=== PATIENT | male | born 1940 | race Caucasian/White ===

== ENCOUNTER 2017-12-16 19:42 | Emergency (ER) | payer MEDICARE, SELFPAY ==
[2017-12-16 19:59] VITALS: BP 159/76; PULSE 60; RESP 16; TEMP 36.6; O2SAT 98
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
[2017-12-16] MEDS: SILVER SULFADIAZINE 1% CREAM 25 GM 1 APPLIC TOP (21:00)
== END 2017-12-16 21:09 | disposition home or self-care (01) ==
PROVIDERS: Emergency Provider Emergency Medicine; Family Provider Internal Medicine; PCP Internal Medicine
DX: T25.122A Burn of first degree of left foot, initial encounter (principal); T25.121A Burn of first degree of right foot, initial encounter; X12.XXXA Contact with other hot fluids, initial encounter
CPT/HCPCS: 99282

== ENCOUNTER → 2019-10-12 11:32 | Outpatient (CLI) | payer MEDICARE, SELFPAY ==
--- NOTE | 2019-10-12 | DI.RAD.S_ITS ---
PROCEDURE: XR CHEST 2V INDICATIONS: Chronic diastolic (congestive) heart failure TECHNIQUE: 2 views of the chest were acquired. COMPARISON: [facility], , CHEST 2 VIEW, 11/01/2012, 9:39. FINDINGS: Surgical changes and devices: Sternotomy wires and CABG clips. Lungs and pleura: Lungs are clear. No pleural effusions or pneumothorax. Presumed high density calcified granulomas projecting in the left lung. Mediastinum: Mediastinal contours are normal. Heart size is normal. Possible small hiatal which could be confirmed with upper GI series as clinically necessary. Bones and chest wall: No suspicious bony abnormalities. Soft tissues appear unremarkable. IMPRESSION: Small hiatal hernia No acute consolidation Dictated by: Jose Auguste M.D. on 10/12/2019 at 15:11 Approved by: Jose Auguste M.D. on 10/12/2019 at 15:13
== END ==
PROVIDERS: Family Provider Internal Medicine; PCP Internal Medicine; Referring Provider Internal Medicine; Visit Provider Internal Medicine
DX: I50.32 Chronic diastolic (congestive) heart failure (principal); K44.9 Diaphragmatic hernia without obstruction or gangrene
CPT/HCPCS: 71046

== ENCOUNTER → 2019-10-16 19:38 | Outpatient (ROUT) | payer MEDICARE, SELFPAY ==
[2019-10-16 19:52] LABS: Add Manual Diff / Slide Review NO; Basophils Absolute Auto 100 /uL (0-100); Basophils Percent Auto 0.6 % (0-2); Eosinophils Absolute Auto 300 /uL (0-450); Eosinophils Percent Auto 2.6 % (2-4); Hematocrit 43.5 % (41-53); Hemoglobin 15.1 g/dL (13.5-17.5); Lymphocytes Absolute Auto 2200 /uL (1100-4500); Lymphocytes Percent Auto 20.1 % (25-40); Mean Corpuscular HGB Conc 34.7 % (30-36); Mean Corpuscular Hemoglobin 30.6 PG (26-34); Mean Corpuscular Volume 88.1 fL (80-100); Monocytes Absolute Auto 1000 /uL (0-900); Monocytes Percent Auto 8.9 % (3-14); Neutrophils Absolute Auto 7400 /uL (1500-7000); Neutrophils Percent Auto 67.8 % (50-75); Platelet Count 316 X10^3/uL (150-400); Red Blood Cell Count 4.94 X10^6/uL (4.5-5.9); Red Cell Distribution Width 13.5 % (11.6-14.8); White Blood Cell Count 10.9 X10^3/uL (4.5-11.0)
[2019-10-16 19:53] LABS: Alanine Aminotransferase 21 IU/L (<50); Albumin Globulin Ratio 1.4 (1.0-2.8); Alkaline Phosphatase 82 U/L (38-126); Aspartate Aminotransferase 31 IU/L (17-59); BUN Creatinine Ratio 17.8 (6-22); Bilirubin Total 0.8 mg/dL (0.2-1.3); Blood Urea Nitrogen 26 mg/dL (9-20); Calcium 9.5 mg/dL (8.4-10.2); Carbon Dioxide 23 mmol/L (22-32); Chloride 106 mmol/L (98-107); Estimated Glomerular Filt Rate 46.5 mL/min (>60); Globulin 2.8 g/dL (1.7-4.1); Glucose 114 mg/dL (80-110); HEMOLYSIS < 15 (0-50); Potassium 4.4 mmol/L (3.4-5.1); Sodium 137 mmol/L (137-145); Total Protein 6.8 g/dL (6.3-8.2)
[2019-10-16 20:01] LABS: NT-proBNP (BNP-Adult 18+) 584 pg/mL (<450)
== END ==
PROVIDERS: Family Provider Internal Medicine; PCP Internal Medicine; Visit Provider Internal Medicine
DX: I50.32 Chronic diastolic (congestive) heart failure (principal)
CPT/HCPCS: 80053; 83880; 85025

== ENCOUNTER → 2019-11-21 15:14 | Outpatient (CLI) | payer MEDICARE, SELFPAY ==
[2019-11-22 19:22] LABS: COVID19 Sendout Not Detected (Not Detect)
== END ==
PROVIDERS: Family Provider Internal Medicine; PCP Internal Medicine; Visit Provider Physician Assistant
DX: Z01.812 Encounter for preprocedural laboratory examination (principal)
CPT/HCPCS: 87635

== ENCOUNTER → 2019-11-24 12:56 | Outpatient (CLI) | payer MEDICARE, SELFPAY ==
--- NOTE | 2019-12-03 12:58 | PM.PFT.1 ---
Pulmonary Function Test Referral & Results Date Patient Seen: 11/24/19 Requesting provider: James Weston Results: The spirometry demonstrates an FVC of 2.30 L which is 62% of predicted. The FEV1 was measured at 1.31 L which is 50% of predicted. The FEV1/FVC ratio was 57 which is 80% of predicted. Following the administration of bronchodilator there was a 38% improvement in FEF 25-75%. Lung volumes show an SVC of 2.47 L which is 60% of predicted. The diffusing capacity was measured at 16.74 which is 56% of predicted. The maximum voluntary ventilation was reduced Interpretation: This study demonstrates moderately severe obstructive lung disease with some limited evidence of benefit following bronchodilator administration, particularly small airway flow based on improvement in FEF 25-75% as above There is also moderate restrictive lung disease present based on reduction SVC There is also significant reduction in diffusing capacity suggesting significant disease at the capillary alveolar level as well This is all consistent with a diagnosis of COPD, clinical correlation suggested
== END ==
PROVIDERS: Family Provider Internal Medicine; PCP Internal Medicine; Referring Provider Internal Medicine; Visit Provider Internal Medicine
DX: R06.02 Shortness of breath (principal); J98.8 Other specified respiratory disorders; Z87.891 Personal history of nicotine dependence
CPT/HCPCS: 94060; 94726; 94729

== ENCOUNTER → 2020-02-03 09:49 | Outpatient (CLI) | payer MEDICARE, SELFPAY ==
[2020-02-05 07:57] LABS: COVID19 Sendout Not Detected (Not Detect)
== END ==
PROVIDERS: Family Provider Internal Medicine; PCP Internal Medicine; Visit Provider Physician Assistant
DX: Z01.812 Encounter for preprocedural laboratory examination (principal)
CPT/HCPCS: 87635

== ENCOUNTER → 2020-02-06 07:31 | Outpatient (CLI) | payer MEDICARE, SELFPAY ==
--- NOTE | 2020-02-06 20:06 | DI.NM.S_ITS ---
DATE OF SERVICE: 02/06/2020 PROCEDURE: Exercise perfusion study. INDICATIONS: Dyspnea on exertion with history of bypass surgery, hypertension. RADIOPHARMACEUTICAL: 26.2 millicurie technetium-99m Myoview IV was injected at stress and 9.9 millicurie technetium-99m Myoview IV was injected at rest. CARDIAC STRESS: The patient underwent exercise perfusion study under the supervision of an attending staff using standard Geovani protocol. He walked on Geovani protocol for 7 minutes 59 seconds, achieved 112 percent of target heart rate, mildly hypertensive blood pressure response. Resting blood pressure 138/78, and peak blood pressure 188/100. Baseline rhythm was sinus. There were no ischemic EKG changes. No significant arrhythmias. No chest pain or anginal symptoms. There were intermittent PVCs without any ventricular tachycardia. RAW DATA: There is increased subdiaphragmatic activity. GATED STUDY: Resting LV ejection fraction 78 and stress LV ejection fraction 91% percent. Resting end-diastolic volume 58 mL. TID ratio 0.57, which is within normal limits. Lung/heart ratio 0.38, which is within normal limits. MYOCARDIAL PERFUSION: Stress supine and resting supine images revealed minimally decreased perfusion of the basal inferior wall, as well as inferior apex, which got resolved during prone images, suggestive of some diaphragmatic tissue attenuation artifact. No convincing ischemia or infarction. CONCLUSION: This is a normal exercise perfusion study. Good exercise tolerance. Functional aerobic impairment -50% percent. Preserved left ventricular function. Some isolated PVCs during stress without any ventricular tachycardia. No ischemic electrocardiographic changes. Overall, this is a low- risk myocardial perfusion scan. Coleen Munroe - Brenda/miguel doc#: [id number]/job#: [id number] dd: 02/06/2020 17:27:00 dt: 02/06/2020 19:54:00 DICTATING MD/COPIES TO: Jan Meadows MD COPIES MNE: ZULAY;
== END ==
PROVIDERS: Family Provider Internal Medicine; PCP Internal Medicine; Referring Provider Nurse Practitioner; Visit Provider Nurse Practitioner
DX: R06.09 Other forms of dyspnea (principal); I25.10 Atherosclerotic heart disease of native coronary artery without angina pectoris; I10 Essential (primary) hypertension; Z95.1 Presence of aortocoronary bypass graft
CPT/HCPCS: 78452; 93017; A9502

== ENCOUNTER → 2020-05-13 10:29 | Outpatient (CLI) | payer MEDICARE, SELFPAY ==
[2020-05-13 11:28] LABS: COVID19 -Nasal RAPID Negative (Negative)
== END ==
PROVIDERS: PCP Internal Medicine; Visit Provider Surgery
DX: Z01.812 Encounter for preprocedural laboratory examination (principal); Z20.822 Contact with and (suspected) exposure to COVID-19
CPT/HCPCS: 87635; C9803

== ENCOUNTER 2020-05-14 08:52 | Day surgery (SDC) | payer OTHER, SELFPAY ==
[2020-05-14] VITALS (10 sets, daily range): BP systolic 121–172; BP diastolic 52–94; PULSE 69–85; RESP 8–18; TEMP 36.6–36.8; O2SAT 92–98; BMI 24.7
[2020-05-14] MEDS: LACTATED RINGERS 1,000 ML 42 ML IV (09:25)
[2020-05-14] MEDS: ACETAMINOPHEN 325 MG TABLET 975 MG PO (09:30)
[2020-05-14] MEDS: CLINDAMYCIN 900 MG/50 ML PIGGYBACK 50 MG IV (10:16)
--- NOTE | 2020-05-14 10:28 | SUR.OPER ---
Supine on padded OR bed, head on pillow, arms secured on padded arm boards at <90 degrees abduction, legs uncrossed, safety belt at thigh, tape over blanket over lower legs.
[2020-05-14] MEDS: BUPIVACAINE 0.25% (PF) VIAL 30 ML INJ (10:45)
[2020-05-14] MEDS: BUPIVACAINE LIPOSOME 266 MG/20 ML VIAL INJ (11:18)
--- NOTE | 2020-05-14 12:57 | P.OP_ITS ---
Operative Date/Time/Diagnoses Date of procedure: 05/14/20 Time of procedure: 12:58 Pre-op diagnosis: bilateral inguinal hernia umbilical hernia Post-op diagnosis: same Procedure & Clinicians Procedure: Open repair of bilateral inguinal hernia with mesh and open repair of umbilical hernia Same procedure as scheduled: Yes Indications: bilateral inguinal hernia and umbilical hernia Surgeon: Rio Smith Operative Notes Findings: colon within the left indirect hernia sac, small left direct and right direct hernias. Umbilical hernia contained omentum Specimen(s): none sent Estimated Blood Loss (mL): 20 Procedure in detail: The patient was placed supine on the table and bilateral lower extremity compression devices were applied. Anesthesia was induced they were intubated with an LMA and received 2g of Ancef. A time-out was performed. They were prepped and draped in sterile fashion. The left external inguinal ring and the anterior superior iliac crest were identified and marked. 1 finger breath above the inguinal ligament the skin was infiltrated with 0.25% bupivacaine. The skin incision was made here and the subcutaneous tissues were divided with electrocautery exposing the external oblique aponeurosis which was then opened along the direction of its fibers. Using blunt dissection the internal oblique aporneurosis was from the external oblique upper leaflet to identify the iliohypogastric nerve. Using a kittner the cord was carefully dissected away from the inguinal canal adjacent to the pubic tubercle. The cord including the vas deferens, testicular bloody supply, ilioguinal and genital nerve were encircled with a [place] drain. A small direct floor defect was identified and it was reduced into the abdomen and the internal oblique aporneuorsis was approximated to the inguinal ligament with Ethibond suture to reapproximate the floor. The cremasteric fibers surrounding the cord were divided using electrocautery adjacent to the internal ring.. The vas deferens and the testicular vessels were preserved and protected. There was a large indirect hernia which was skeletonized away from the vas deferens and testicular blood supply. The indirect hernia was skeletonized back to the internal ring. The hernia sac was opened and it contained a portion of viable colon. This was carefully reduced back into the abdomen. I placed a plug of mesh in to the indirect space given the very large size of the defect and it was secured with vicryl suture to the internal oblique. I selected a 7x 15 cm lightweight Pro Loop hernia mesh. The inferior medial aspect of the mesh was anchored to insertion of the rectus muscle to the pubic tubercle such that there was approximately 2 cm of tubercle overlap with Ethibond and then was run continuously along the inferior edge of the mesh to the shelving edge of the inguinal ligament. Interrupted 3 0 Vicryl suture was used to anchor the superior aspect of the mesh to the conjoined tendon in several places. The tails were then reapproximated loosely around the spermatic cord. The tails of the mesh were then tucked under the external oblique aponeurosis. The repair was checked for hemostasis. The wound was irrigated with sterile saline. The external oblique aponeurosis was reapproximated in a running fashion using 3 0 Vicryl. The subcutaneous tissues were reapproximated with 3 0 Vicryl skin closed with 4 0 Monocryl followed by the application of Dermabond. A curvilinear incision was made inferior to the umbilicus. The subcutaneous tissues were divided. The umbilical hernia was identified and the hernia sac was dissected off the umbilical skin and circumferentially off of the fascia defect. The hernia sac was sharply opened and contained viable omentum. The omentum was reduced back into the abdomen. Using blunt dissection I carefully carefully freed the hernia sac from beneath the fascia defect. The fascia defect was 1 cm in maximal diameter. The fascia was closed primarily with interupted Ethibond sutures. The umbilical skin was tacked to the subcutaneous tissues and then the remainder of the subcutaneous tissues were reapproximated using 3 0 Vicry,l skin closed with 4 0 Monocryl followed by the application of Dermabond and Steri-Strips. The right external inguinal ring and the anterior superior iliac crest were identified and marked. 1 finger breath above the inguinal ligament the skin was infiltrated with 0.25% bupivacaine. The skin incision was made here and the subcutaneous tissues were divided with electrocautery exposing the external oblique aponeurosis which was then opened along the direction of its fibers. Using blunt dissection the internal oblique aporneurosis was from the external oblique upper leaflet to identify the iliohypogastric nerve. Using a kittner the cord was carefully dissected away from the inguinal canal adjacent to the pubic tubercle. The cord including the vas deferens, testicular bloody supply, ilioguinal and genital nerve were encircled with a [place] drain. A small direct floor defect was identified and it was reduced into the abdomen and the internal oblique aporneuorsis was approximated to the inguinal ligament with Ethibond suture to reapproximate the floor. The cremasteric fibers surrounding the cord were divided using electrocautery adjacent to the internal ring.. The vas deferens and the testicular vessels were preserved and protected. There was no evidence of an indirect hernia. I selected a 7x 15 cm lightweight Pro Loop hernia mesh. The inferior medial aspect of the mesh was anchored to insertion of the rectus muscle to the pubic tubercle such that there was approximately 2 cm of tubercle overlap with Ethibond and then was run continuously along the inferior edge of the mesh to the shelving edge of the inguinal ligament. Interrupted 3 0 Vicryl suture was used to anchor the superior aspect of the mesh to the conjoined tendon in several places. The tails were then reapproximated loosely around the spermatic cord. The tails of the mesh were then tucked under the external oblique aponeurosis. The repair was checked for hemostasis. The wound was irrigated with sterile saline. The external oblique aponeurosis was reapproximated in a running fashion using 3 0 Vicryl. The subcutaneous tissues were reapproximated with 3 0 Vicryl skin closed with 4 0 Monocryl followed by the application of Dermabond. At the end of the operation I ensured that both testicles were within the scrotum. The sponge instrument count at the end operation was correct. The patient emerged from anesthesia was extubated and transferred to the postoperative care unit in stable condition. A total of 30 ml of of 0.25% bupivicaine was used to infiltrate the skin. Complications: none Post-operative Condition: stable Disposition: same day surgery
[2020-05-14] MEDS: OXYCODONE IR 5 MG TABLET PO (13:31)
--- NOTE | 2020-05-14 14:23 | SUR.PHASEII ---
Assumed care from MARIAM Vasquez. Dr. Smiht spoke with pt at bedside.Pt ready to go, called. Assisted pt to dress. dressing to groins and abdomen c/d/i. Pt left in stable condition. D/c instructions discussed with at [facility]. Aware to make sure there is a f/u appt scheduled and to warehouse order picker meds at [facility].
== END 2020-05-14 14:00 | disposition home or self-care (01) ==
PROVIDERS: PCP Internal Medicine; Referring Provider Internal Medicine; Visit Provider Surgery
PROC: (CPT 49505; principal; 2020-05-14 10:15)
PROC: (CPT 49505; 2020-05-14 10:15)
DX: K40.20 Bilateral inguinal hernia, without obstruction or gangrene, not specified as recurrent (principal); K42.9 Umbilical hernia without obstruction or gangrene; I10 Essential (primary) hypertension; K21.9 Gastro-esophageal reflux disease without esophagitis; I25.10 Atherosclerotic heart disease of native coronary artery without angina pectoris; N18.9 Chronic kidney disease, unspecified; J44.9 Chronic obstructive pulmonary disease, unspecified
CPT/HCPCS: 49505; 49585; C1781; C9290; J1100; J2405; J2704; J3010

== ENCOUNTER 2020-05-15 15:57 | Inpatient (IN) | payer OTHER, SELFPAY ==
[2020-05-15] VITALS (21 sets, daily range): BP systolic 139–205; BP diastolic 71–99; PULSE 94–112; RESP 13–26; TEMP 36.7–37.2; O2SAT 92–99; BMI 27.5; BMI 25.7
--- NOTE | 2020-05-15 15:57 | DI.CT.S_ITS ---
PROCEDURE: CT ANGIO HEAD AND NECK INDICATIONS: code stroke TECHNIQUE: Noncontrast images were performed earlier in the day and not repeated. After the administration of intravenous contrast, 1 mm thick sections acquired from the aortic arch through the [place] of [place]. Post-contrast 4.5 mm thick sections then re-acquired from the foramen magnum to the vertex. 3-dimensional qpjuimz-jahtdqwrp-dqnunjnbau (MIP) and/or volume rendering reformats were acquired of the central intracranial vasculature and neck separately. COMPARISON: [facility], CT, CT STROKE, 05/15/2020, 15:54. FINDINGS: Image quality: Excellent. BRAIN: CSF spaces: Ventricles are normal in size and shape. Basal cisterns are patent. No extra-axial fluid collections. Brain: No midline shift. No intracranial bleeds or masses. Wilkinson-white matter interface appears intact. Skull and face: Calvarium and facial bones appear intact, without suspicious lesions. Orbits appear normal. Sinuses: Sinuses and mastoids are clear. HEAD CT ANGIOGRAPHY: Anterior circulation: A small amount of retrograde flow can be seen within the distal left internal carotid artery. Both intracranial internal carotid arteries demonstrate atherosclerotic calcification and irregularity, with approximately 50% narrowing. The flow within the paired anterior cerebral arteries is normal and symmetric. The flow within the middle cerebral arteries is normal and symmetric. The anterior communicating artery is seen. No aneurysms are seen. Posterior circulation: Focal calcification is seen involving the right V4 segment, with approximately 40% stenosis. The left V4 segment is congenitally narrowed. There is a normal appearing basilar artery. Flow within the posterior cerebral arteries is normal and symmetric. No aneurysms are seen. NECK CT ANGIOGRAPHY: Carotid system: The great vessels demonstrate a conventional anatomy as they arise from the aortic arch. The origins of the common carotid arteries appear patent. The common carotid arteries demonstrate normal caliber and courses. The bifurcation regions demonstrate atherosclerotic irregularity and calcification. There is occlusion of the left internal carotid artery at its origin. The right proximal internal carotid artery demonstrates approximately 80% narrowing. Posterior circulation: The origins of the vertebral arteries both appear widely patent. The more superior extracranial portions of both vertebral arteries also demonstrate normal courses and calibers. The right vertebral artery is dominant to the left. Soft tissues: Visualized neck soft tissues demonstrate no suspicious abnormalities. Bones: No suspicious bony lesions. Visualized cervical spine appears normally aligned. Sternotomy wires are seen. At least moderate bony degenerative changes are seen. 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 There is approximately 80% narrowing seen involving the right proximal internal carotid artery. There is approximately 50% narrowing seen involving the right V4 segment. Approximately 50% narrowing seen involving both intracranial internal carotid arteries. Incidental note is made of: Moderate cervical spine degenerative change Sternotomy wires Note: Case discussed by telephone with Dr. Aranda at 3:29 p.m. [place] time on May 15, 2020. Any quantitative measurements of stenosis were performed using NASCET criteria. Dictated by: Gorge Tamayo M.D. on 05/15/2020 at 15:25 Approved by: Gorge Tamayo M.D. on 05/15/2020 at 15:31
--- NOTE | 2020-05-15 15:57 | DI.CT.S_ITS ---
PROCEDURE: CT STROKE INDICATIONS: code stroke TECHNIQUE: Noncontrast 4.5 mm thick angled axial sections acquired from the foramen magnum to the vertex, with coronal reformats. For radiation dose reduction, the following was used: automated exposure control, adjustment of mA and/or kV according to patient size. COMPARISON: None. FINDINGS: Image quality: Excellent. CSF spaces: Basal cisterns are patent. No extra-axial fluid collections. The ventricles are symmetric in size and shape. Brain: No intracranial bleeds or masses. There is cerebral volume loss for age, with resultant ventricular and sulcal prominence. There are periventricular and deep white matter chronic small vessel ischemic changes. There is intracranial internal carotid artery atherosclerosis. Skull and face: Calvarium and visualized facial bones appear intact, without suspicious lesions. Sinuses: Visualized sinuses and mastoids are clear. IMPRESSION: Slight motion artifact, no contraindication to tPA administration is found. There is moderate microvascular atherosclerotic change in the deep white matter of each hemisphere. Findings immediately called to the emergency room physician caring for the patient, at 16:21 in the afternoon. This study fulfills neurological imaging criteria for inclusion or exclusion of acute stroke therapies based on available published neurological guidelines. Dictated by: Jarred Pruitt M.D. on 05/15/2020 at 16:20 Approved by: Jarred Pruitt M.D. on 05/15/2020 at 16:21
--- NOTE | 2020-05-15 16:24 | PC.NURSE ---
Upon arrival to ED pt was responsive to verbal stim with profound right facial droop, garbled speech. by the time CT x 2 was complete, pt's speech was improved to a/o x 4 w/ continued dysarthria but able to form words and be understood. Revised last known well after speaking with is 1400 as pt was asleep, woke up unseen, fell and was discovered. No obvious signs of trauma.
[2020-05-15] MEDS: SODIUM CHLORIDE 0.9% 1,000 ML 125 ML IV (16:31)
[2020-05-15 16:35] LABS: COVID19 -Nasal RAPID Negative (Negative)
[2020-05-15 16:35] LABS: Add Manual Diff / Slide Review NO; Basophils Absolute Auto 100 /uL (0-100); Basophils Percent Auto 0.2 % (0-2); Eosinophils Absolute Auto 0 /uL (0-450); Eosinophils Percent Auto 0.1 % (2-4); Hematocrit 45.8 % (41-53); Hemoglobin 15.6 g/dL (13.5-17.5); Lymphocytes Absolute Auto 1700 /uL (1100-4500); Lymphocytes Percent Auto 7.8 % (25-40); Mean Corpuscular HGB Conc 34.1 % (30-36); Mean Corpuscular Hemoglobin 29.8 PG (26-34); Mean Corpuscular Volume 87.5 fL (80-100); Monocytes Absolute Auto 1800 /uL (0-900); Neutrophils Absolute Auto 18500 /uL (1500-7000); Neutrophils Percent Auto 83.9 % (50-75); Platelet Count 345 X10^3/uL (150-400); Red Blood Cell Count 5.23 X10^6/uL (4.5-5.9); Red Cell Distribution Width 13.6 % (11.6-14.8); White Blood Cell Count 22.1 X10^3/uL (4.5-11.0)
[2020-05-15 16:44] LABS: INR 1.1 (0.9-1.3); Prothrombin Time 13.1 SECONDS (10.1-12.7)
[2020-05-15 16:46] LABS: PTT Partial Thromboplastin Tim 32 SECONDS (26.4-36.2)
[2020-05-15 16:47] LABS: Ammonia (NH3) < 9 umol/L (9-30)
[2020-05-15 16:48] LABS: Creatine Kinase 48 U/L (55-170); Ethanol (ETOH) < 10 mg/dL; Lipase 25 U/L (23-300)
[2020-05-15 16:51] LABS: Alanine Aminotransferase 22 IU/L (<50); Albumin 3.8 g/dL (3.5-5.0); Albumin Globulin Ratio 1.3 (1.0-2.8); Alkaline Phosphatase 64 U/L (38-126); Aspartate Aminotransferase 21 IU/L (17-59); BUN Creatinine Ratio 32.7 (6-22); Bilirubin Total 0.7 mg/dL (0.2-1.3); Blood Urea Nitrogen 36 mg/dL (9-20); Calcium 9.6 mg/dL (8.4-10.2); Carbon Dioxide 29 mmol/L (22-32); Chloride 93 mmol/L (98-107); Estimated Glomerular Filt Rate > 60.0 mL/min (>60); Globulin 2.9 g/dL (1.7-4.1); Glucose 141 mg/dL (80-110); HEMOLYSIS < 15 (0-50); Potassium 3.7 mmol/L (3.4-5.1); Sodium 130 mmol/L (137-145); Total Protein 6.7 g/dL (6.3-8.2)
[2020-05-15 17:00] LABS: Troponin I < 0.012 ng/mL (0.01-0.034)
--- NOTE | 2020-05-15 17:10 | ED.NEUROSD ---
HPI - Neuro Symptoms/Deficit General Chief Complaint: Neuro Symptoms/Deficit Stated Complaint: Code Stroke Time Seen by Provider: 05/15/20 15:57 Source: patient, family () and EMS Mode of arrival: EMS Limitations: no limitations History of Present Illness HPI Narrative: Patient is a 80-year-old male brought in by EMS as a code stroke for evaluation of slurred speech and right-sided facial droop. Initially reported last known normal was less than 1 hour prior to arrival in the emergency department. Much of the HPI was obtained from the after she arrived to the ER. Yesterday patient underwent a bilateral inguinal hernia repair as an elective outpatient surgery. According to the surgical notes things seem to have gone well. Patient's states he has not taken any of his pain medication. Last night she states he did not sleep very well. He did have a fall last evening. The patient states he does lost his balance and fell over. He did not injure himself when he fell. Patient's states that today he has been sleeping on and off throughout the day. It turns out that his last known normal was more like 2-1/2 hours prior to arrival in the emergency department although this is somewhat uncertain. Patient's states that he went to sleep. He she heard him fall in his room. Apparently patient tried to get out of bed and slid onto the floor next to the bed. He reports no injuries from this event. She was unable to help him up so she called neighbors to come over and help her. It was during this time when she noticed that he was slurring his words and his baseline right-sided facial droop was potentially worsening. We are unsure if he was on anticoagulation however a review of his notes and his preop note mentions only aspirin. EMS reports that on way to the emergency department the slurring of his words seem to come and go. On Anticoagulants: No (unsure if stopped for surgical procedure) Related Data Home Medications Medication Instructions Recorded Confirmed atorvastatin 80 mg PO DAILY 12/16/17 05/14/20 chlorthalidone 25 mg PO DAILY 12/16/17 05/14/20 metoprolol succinate 25 mg PO DAILY 12/16/17 05/14/20 ascorbate calcium (vitamin C) 500 1 g PO Q6H 05/08/20 05/14/20 mg tablet coenzyme Q10 60 mg tablet 60 mg PO DAILY 05/08/20 05/14/20 garlic 300 mg capsule 300 mg PO DAILY 05/08/20 05/14/20 krill oil 500 mg capsule 500 mg PO DAILY 05/08/20 05/14/20 magnesium 250 mg tablet 250 mg PO DAILY 05/08/20 05/14/20 potassium chloride 10 mEq 10 meq PO DAILY 05/08/20 05/14/20 capsule,extended release rosuvastatin 20 mg tablet 20 mg PO DAILY 05/08/20 05/08/20 turmeric 400 mg capsule 400 mg PO DAILY 05/08/20 05/14/20 vitamin B complex 1 tab PO DAILY 05/08/20 05/14/20 aspirin 325 mg PO DAILY 05/14/20 05/14/20 Previous Rx's Medication Instructions Recorded acetaminophen [Tylenol] 650 mg PO QID PRN #60 cap 05/14/20 docusate sodium [Colace] 100 mg PO BID #30 cap 05/14/20 oxycodone 5 mg PO Q6H PRN #30 tab 05/14/20 Allergies Allergy/AdvReac Type Severity Reaction Status Date / Time Penicillins [PENICILLINS] Allergy Intermediate Eye Verified 05/14/20 09:32 Swelling; hand rash atorvastatin Allergy Unknown Verified 05/14/20 09:32 lisinopril [LISINOPRIL] Allergy Unknown Verified 05/14/20 09:32 Review of Systems Constitutional Constitutional: Denies fatigue, Denies fever(s) and Denies headache(s) Eyes Eyes: Denies change in vision ENT Ears, Nose, Mouth, and Throat: Denies dizziness, Denies headache(s), Reports disequilibrium, Denies sinus pressure and Denies sore throat Cardiovascular Cardiovascular: Denies chest pain, Denies rapid heart rate and Denies dyspnea Respiratory Respiratory: Denies cough and Denies dyspnea Gastrointestinal Gastrointestinal: Reports abdominal pain (Lower abdomen/postop), Denies nausea and Denies vomiting Genitourinary Genitourinary: Denies dysuria Genitourinary: Denies dysuria Musculoskeletal Musculoskeletal: Denies arthralgias and Denies myalgias Integumentary/Breasts Comments: Bruising around the operative sites on his abdomen Neurologic Neurologic: Reports abnormal speech, Denies confusion, Denies dizziness, Denies headache(s) and Reports disequilibrium Comments: Right-sided facial droop, slurring words Psychiatric Psychiatric: Denies confusion Endocrine Endocrine: Denies fatigue Hematologic/Lymphatic On Anticoagulants: No (unsure if stopped for surgical procedure) Allergic/Immunologic Allergic/Immunologic: Denies urticaria Patient History Medical History Benign neoplasm of colon CAD (coronary artery disease) Chronic diastolic (congestive) heart failure Chronic kidney disease COPD (chronic obstructive pulmonary disease) Gastroesophageal reflux HTN (hypertension) Hyperlipemia Impaired fasting glucose Major depressive disorder Male erectile disorder Surgical History (Updated 05/14/20 @ 09:44 by Sandra Vallejo RN) History of cholecystectomy S/P CABG x 3 Social History household members: spouse Smoking Status: Former smoker Smoking Status: Former smoker alcohol intake frequency: a few times a month Substance Use Type: does not use Exam Initial Vital Signs Initial Vital Signs: Vital Signs Pulse Oximetry 94 05/15/20 16:06 Const General: cooperative and comfortable Limitations: mental status not altered HENMT Head: normal to inspection and normocephalic Nose: external nose normal Face and sinus: no abrasions and no edema Mouth: oral mucosae normal Eyes Pupils: PERRL EOM: EOM intact bilaterally Chest Chest: No crepitus and No tenderness Resp Effort & Inspection: normal respiratory effort Auscultation: clear to auscultation bilaterally Cardio Rate: regular rate Rhythm: regular rhythm GI Palpation: soft Other: Surgical incisions look well Skin Other: Surgical seizure insulin abdomen consistent with surgery yesterday Neuro General: patient alert, patient awake and patient oriented x3 Speech: abnormal speech Motor: muscle tone normal throughout Sensory Exam: no sensory deficits noted Coordination: [id number] test normal Extrem General: capillary refill normal Psych Appearance: grossly normal and well kempt Scores GCS Clyman coma scale eye opening: Spontaneous Carla coma scale verbal response: Orientated Clyman coma scale motor response: Obey commands Clyman coma scale total score: 15 NIH Stroke Scale Level of Conciousness: Alert, keenly responsive Ask month/age: Answers both questions correctly. Open/close eyes, close hand: Performs both tasks correctly Best gaze horizontal: Normal Visual barton: No visual loss Facial palsy: Normal symetrical movement ( reports is right-sided facial droop is now normal) Left arm drift: No drift for full 10 sec Right arm drift: No drift for full 10 sec Left leg drift: No drift for full 5 sec Right leg drift: Drifts down, not to bed Limb ataxia: Absent Sensory on face/arms/legs: Normal, no sensory loss Best language: No aphasia, normal Dysarthria: Mild to mod,some slurring Extinction or inattention: No abnormality Total NIH Stroke scale score: 2 Course Orders Ordered: ED Orders 05/15/20 15:[address] angio head and neck Stat 05/15/20 15:59 EKG-12 Lead Stat 05/15/20 16:09 COVID19 Stat 05/15/20 16:21 Ammonia (NH3) Stat Complete Blood Count AUTO DIFF Stat Comprehensive Metabolic Panel Stat Ethanol (ETOH) Stat Lipase Stat Partial Thromboplastin Time Stat Procalcitonin Stat Prothrombin Time INR Stat Troponin & CK Cardiac Panel Stat Acetaminophen (Acetaminophen 325 Mg Tablet) 650 mg PO Q6HR PRN PRN Reason: Fever/Mild Pain (1-3) Aspirin (Aspirin Ec 81 Mg Tablet) 81 mg PO DAILY [facility] Clopidogrel Bisulfate (Clopidogrel 75 Mg Tablet) 75 mg PO DAILY [facility] Enoxaparin Sodium (Enoxaparin 40 Mg/0.4 Ml Syringe) 40 mg SUBCUT DAILY [facility] Sodium Chloride (Normal Saline 0.9%) 1,000 mls @ 125 mls/hr IV CONT [facility] Last Infusion: 05/15/20 18:31 Dose: 0 mls/hr Documented by: Admin: 05/15/20 16:31 Dose: 125 mls/hr Documented by: BIN Magnesium Hydroxide (Magnesium Hydroxide 30 Ml Udc) 30 ml PO DAILY PRN PRN Reason: Constipation Naloxone HCl (Naloxone 0.4 Mg/Ml Vial) 0.2 mg IV Q2MIN PRN PRN Reason: Opiate Reversal Ondansetron HCl (Ondansetron 4 Mg/2 Ml Inj) 4 mg IV Q8HR PRN PRN Reason: Nausea And Vomiting Rosuvastatin Calcium (Rosuvastatin 10 Mg Tablet) 20 mg PO BEDTIME [facility] Vital Signs Vital signs: Vital Signs - 8 hr 05/15/20 16:06 05/15/20 16:07 05/15/20 16:15 Pulse Rate 99 H 99 H Respiratory Rate 16 Blood Pressure 205/98 H Pulse Oximetry 94 96 99 05/15/20 16:17 05/15/20 16:30 05/15/20 16:45 Pulse Rate 100 H 100 H 102 H Respiratory Rate 13 16 17 Blood Pressure 172/87 H 141/73 H 149/84 H Pulse Oximetry 97 96 05/15/20 17:00 05/15/20 17:15 Pulse Rate 108 H 97 H Respiratory Rate 15 16 Blood Pressure 139/82 148/71 H Pulse Oximetry 94 93 MDM - Neuro Symptoms/Deficit Medical Records Attestation: I reviewed the patient's medical records. Lab Data Attestation: I reviewed the patient's lab results. Result diagrams: 05/15/20 16:21 05/15/20 16:21 Labs: Lab Results 05/15/20 05/15/20 05/15/20 Range/Units 16:09 16:21 16:21 WBC 22.1 H (4.5-11.0) X10^3/uL RBC 5.23 (4.5-5.9) X10^6/uL Hgb 15.6 (13.5-17.5) g/dL Hct 45.8 (41-53) % MCV 87.5 (80-100) fL MCH 29.8 (26-34) PG MCHC 34.1 (30-36) % RDW 13.6 (11.6-14.8) % Plt Count 345 (150-400) X10^3/uL Neut % (Auto) 83.9 H (50-75) % Lymph % (Auto) 7.8 L (25-40) % Ward % (Auto) 8.0 (3-14) % Eos % (Auto) 0.1 L (2-4) % Baso % (Auto) 0.2 (0-2) % Neut # (Auto) 73214 H (2754-0093) /uL Lymph # (Auto) 1700 (6238-0179) /uL Ward # (Auto) 1800 H (0-900) /uL Eos # (Auto) 0 (0-450) /uL Baso # (Auto) 100 (0-100) /uL PT (10.1-12.7) SECONDS INR (0.9-1.3) APTT (26.4-36.2) SECONDS Sodium 130 L (137-145) mmol/L Potassium 3.7 (3.4-5.1) mmol/L Chloride 93 L (98-107) mmol/L Carbon Dioxide 29 (22-32) mmol/L BUN 36 H (9-20) mg/dL Creatinine 1.10 (0.66-1.25) mg/dL Estimated GFR > 60.0 (>60) mL/min BUN/Creatinine Ratio 32.7 H (6-22) Glucose 141 H (80-110) mg/dL Calcium 9.6 (8.4-10.2) mg/dL Total Bilirubin 0.7 (0.2-1.3) mg/dL AST 21 (17-59) IU/L ALT 22 (<50) IU/L Alkaline Phosphatase 64 (38-126) U/L Ammonia (9-30) umol/L Total Creatine Kinase (55-170) U/L CK-MB (CK-2) CK-MB (CK-2) Rel Index Troponin I (0.01-0.034) ng/mL Total Protein 6.7 (6.3-8.2) g/dL Albumin 3.8 (3.5-5.0) g/dL Globulin 2.9 (1.7-4.1) g/dL Albumin/Globulin Ratio 1.3 (1.0-2.8) Lipase (23-300) U/L Procalcitonin (<0.5) ng/mL Ethyl Alcohol ( - 10) mg/dL SARS-CoV-2 (PCR) Negative (Negative) 05/15/20 05/15/20 05/15/20 Range/Units 16:21 16:21 16:21 WBC (4.5-11.0) X10^3/uL RBC (4.5-5.9) X10^6/uL Hgb (13.5-17.5) g/dL Hct (41-53) % MCV (80-100) fL MCH (26-34) PG MCHC (30-36) % RDW (11.6-14.8) % Plt Count (150-400) X10^3/uL Neut % (Auto) (50-75) % Lymph % (Auto) (25-40) % Ward % (Auto) (3-14) % Eos % (Auto) (2-4) % Baso % (Auto) (0-2) % Neut # (Auto) (5120-1684) /uL Lymph # (Auto) (5417-7195) /uL Ward # (Auto) (0-900) /uL Eos # (Auto) (0-450) /uL Baso # (Auto) (0-100) /uL PT 13.1 H (10.1-12.7) SECONDS INR 1.1 (0.9-1.3) APTT 32 (26.4-36.2) SECONDS Sodium (137-145) mmol/L Potassium (3.4-5.1) mmol/L Chloride (98-107) mmol/L Carbon Dioxide (22-32) mmol/L BUN (9-20) mg/dL Creatinine (0.66-1.25) mg/dL Estimated GFR (>60) mL/min BUN/Creatinine Ratio (6-22) Glucose (80-110) mg/dL Calcium (8.4-10.2) mg/dL Total Bilirubin (0.2-1.3) mg/dL AST (17-59) IU/L ALT (<50) IU/L Alkaline Phosphatase (38-126) U/L Ammonia (9-30) umol/L Total Creatine Kinase 48 L (55-170) U/L CK-MB (CK-2) TNP CK-MB (CK-2) Rel Index TNP Troponin I < 0.012 (0.01-0.034) ng/mL Total Protein (6.3-8.2) g/dL Albumin (3.5-5.0) g/dL Globulin (1.7-4.1) g/dL Albumin/Globulin Ratio (1.0-2.8) Lipase 25 (23-300) U/L Procalcitonin 0.10 (<0.5) ng/mL Ethyl Alcohol < 10 ( - 10) mg/dL SARS-CoV-2 (PCR) (Negative) 05/15/20 Range/Units 16:21 WBC (4.5-11.0) X10^3/uL RBC (4.5-5.9) X10^6/uL Hgb (13.5-17.5) g/dL Hct (41-53) % MCV (80-100) fL MCH (26-34) PG MCHC (30-36) % RDW (11.6-14.8) % Plt Count (150-400) X10^3/uL Neut % (Auto) (50-75) % Lymph % (Auto) (25-40) % Ward % (Auto) (3-14) % Eos % (Auto) (2-4) % Baso % (Auto) (0-2) % Neut # (Auto) (8711-0350) /uL Lymph # (Auto) (0351-1186) /uL Ward # (Auto) (0-900) /uL Eos # (Auto) (0-450) /uL Baso # (Auto) (0-100) /uL PT (10.1-12.7) SECONDS INR (0.9-1.3) APTT (26.4-36.2) SECONDS Sodium (137-145) mmol/L Potassium (3.4-5.1) mmol/L Chloride (98-107) mmol/L Carbon Dioxide (22-32) mmol/L BUN (9-20) mg/dL Creatinine (0.66-1.25) mg/dL Estimated GFR (>60) mL/min BUN/Creatinine Ratio (6-22) Glucose (80-110) mg/dL Calcium (8.4-10.2) mg/dL Total Bilirubin (0.2-1.3) mg/dL AST (17-59) IU/L ALT (<50) IU/L Alkaline Phosphatase (38-126) U/L Ammonia < 9 L (9-30) umol/L Total Creatine Kinase (55-170) U/L CK-MB (CK-2) CK-MB (CK-2) Rel Index Troponin I (0.01-0.034) ng/mL Total Protein (6.3-8.2) g/dL Albumin (3.5-5.0) g/dL Globulin (1.7-4.1) g/dL Albumin/Globulin Ratio (1.0-2.8) Lipase (23-300) U/L Procalcitonin (<0.5) ng/mL Ethyl Alcohol ( - 10) mg/dL SARS-CoV-2 (PCR) (Negative) Point of Care Testing Glucose POC 145 Imaging Data CTA - brain/neck: Radiologist's Impression: [address] [id number] Scan ReportSigned Patient: [place] HMR#: [id number]: 9Acct:[id number]/Sex: 80 / MDate of Service: 05/15/20Loc: EDAccession Number: [id number] Procedure: CT angio head and neck Ordering Provider: Bebo Aranda D.O. PROCEDURE: CT ANGIO HEAD AND NECK INDICATIONS: code stroke TECHNIQUE: Noncontrast images were performed earlier in the day and not repeated. After the administration of intravenous contrast, 1 mm thick sections acquired from the aortic arch through the [place] of [place]. Post-contrast 4.5 mm thick sections then re-acquired from the foramen magnum to the vertex. 3-dimensional wxovvtx-phqrjhjtr-ynmetkhqgx (MIP) and/or volume rendering reformats were acquired of the central intracranial vasculature and neck separately. COMPARISON: [facility], CT, CT STROKE, 05/15/2020, 15:54. FINDINGS: Image quality: Excellent. BRAIN: CSF spaces: Ventricles are normal in size and shape. Basal cisterns are patent. No extra-axial fluid collections. Brain: No midline shift. No intracranial bleeds or masses. Wilkinson-white matter interface appears intact. Skull and face: Calvarium and facial bones appear intact, without suspicious lesions. Orbits appear normal. Sinuses: Sinuses and mastoids are clear. HEAD CT ANGIOGRAPHY: Anterior circulation: A small amount of retrograde flow can be seen within the distal left internal carotid artery. Both intracranial internal carotid arteries demonstrate atherosclerotic calcification and irregularity, with approximately 50% narrowing. The flow within the paired anterior cerebral arteries is normal and symmetric. The flow within the middle cerebral arteries is normal and symmetric. The anterior communicating artery is seen. No aneurysms are seen. Posterior circulation: Focal calcification is seen involving the right V4 segment, with approximately 40% stenosis. The left V4 segment is congenitally narrowed. There is a normal appearing basilar artery. Flow within the posterior cerebral arteries is normal and symmetric. No aneurysms are seen. NECK CT ANGIOGRAPHY: Carotid system: The great vessels demonstrate a conventional anatomy as they arise from the aortic arch. The origins of the common carotid arteries appear patent. The common carotid arteries demonstrate normal caliber and courses. The bifurcation regions demonstrate atherosclerotic irregularity and calcification. There is occlusion of the left internal carotid artery at its origin. The right proximal internal carotid artery demonstrates approximately 80% narrowing. Posterior circulation: The origins of the vertebral arteries both appear widely patent. The more superior extracranial portions of both vertebral arteries also demonstrate normal courses and calibers. The right vertebral artery is dominant to the left. Soft tissues: Visualized neck soft tissues demonstrate no suspicious abnormalities. Bones: No suspicious bony lesions. Visualized cervical spine appears normally aligned. Sternotomy wires are seen. At least moderate bony degenerative changes are seen. 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 There is approximately 80% narrowing seen involving the right proximal internal carotid artery. There is approximately 50% narrowing seen involving the right V4 segment. Approximately 50% narrowing seen involving both intracranial internal carotid arteries. Incidental note is made of: Moderate cervical spine degenerative change Sternotomy wires Note: Case discussed by telephone with Dr. Aranda at 3:29 p.m. [place] time on May 15, 2020. Any quantitative measurements of stenosis were performed using NASCET criteria. Dictated by: Gorge Tamayo M.D. on 05/15/2020 at 15:25 Approved by: Gorge Tamayo M.D. on 05/15/2020 at 15:31 CT scan - head: Radiologist's Impression: [address] [id number] Scan ReportSigned Patient: Coleen Munroe R#: [id number]: 1940cct:[id number]/Sex: 80 / MDate of Service: 05/15/20Loc: EDAccession Number: [id number] Procedure: CT Stroke Ordering Provider: Bebo Aranda D.O. PROCEDURE: CT STROKE INDICATIONS: code stroke TECHNIQUE: Noncontrast 4.5 mm thick angled axial sections acquired from the foramen magnum to the vertex, with coronal reformats. For radiation dose reduction, the following was used: automated exposure control, adjustment of mA and/or kV according to patient size. COMPARISON: None. FINDINGS: Image quality: Excellent. CSF spaces: Basal cisterns are patent. No extra-axial fluid collections. The ventricles are symmetric in size and shape. Brain: No intracranial bleeds or masses. There is cerebral volume loss for age, with resultant ventricular and sulcal prominence. There are periventricular and deep white matter chronic small vessel ischemic changes. There is intracranial internal carotid artery atherosclerosis. Skull and face: Calvarium and visualized facial bones appear intact, without suspicious lesions. Sinuses: Visualized sinuses and mastoids are clear. IMPRESSION: Slight motion artifact, no contraindication to tPA administration is found. There is moderate microvascular atherosclerotic change in the deep white matter of each hemisphere. Findings immediately called to the emergency room physician caring for the patient, at 16:21 in the afternoon. This study fulfills neurological imaging criteria for inclusion or exclusion of acute stroke therapies based on available published neurological guidelines. Dictated by: Jarred Pruitt M.D. on 05/15/2020 at 16:20 Approved by: Jarred Pruitt M.D. on 05/15/2020 at 16:21 ECG Data Attestation: I personally reviewed and interpreted this ECG as follows: Prior ECG tracings: not available for review Interpretation: Sinus rhythm Ventricular rate 96 Normal axis Normal QRS Normal QTC No ST T wave changes MDM Narrative Medical decision making narrative: Patient's head CT is unremarkable. The CTA shows an occluded left internal carotid artery at its origin. Unsure this is new or old however given his presentation today I would expect that if the entire left internal carotid artery was occluded he would have more neurologic findings other than dysarthria. Patient's symptoms seem to be waxing and waning. His NIH scale changed from 2-3 depending on how bad he was slurring his words. There were periods of time where I could understand what he was saying although he was obviously slurring to times when we could not understand what he was saying. He did not have any motor or sensory findings. I am also somewhat concerned about his last known normal. His states that it was prior to him taking his nap however I somewhat question this given how she discuss the situation. Given his age, surgery yesterday, low NIH score, waxing waning symptoms, and unsure the exact onset feel we should hold on tPA. I did discuss the case with Dr. Boss with [facility] stroke who agrees with this. I did discuss the case with Dr. Garcia hospitalist on today who will admit for further evaluation and treatment. I did discuss this with the patient and his . They both expressed understanding and agreement. Discharge Plan Departure Patient Disposition: Admitted As Inpatient Clinical Impression: Cerebrovascular accident Admit Date/Time: 05/15/20 17:24 Admit Provider: Vicente Garcia
--- NOTE | 2020-05-15 17:45 | DI.RAD.S_ITS ---
PROCEDURE: XR CHEST 1V INDICATIONS: Flu like symptoms TECHNIQUE: One view of the chest was acquired. COMPARISON: [facility], , CHEST 2 VIEW, 11/01/2012, 9:39. [facility], , XR CHEST 2V, 10/12/2019, 11:38. FINDINGS: Surgical changes and devices: Median sternotomy wires are present and appear intact. Lungs and pleura: Minimal streaky left basilar opacities with linear streaking near the costophrenic angle. Findings are favored to represent atelectasis or scarring. Lungs are otherwise clear. No focal consolidations. No pleural effusions or pneumothorax. Mediastinum: Mediastinal contours appear normal. Heart size is normal. Bones and chest wall: No suspicious bony lesions. Overlying soft tissues appear unremarkable. IMPRESSION: Minimal streaky left basilar opacities likely representing atelectasis and/or concurrent scarring. No focal airspace disease. Dictated by: Mateusz Cope M.D. on 05/15/2020 at 18:32 Approved by: Mateusz Cope M.D. on 05/15/2020 at 18:35
--- NOTE | 2020-05-15 17:50 | P.HP_ITS ---
History of Present Illness History of Present Illness Date Patient Seen: 05/15/20 Time Patient Seen: 17:20 Date of Onset of Symptoms: 05/15/20 Chief complaint: Code Stroke Narrative: Patient is an 80-year-old male with history of coronary artery disease, CABG x3 vessels about 8 years ago, hypertension, hyperlipidemia brought to emergency department due to acute change in neurological status. Patient had elective bilateral inguinal hernia repair yesterday May 14. Per spouse, he was feeling a little dizzy later in the evening but otherwise acting normally. He was having some trouble sleeping and did not get to bed until around 2:00 a.m. when he was last witnessed in usual state. This afternoon his spouse heard a thud and found him on the ground between bed and nightstand. She was unable to pick him up and got neighbors assistance and they decided to call 911 since he was not responding to them normally. Medics noted that he had waxing and waning slurring of speech. He was also noted to have right facial droop in the ED. NIHSS was 2 by RN and 3 by . Initial blood pressure in ED was 205/98 and has subsequently been coming down. His CT did not show acute finding. CTA showed 100% occlusion left ICA and 80% occluded right ICA. [place] stroke neurologist was contacted and did not recommend tPA due to length of time since last known well and low NIHSS score. Neurologist also did not think ICA occlusion was causative of the CVA as his deficits were relatively mild without hemiparesis. Patient was administered aspirin. Patient's spouse states he has taken Tylenol only for postop pain. Labs notable for WBC 22.1, 84% neutrophils, sodium 130, BUN 36, creatinine 1.10, glucose 141, procalcitonin 0.10, COVID n egative. Patient History Medical History (Updated 05/15/20 @ 18:00 by Vicente Garcia MD) Benign neoplasm of colon CAD (coronary artery disease) Chronic diastolic (congestive) heart failure Chronic kidney disease COPD (chronic obstructive pulmonary disease) Gastroesophageal reflux HTN (hypertension) Hyperlipemia Impaired fasting glucose Major depressive disorder Male erectile disorder Surgical History (Updated 05/14/20 @ 09:44 by Sandra Vallejo RN) History of cholecystectomy S/P CABG x 3 Family & Social History Social History: household members spouse Safety & Behavioral: Feels Safe in Current Yes Environment Been Physically Hurt or No Threatened By a Person Tobacco & Substance use: Smoking Status Former smoker alcohol intake frequency a few times a month Substance Use Type does not use Meds Home Medications and Allergies Home Medications Medication Instructions Recorded Confirmed Type atorvastatin 80 mg PO DAILY 12/16/17 05/14/20 History chlorthalidone 25 mg PO DAILY 12/16/17 05/14/20 History metoprolol succinate 25 mg PO DAILY 12/16/17 05/14/20 History ascorbate calcium (vitamin C) 500 1 g PO Q6H 05/08/20 05/14/20 History mg tablet coenzyme Q10 60 mg tablet 60 mg PO DAILY 05/08/20 05/14/20 History garlic 300 mg capsule 300 mg PO DAILY 05/08/20 05/14/20 History krill oil 500 mg capsule 500 mg PO DAILY 05/08/20 05/14/20 History magnesium 250 mg tablet 250 mg PO DAILY 05/08/20 05/14/20 History potassium chloride 10 mEq 10 meq PO DAILY 05/08/20 05/14/20 History capsule,extended release rosuvastatin 20 mg tablet 20 mg PO DAILY 05/08/20 05/08/20 History turmeric 400 mg capsule 400 mg PO DAILY 05/08/20 05/14/20 History vitamin B complex 1 tab PO DAILY 05/08/20 05/14/20 History acetaminophen [Tylenol] 650 mg PO QID PRN #60 cap 05/14/20 Rx aspirin 325 mg PO DAILY 05/14/20 05/14/20 History docusate sodium [Colace] 100 mg PO BID #30 cap 05/14/20 Rx oxycodone 5 mg PO Q6H PRN #30 tab 05/14/20 Rx Allergies Allergy/AdvReac Type Severity Reaction Status Date / Time Penicillins [PENICILLINS] Allergy Intermediate Eye Verified 05/14/20 09:32 Swelling; hand rash atorvastatin Allergy Unknown Verified 05/14/20 09:32 lisinopril [LISINOPRIL] Allergy Unknown Verified 05/14/20 09:32 Review of Systems Review of Systems ROS: Yes All systems reviewed with the patient and are negative except as otherwise documented Exam Vital Signs (past 8 hours): - 05/15/20 16:06 05/15/20 16:07 05/15/20 16:15 Pulse Rate 99 H 99 H Respiratory Rate 16 Blood Pressure 205/98 H Pulse Oximetry 94 96 99 05/15/20 16:17 05/15/20 16:30 05/15/20 16:45 Pulse Rate 100 H 100 H 102 H Respiratory Rate 13 16 17 Blood Pressure 172/87 H 141/73 H 149/84 H Pulse Oximetry 97 96 05/15/20 17:00 05/15/20 17:15 Pulse Rate 108 H 97 H Respiratory Rate 15 16 Blood Pressure 139/82 148/71 H Pulse Oximetry 94 93 Oxygen Delivery Method Room Air Narrative Exam Narrative: General: Elderly sleepy male HEENT: Nontraumatic, anicteric, pupils 2 mm equal and reactive, EOMI Neck: Supple without lymphadenopathy Lungs: Clear to auscultation Heart: Normal S1 and S2, regular rate and rhythm, no murmur Abdomen: Nondistended, recent aranza umbilical and bilateral inguinal surgical sites are clean, dry, mild bruising without erythema Extremities: Warm, dry without edema Neurological: Alert on presentation to ED, now sleepy but awakens briefly with verbal prompting, able to follow simple commands, speech is severely aphasic, there is a mild right facial droop, no pronator drift, no leg drift, light touch sensation intact Objective Labs Result Diagrams: 05/15/20 16:21 05/15/20 16:21 Labs: Laboratory Results - last 24 hr 05/15/20 05/15/20 05/15/20 16:09 16:21 16:21 WBC 22.1 H RBC 5.23 Hgb 15.6 Hct 45.8 MCV 87.5 MCH 29.8 MCHC 34.1 RDW 13.6 Plt Count 345 Neut % (Auto) 83.9 H Lymph % (Auto) 7.8 L [place] % (Auto) 8.0 Eos % (Auto) 0.1 L Baso % (Auto) 0.2 Neut # (Auto) 65395 H Lymph # (Auto) 1700 [place] # (Auto) 1800 H Eos # (Auto) 0 Baso # (Auto) 100 PT INR APTT Sodium 130 L Potassium 3.7 Chloride 93 L Carbon Dioxide 29 BUN 36 H Creatinine 1.10 Estimated GFR > 60.0 BUN/Creatinine Ratio 32.7 H Glucose 141 H Calcium 9.6 Total Bilirubin 0.7 AST 21 ALT 22 Alkaline Phosphatase 64 Ammonia Total Creatine Kinase CK-MB (CK-2) CK-MB (CK-2) Rel Index Troponin I Total Protein 6.7 Albumin 3.8 Globulin 2.9 Albumin/Globulin Ratio 1.3 Lipase Procalcitonin Ethyl Alcohol SARS-CoV-2 (PCR) Negative 05/15/20 05/15/20 05/15/20 16:21 16:21 16:21 WBC RBC Hgb Hct MCV MCH MCHC RDW Plt Count Neut % (Auto) Lymph % (Auto) [place] % (Auto) Eos % (Auto) Baso % (Auto) Neut # (Auto) Lymph # (Auto) [place] # (Auto) Eos # (Auto) Baso # (Auto) PT 13.1 H INR 1.1 APTT 32 Sodium Potassium Chloride Carbon Dioxide BUN Creatinine Estimated GFR BUN/Creatinine Ratio Glucose Calcium Total Bilirubin AST ALT Alkaline Phosphatase Ammonia Total Creatine Kinase 48 L CK-MB (CK-2) TNP CK-MB (CK-2) Rel Index TNP Troponin I < 0.012 Total Protein Albumin Globulin Albumin/Globulin Ratio Lipase 25 Procalcitonin 0.10 Ethyl Alcohol < 10 SARS-CoV-2 (PCR) 05/15/20 16:21 WBC RBC Hgb Hct MCV MCH MCHC RDW Plt Count Neut % (Auto) Lymph % (Auto) [place] % (Auto) Eos % (Auto) Baso % (Auto) Neut # (Auto) Lymph # (Auto) [place] # (Auto) Eos # (Auto) Baso # (Auto) PT INR APTT Sodium Potassium Chloride Carbon Dioxide BUN Creatinine Estimated GFR BUN/Creatinine Ratio Glucose Calcium Total Bilirubin AST ALT Alkaline Phosphatase Ammonia < 9 L Total Creatine Kinase CK-MB (CK-2) CK-MB (CK-2) Rel Index Troponin I Total Protein Albumin Globulin Albumin/Globulin Ratio Lipase Procalcitonin Ethyl Alcohol SARS-CoV-2 (PCR) Assessment & Plan Assessment & Plan narrative: Patient is an 80-year-old male with history of coronary artery disease, CABG x3 vessels about 8 years ago, hypertension, hyperlipidemia brought to emergency department due to acute change in neurologic al status. Patient had elective bilateral inguinal hernia repair May 14. Acute CVA, present on admission, active -patient presenting with new onset severe aphasia, right facial droop, not can didate for tPA -head CT no acute findings, CT a with complete occlusion left ICA and 80% occluded right ICA, per stroke neurologist ICA occlusions are not likely etiology for his stroke -EKG sinus rhythm -received aspirin, add clopidogrel in a.m. to ASA 81 mg q.d. -allow permissive hypertension -NS at 125 cc/hour while NPO -neuro check q.4 hours -telemetry -brain MRI -echo -NPO until speech eval -PT/OT/ST consult -outpatient vascular surgery follow-up for carotid artery stenosis 2. Acute leukocytosis present on admission, active -likely acute stress response versus infection, patient is afebrile and has not had a cough -chest x-ray reported as minimal streaky left lung infiltrate likely atelectasis or scar, appears similar to prior years x-rays -urinalysis normal -repeat CBC in a.m. 3. Hyperlipidemia -check lipid panel -continue statin 4. Essential hypertension -currently not on home meds, per last visit note on 05/07/[address] Weston patient has not been taking his chlorthalidone or metoprolol tartrate 5. Status post bilateral inguinal hernia repair 05/14/2020 -wound without sign of infection, stroke is not related to recent surgery Admit to inpatient service Code status: Full code DVT prophylaxis: Enoxaparin Surrogate decision maker: Spouse
[2020-05-15 18:21] LABS: Bacteria Urine None Seen; RBC Urine None Seen (0-5/HPF)
[2020-05-15 18:22] LABS: Appearance Urine UA CLEAR; Bilirubin Urine UA NEGATIVE (NEGATIVE); Color Urine UA YELLOW; Glucose Urine UA NEGATIVE (Negative); Ketones Urine UA NEGATIVE (NEGATIVE); Leukocyte Esterase Urine UA NEGATIVE (NEGATIVE); Nitrite Urine UA NEGATIVE (Negative); Occult Blood Urine UA NEGATIVE (Negative); Protein Urine UA NEGATIVE (Negative); Urobilinogen Urine UA 0.2 E.U./dL (0.2)
[2020-05-15 18:35] LABS: Culture Indicated Urine Cult Not Indicated; Squamous Epithelial Cell Urine 0-1 /HPF (0-5/HPF); WBC Urine 0-1/HPF (0-5/HPF)
--- NOTE | 2020-05-15 18:43 | DI.MRI.S_ITS ---
PROCEDURE: MR HEAD/BRAIN WO CON INDICATIONS: CVA TECHNIQUE: Non-contrast axial T1 spin echo, axial T2 fast spin echo, sagittal and axial FLAIR, coronal T2 fast spin echo, axial gradient echo, axial diffusion and ADC through the brain. COMPARISON: [facility], CT, CT STROKE, 05/15/2020, 15:54. FINDINGS: Image quality: Excellent. CSF spaces: Ventricles appear symmetric in size and shape. Basal cisterns are patent. No extra-axial fluid collections. Brain: No intracranial bleeds or mass effects. There is cerebral volume loss for age. There are periventricular and deep white matter chronic small vessel ischemic changes. Brainstem appears normal. Diffusion-weighted images show acute ischemic insult involving the cortex of the left posterior and posteromedial parietal lobe. There is abnormal diffusion restriction with corresponding low signal on ADC map. No chronic ischemic insults. Normal intravascular flow voids are present. Skull and face: Calvarial bone marrow is normal in signal. Orbits are normal. Sinuses: Sinuses and mastoids are clear. IMPRESSION: 1. Acute cortical infarction involving the posterior and posteromedial aspect of the left parietal lobe. No evidence for mass or mass effect. No abnormal extra-axial fluid or acute hemorrhage. 2. Age related senescent changes and sequela of chronic small vessel ischemic disease. Findings were discussed with Dr. Antunez of the emergency department at 8:20 p.m. PST. Dictated by: Mateusz Cope M.D. on 05/15/2020 at 20:17 Approved by: Mateusz Cope M.D. on 05/15/2020 at 20:25
--- NOTE | 2020-05-15 18:44 | DI.ECHO.S_ITS ---
[facility] +---------+ : : [address] : [address] : : : : [id number] : : : : Phone: [phone] Echocardiogram Report + + :Name: MITALI CALZADA Study Date: 05/16/2020 Height: 68 in : :[facility] ReadingLocation: Weight: 166 lb : : Gender: Male BSA: 1.9 m2 : :: 1940 Age: 80 yrs BP: 112/64 mmHg: :Reason For Study: CVA : :Ordering Physician: ROSANNA, : :GONZALO Performed By: Paula Mcbride : :Referring: GONZALO MARTE : + + Interpretation Summary The patient was in sinus tachycardia with heart rates between 100-107 bpm during the exam. The left ventricular cavity is small. The left ventricle is hyperdynamic. The ejection fraction is estimated to be 75-80%. During systole, there is almost complete obliteration of LV apex. Based on Doppler, no critical intracavitary gradient. The right ventricle grossly appears normal in size with probable normal systolic function. Aortic valve mild to moderately calcified with nodular densities attached to the noncoronary as well as right coronary cusps. There is mildly reduced leaflet mobility. There is no hemodynamically significant valvular aortic stenosis. There is mild tricuspid regurgitation. The right ventricular systolic pressure is estimated to be at least 27 mmHg based on an estimated right atrial pressure of 3 mm Hg. The ascending aorta is mildly enlarged. Procedure: A two-dimensional transthoracic echocardiogram with color flow and Doppler was performed. The study quality was technically difficult. There is no prior echocardiogram noted for this patient. The patient was in sinus tachycardia with heart rates between 100-107 bpm during the exam. Left Ventricle: The left ventricular cavity is small. Proximal septal thickening is noted. An intracavitary gradient is suspected. There is no thrombus. The left ventricle is hyperdynamic. The ejection fraction is estimated to be 75-80%. During systole, there is almost complete obliteration of LV apex. Based on Doppler, no critical intracavitary gradient. Septal motion is consistent with conduction abnormality. Diastolic function could not be accurately assessed due to tachycardia. Right Ventricle: The right ventricle grossly appears normal in size with probable normal systolic function. Atria: Both atria are normal in size. There is no Doppler evidence for an interatrial shunt. Mitral Valve: There is mild mitral annular calcification. The mitral valve leaflets are slightly calcified. There is trace mitral regurgitation. Aortic Valve: The aortic valve is not well visualized. The aortic valve is trileaflet. Aortic valve mild to moderately calcified with nodular densities attached to the noncoronary as well as right coronary cusps. There is mildly reduced leaflet mobility. There is no hemodynamically significant valvular aortic stenosis. There is trace aortic regurgitation. Tricuspid Valve: The tricuspid valve is normal in structure and function. There is mild tricuspid regurgitation. The right ventricular systolic pressure is estimated to be at least 27 mmHg based on an estimated right atrial pressure of 3 mm Hg. Pulmonic Valve: The pulmonic valve is not well visualized. There is no pulmonic valvular regurgitation. Great Vessels: The aortic root is normal size. The ascending aorta is mildly enlarged. The aortic arch could not be visualized. The IVC is of normal diameter and collapses greater than 50% with a sniff. This suggests a low right atrial pressure of 3 mm Hg. Pericardium/ Pleura There is no pericardial effusion. There is no pleural effusion. MMode/2D Measurements & Calculations LVOT diam: 2.3 cm LA A2 area: 17.0 cm2 Ao root diam: 3.4 cm LA A4 area: 13.1 cm2 asc Aorta Diam: 3.6 cm LA length (vol): 5.3 cm LA vol: 35.7 ml LA vol index: 18.9 ml/m2 RA long axis: 3.7 cm RVD1 (basal): 3.7 cm RA area: 9.3 cm2 RA vol: 20.2 ml RA : 10.7 ml/m2 IVC diam: 1.2 cm Doppler Measurements & Calculations Ao V2 max: 129.9 cm/sec LVOT Max Sarath: 120.0 cm/sec Ao V2 mean: 92.8 cm/sec LV V1 max P.8 mmHg Ao max P.8 mmHg LV V1 VTI: 16.5 cm Ao mean P.7 mmHg DREW(I,D): 3.7 cm2 Ao V2 VTI: 18.8 cm DREW(V,D): 3.8 cm2 sev ratio: 0.88 DREW indexed to BSA (cm^2/m^2): 1.9 MV E max sarath: 63.2 cm/sec TR max sarath: 242.8 cm/sec MV A max sarath: 112.9 cm/sec TR max P.6 mmHg MV E/A: 0.56 PA V2 max: 75.7 cm/sec Med Peak E' Sarath: 5.5 cm/sec PA V2 mean: 48.0 cm/sec E/E' med: 11.5 PA mean P.1 mmHg Lat Peak E' Sarath: 9.5 cm/sec PA pr(Accel): 22.5 mmHg E/E' lat: 6.6 E/e' average: 9.1 MV dec time: 0.16 sec SVLVOT): 68.8 ml Reading Physician:11:58 AM
[2020-05-15 19:27] LABS: Cholesterol 147 mg/dL (140-199); HDL Cholesterol 56 mg/dL (40-60); LDL Cholesterol Calculated 75 mg/dL (<100); Triglycerides 78 mg/dL (35-150)
--- NOTE | 2020-05-15 22:14 | PC.NURSE ---
Pt arrived via gurney, slide board was used to move to bed, connected to monitoring equipment. Upon assessment pt shows severe aphasia, only occasionally able to make words that can be understood. Face shows a right facial droop (indicated by to be from a previous CVA). 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 Pt taken via gurney to MRI at 1850, remained at bedside. Pt returned to room, tele indicates ST with HR 102-114, SpO2 93-98% on room air. NPO diet until seen by speech therapy tomorrow. Bed low and locked, call light within reach, will continue to monitor.
[2020-05-15 23:44] LABS: Magnesium 1.6 mg/dL (1.6-2.3)
[2020-05-15] MEDS: METOCLOPRAMIDE 10 MG/2 ML INJ 5 MG IV (23:54)
[2020-05-16] VITALS (99 sets, daily range): BP systolic 58–208; BP diastolic 35–102; PULSE 99–193; RESP 16–100; TEMP 36.6–38.2; O2SAT 75–100; BMI 25.9
--- NOTE | 2020-05-16 | DI.RAD.S_ITS ---
PROCEDURE: XR CHEST 1V INDICATIONS: OG and ET tube placement TECHNIQUE: One view of the chest was acquired. COMPARISON: [facility], CR, XR CHEST 1V, 05/16/2020, 16:19. FINDINGS: Surgical changes and devices: Endotracheal tube is seen with tip approximately 4 cm above the spike. Enteric tube is seen traversing the diaphragm with tip projecting over the left upper quadrant stomach bubble. Sternotomy wires and mediastinal clips are noted. Lungs and pleura: Patient is rotated, which compromises evaluation of the lungs. However, no definite airspace opacity is seen. There is no pleural effusion or pneumothorax. Mediastinum: Mediastinal contours appear normal. Heart size is normal. Bones and chest wall: No suspicious bony lesions. Overlying soft tissues appear unremarkable. Degenerative changes are seen in the right shoulder and included spine. IMPRESSION: Endotracheal tube and enteric tube as described above. Dictated by: Arthur Page M.D. on 05/16/2020 at 18:41 Approved by: Arthur Page M.D. on 05/16/2020 at 18:43
[2020-05-16] MEDS: SODIUM CHLORIDE 0.9% 1,000 ML 125 ML IV ×2 (01:57→10:03)
[2020-05-16 05:21] LABS: Hematocrit 41.7 % (41-53); Hemoglobin 14.3 g/dL (13.5-17.5); Mean Corpuscular HGB Conc 34.2 % (30-36); Mean Corpuscular Hemoglobin 29.8 PG (26-34); Mean Corpuscular Volume 86.9 fL (80-100); Platelet Count 330 X10^3/uL (150-400); Red Cell Distribution Width 13.4 % (11.6-14.8); White Blood Cell Count 22.1 X10^3/uL (4.5-11.0)
[2020-05-16 05:22] LABS: Add Manual Diff / Slide Review YES
--- NOTE | 2020-05-16 05:59 | DI.RAD.S_ITS ---
PROCEDURE: XR CHEST 1V INDICATIONS: congestion, leukocytosis, poss aspiration TECHNIQUE: One view of the chest was acquired. COMPARISON: [facility], CR, XR CHEST 2V, 10/12/2019, 11:38. [facility], CR, XR CHEST 1V, 05/15/2020, 18:01. FINDINGS: Surgical changes and devices: Sternotomy. Lungs and pleura: Lungs are clear. No pleural effusions or pneumothorax. Mediastinum: Mediastinal contours appear normal. Heart size is normal. Bones and chest wall: No suspicious bony lesions. Overlying soft tissues appear unremarkable. IMPRESSION: No acute cardiopulmonary disease. No significant discrepancy with the operations supervisor 2nd shift radiology preliminary report. Dictated by: Evie Soto M.D. on 05/16/2020 at 8:49 Approved by: Evie Soto M.D. on 05/16/2020 at 8:50
[2020-05-16 06:08] LABS: Neutrophils Absolute Manual 18564 /uL (3000-5900); RBC Morphology Normal Morphology; Total Cells Counted 100
--- NOTE | 2020-05-16 06:37 | PC.NURSE ---
Signal Person Note-Patient has been drowsy, rouses to voice, opens eyes but does not keep then open, speech mumbled, can understand [facility] age, month, year, follows directions turning in bed, equal strength in both arms and legs during assessment at midnight, NIH=5. During CXR in am, patient was very drowsy, had moderate increased Rt arm weakness and Rt leg weakness, could not keep eyes open for thorough NIH score, close to 11, pupils 2mm equal reactive, speech is same as before. Informed Wes GILBERT of changes.
--- NOTE | 2020-05-16 07:02 | DI.CT.S_ITS ---
PROCEDURE: CT HEAD/BRAIN WO CON INDICATIONS: CVA, increased weakness TECHNIQUE: Noncontrast 4.5 mm thick angled axial sections acquired from the foramen magnum to the vertex, with coronal and sagittal reformats. For radiation dose reduction, the following was used: automated exposure control, adjustment of mA and/or kV according to patient size. COMPARISON: [facility], MR, MR HEAD/BRAIN WO CON, 05/15/2020, 19:10. [facility], CT, CT STROKE, 05/15/2020, 15:54. FINDINGS: Image quality: Excellent. CSF spaces: Basal cisterns are patent. No extra-axial fluid collections. The ventricles are symmetric in size and shape. Brain: Hypodensity in the left temporoparietal lobe is consistent with subacute infarct. No intracranial bleeds or masses. There is cerebral volume loss for age, with resultant ventricular and sulcal prominence. There are periventricular and deep white matter chronic small vessel ischemic changes. There is intracranial internal carotid artery atherosclerosis. Skull and face: Calvarium and visualized facial bones appear intact, without suspicious lesions. Sinuses: Visualized sinuses and mastoids are clear. IMPRESSION: 1. Subacute infarct of the left temporoparietal lobe. No intracranial bleed. 2. Cerebral volume loss and chronic microvascular ischemic changes. Dictated by: Evie Soto M.D. on 05/16/2020 at 8:40 Approved by: Evie Soto M.D. on 05/16/2020 at 8:48
[2020-05-16] MEDS: ENOXAPARIN 40 MG/0.4 ML SYRINGE SUBCUT (10:03)
--- NOTE | 2020-05-16 10:29 | PT.IIE ---
Surgical History (Last Updated 05/14/20 @ 09:44 by Sandra Vallejo RN) History of cholecystectomy S/P CABG x 3 Medical History (Last Reviewed 05/15/20 @ 18:46 by Bebo Aranda DO) Benign neoplasm of colon CAD (coronary artery disease) Chronic diastolic (congestive) heart failure Chronic kidney disease COPD (chronic obstructive pulmonary disease) Gastroesophageal reflux HTN (hypertension) Hyperlipemia Impaired fasting glucose Major depressive disorder Male erectile disorder Physical Therapy Inpatient Evaluation/Re-Eval M1 PT/OT-IP Prior Functional Status Start: 05/16/20 12:04 Freq: NEEDED Status: Active Protocol: Document 05/16/20 10:29 AB (Rec: 05/16/20 12:14 AB [id number]) Medical Review Prior Functional Status Medical History Reviewed Yes Communication pt has aphasia and has difficulty following directions Mobility and Gait per spouse, pt is independent with all mobitilies and ambulation without AD and pt is the one assisting the spouse at home Social History Household Members spouse Living Arrangements House Number of Floors (Floors) One Floor Number of Stairs To Enter/Railing? 12 steps to enter with bilateral rails Home Environment Standard Height Toilet,Tub/ Shower Home Equipment Hand Held Shower M2 PT-IP Current Condition Start: 05/16/20 12:04 Freq: NEEDED Status: Active Protocol: Document 05/16/20 10:29 AB (Rec: 05/16/20 12:14 AB [email or web address]) Physical Therapy Current Condition Current Condition Evaluation Date 05/16/20 Treatment Diagnosis CVA; difficulty in walking Onset Date 05/15/20 Precautions Other Precautions falls M3 PT-IP Subjective Start: 05/16/20 12:04 Freq: NEEDED Status: Active Protocol: Document 05/16/20 10:29 AB (Rec: 05/16/20 12:14 AB [email or web address]) Subjective Physical Therapy Visit Type Type Initial Evaluation Visit Start Time 10:29 Visit Stop Time 11:00 Total Visit Minutes 31 Number of AUTOMOTIVE GENERAL MANAGER Visits 0 M4 PT-IP Mobility and Gait Start: 05/16/20 12:04 Freq: NEEDED Status: Active Protocol: Document 05/16/20 10:29 AB (Rec: 05/16/20 12:14 AB [id number]) PT-Bed Mobility Assessment Supine to Sit Supine to Sit Maximum Assistance PT-Transfer Assessment Sit to and From Stand Sit to and from Stand Maximum Assistance,1 Person Assistance,Use of Upper Extremities Equipment Transfer Assistive Device Gait Belt,Front Wheeled Walker Orthotic/Prosthetic Devices or Brace: No Transfers Transfer Destination Chair Transfer Technique Stand Step Pivot Transfer Ability Level of Assist Maximum Assistance,1 Person Assistance,Use of Upper Extremities Comments Mobility Comments pt has difficulty following directions and is impulsive. pt requires cues with all tasks and also to keep eyes open. completed supine to sit max A and cues. pt was able to sit on EOB with initial mod A and was able to maintain sitting SBA to CGA after repositioning. pt completed sit to stand max A and cues x 2 attempts and step transfer to chair using FWW max A and cues. required assist for RUE to position on FWW. completed sit to stand from chair max A and cues and ambulated in room ~ 20 ft using FWW max A and cues with increase lateral trunk lean to the R and max cues for directions and safety. positioned pt on chair. call light and table placed within reach. chair alarm provided by NAC. informed spouse regarding pt's mobility level and SNF recommendation. spouse understood. Gait Assessment Gait Gait Assistance Required: Maximum Assistance Distance (Feet) 20 Able to Maintain Weight Bearing Status Yes During Gait Assistive Devices Assistive Device Gait Belt,Front Wheeled Walker Orthotic/Prosthetic Devices or Brace: No Gait Deviations General Gait Pattern Antalgic,Decreased Stride Length,Decreased Feet Clearance,Lateral Trunk Lean, Step-to Gait Factors Limiting Gait Function Factors Limiting Gait Function Decreased Activity Tolerance, Decreased Sensation,Decreased Strength,Difficulty Following Directions,Poor Balance,Poor Safety Awareness PT-Balance Assessment Sitting Balance and Reactions Static Sitting Balance Ability Fair Dynamic Sitting Balance Ability Fair Standing Balance and Reactions Static Standing Balance Ability Poor Dynamic Standing Balance Ability Poor Device Used FWW M5 PT-IP Objective Assessments Start: 05/16/20 12:04 Freq: NEEDED Status: Active Protocol: Document 05/16/20 10:29 AB (Rec: 05/16/20 12:14 AB [id number]) Orientation Orientation/Cognition Level of Alertness Confusional State Orientation Name,Place Language Function Ability Expressive Aphasia,Receptive Aphasia Safety Awareness Decreased Safety Awareness Memory Description Short Term Impaired,Publishing Director Impaired Gross Range of Motion Lower Extremity ROM Assessment Within Functional Limits Strength Lower Extremity Strength Assessment Right Impaired Hip 3+/5 Knee 3+/5 Coordination Assessment Gross Coordination Gross Coordination Impaired Sensation Assessment Sensation Gross Sensation Right LE Impaired Light Touch Impaired Proprioception (Position) Impaired Sensation Description Numbness M6 PT-IP Treatment Start: 05/16/20 12:04 Freq: NEEDED Status: Active Protocol: Document 05/16/20 10:29 AB (Rec: 05/16/20 12:14 AB [id number]) Physical Therapy Treatment Education Education Provided Safety M7 PT-IP Assessment and Plan Start: 05/16/20 12:04 Freq: NEEDED Status: Active Protocol: Document 05/16/20 10:29 AB (Rec: 05/16/20 12:14 AB [email or web address]) PT Summary Assessment and Plan Potential Rehabilitation Potential Good Status of Condition at Evaluation Evolving Summary Impairments Pain,ROM,Strength,Balance, Coordination,Sensation,Tone, Cognition,Bed Mobility, Transfers,Gait,Activity Tolerance Assessment Summary pt requiring max A with all mobilities and ambulation using FWW, is impulsive and has decrease safety awareness. pt will require SNF rehab to improve strength and functional mobility. Goals Bed Mobility Goal Standby Assistance Transfer Goal Standby Assistance,Front Wheeled Walker Gait Goal Standby Assistance,Front Wheel Walker Gait Distance 50 Other Goals up/down 12 steps B rails min A Days to Meet Goals 10 Frequency of Treatment Frequency Of Treatment Twice a Day Treatment Plan Physical Therapy Treatment Plan Bed Mobility Training,Transfer Training,Gait Training, Therapeutic Exercise,Balance Retraining,Post Op Education, Discharge Planning,Hot or Cold Pack,Neuromuscular Re-ed, Coordination Retraining,Manual Therapy Recommendations To Nursing Amount of Assist Needed 2 Person Assist Discharge Recommendations PT Discharge Recommendations SNF Rehab Transportation Needs at Discharge Wheelchair/Cabulance
--- NOTE | 2020-05-16 13:55 | PT.IPTN ---
Physical Therapy Treatment Note M2 PT-IP Current Condition Start: 05/16/20 12:04 Freq: NEEDED Status: Active Protocol: Document 05/16/20 10:29 AB (Rec: 05/16/20 12:14 AB [email or web address]) Physical Therapy Current Condition Current Condition Evaluation Date 05/16/20 Treatment Diagnosis CVA; difficulty in walking Onset Date 05/15/20 Precautions Other Precautions falls M3 PT-IP Subjective Start: 05/16/20 12:04 Freq: NEEDED Status: Active Protocol: Document 05/16/20 13:55 AB (Rec: 05/16/20 14:57 AB [id number]) Subjective Physical Therapy Visit Type Type Treatment Note Visit Start Time 13:55 Visit Stop Time 14:12 Total Visit Minutes 17 Number of VETERINARY X RAY OPERATOR Visits 0 M4 PT-IP Mobility and Gait Start: 05/16/20 12:04 Freq: NEEDED Status: Active Protocol: Document 05/16/20 13:55 AB (Rec: 05/16/20 14:57 AB [id number]) PT-Bed Mobility Assessment Supine to Sit Supine to Sit Maximum Assistance,1 Person Assistance Scooting Scooting to Edge of Bed Maximum Assistance PT-Transfer Assessment Sit to and From Stand Sit to and from Stand Maximum Assistance,1 Person Assistance,Use of Upper Extremities Equipment Transfer Assistive Device Gait Belt,Front Wheeled Walker Orthotic/Prosthetic Devices or Brace: No Transfers Transfer Destination Chair Transfer Technique ambulated using FWW Transfer Ability Level of Assist Maximum Assistance,1 Person Assistance,2 Person Assistance ,Use of Upper Extremities Comments Mobility Comments pt continues to require cues to keep his eyes open. completed supine to sit max A and max cues with HOB elevated . completed sit to stand max A and max cues. pt ambulated in room requiring max A ~ 10 ft using FWW. pt then started to sit down without a chair behind him and PT has to cue and support pt and OT positioned bedside commode for pt to sit on. positioned chair next to pt and pt completed step transfer using FWW max A and cues. positioned pt on chair. call light and table placed within reach. Gait Assessment Gait Gait Assistance Required: Maximum Assistance,1 Person Assist Distance (Feet) 10 Able to Maintain Weight Bearing Status Yes During Gait Assistive Devices Assistive Device Front Wheeled Walker Orthotic/Prosthetic Devices or Brace: No Gait Deviations General Gait Pattern Antalgic,Decreased Stride Length,Decreased Feet Clearance,Lateral Trunk Lean, Step-to Gait Factors Limiting Gait Function Factors Limiting Gait Function Decreased Activity Tolerance, Decreased Sensation,Decreased Strength,Difficulty Following Directions,Incoordination,Poor Balance,Poor Safety Awareness M5 PT-IP Objective Assessments Start: 05/16/20 12:04 Freq: NEEDED Status: Active Protocol: Document 05/16/20 10:29 AB (Rec: 05/16/20 12:14 AB [email or web address]) Orientation Orientation/Cognition Level of Alertness Confusional State Orientation Name,Place Language Function Ability Expressive Aphasia,Receptive Aphasia Safety Awareness Decreased Safety Awareness Memory Description Short Term Impaired,Emergency Medicine Specialist Impaired Gross Range of Motion Lower Extremity ROM Assessment Within Functional Limits Strength Lower Extremity Strength Assessment Right Impaired Hip 3+/5 Knee 3+/5 Coordination Assessment Gross Coordination Gross Coordination Impaired Sensation Assessment Sensation Gross Sensation Right LE Impaired Light Touch Impaired Proprioception (Position) Impaired Sensation Description Numbness M6 PT-IP Treatment Start: 05/16/20 12:04 Freq: NEEDED Status: Active Protocol: Document 05/16/20 13:55 AB (Rec: 05/16/20 14:57 AB [id number]) Physical Therapy Treatment Education Education Provided Safety M7 PT-IP Assessment and Plan Start: 05/16/20 12:04 Freq: NEEDED Status: Active Protocol: Document 05/16/20 13:55 AB (Rec: 05/16/20 14:57 AB [id number]) PT Summary Assessment and Plan Potential Rehabilitation Potential Good Summary Impairments Strength,Balance,Coordination, Sensation,Tone,Cognition,Bed Mobility,Transfers,Gait, Activity Tolerance Progress Towards Goals Slow Progress due to Medical Issues,Slow Progress - Other Assessment Summary pt continues to require max A with all tasks and is impulsive and decrease safety awareness. pt will benefit from SNF rehab to improve strength and mobility. Goals Bed Mobility Goal Standby Assistance Transfer Goal Standby Assistance,Front Wheeled Walker Gait Goal Standby Assistance,Front Wheel Walker Gait Distance 50 Other Goals up/down 12 steps B rails min A Days to Meet Goals 10 Frequency of Treatment Frequency Of Treatment Twice a Day Treatment Plan Physical Therapy Treatment Plan Bed Mobility Training,Transfer Training,Gait Training, Therapeutic Exercise,Balance Retraining,Post Op Education, Discharge Planning,Hot or Cold Pack,Neuromuscular Re-ed, Coordination Retraining,Manual Therapy Recommendations To Nursing Amount of Assist Needed 2 Person Assist Discharge Recommendations PT Discharge Recommendations SNF Rehab Transportation Needs at Discharge Wheelchair/Cabulance
--- NOTE | 2020-05-16 14:01 | P.PN_ITS ---
Subjective Subjective Date Patient Seen: 05/16/20 Interval history: Patient is an 80-year-old male with history of coronary artery disease, CABG x3 vessels about 8 years ago, hypertension, hyperlipidemia admitted due to acute CVA. 1. Acute left parietal CVA, present on admission, active -patient presenting with new onset severe aphasia, right facial droop, not candidate for tPA, subsequently has developed moderate weakness in right upper and lower extremity -head CT no acute findings, CT a with complete occlusion left ICA and 80% occluded right ICA, per stroke neurologist ICA occlusions are not likely etiology for his stroke -EKG sinus rhythm -received aspirin, add clopidogrel in a.m. to ASA 81 mg q.d. (was on 325 mg at home) -allow permissive hypertension -NS at 125 cc/hour while NPO -neuro check q.4 hours -telemetry: NSR -brain MRI: Acute cortical infarction involving posterior and posteromedial left parietal lobe, no mass effect, chronic small-vessel ischemic disease -echo: Small hyperdynamic LV LVEF 75-80%, normal RV, no significant valvular disease -NPO until speech eval -PT/OT/ST consult 2. Bilateral carotid artery occlusion -as noted on CTA he has complete occlusion left ICA and 80% occlusion right ICA, for stroke neurologist was not thought to require urgent intervention -outpatient vascular surgery follow-up for carotid artery stenosis 3. Acute leukocytosis present on admission, active -likely stress-related demargination versus infection, patient is afebrile and has not had a cough -chest x-ray reported as minimal streaky left lung infiltrate likely atelectasis or scar, appears similar to prior years x-rays -urinalysis normal -repeat WBC 22.1 but absolute neutrophils are way down to near normal -repeat CBC in a.m. 3. Hyperlipidemia -LDL 75 -continue rosuvastatin 20 mg q.d. 4. Essential hypertension -currently not on home meds, per last visit note on 05/07/[address] Weston patient has not been taking his chlorthalidone or metoprolol tartrate 5. Status post bilateral inguinal hernia repair 05/14/2020 -surgical sites without sign of infection, stroke is not related to recent surgery 6. History of depression -continue sertraline 50 mg q.d. Admitted to inpatient service Code status: Full code DVT prophylaxis: Enoxaparin Surrogate decision maker: Spouse Exam Vital Signs (past 8 hours): - 05/16/20 08:00 05/16/20 08:13 05/16/20 08:37 Temperature 98.5 F Pulse Rate 107 H 102 H Respiratory Rate 21 22 Blood Pressure 134/60 Pulse Oximetry 97 97 97 05/16/20 12:00 Temperature 98.9 F Pulse Rate 102 H Respiratory Rate 19 Blood Pressure 147/102 H Pulse Oximetry 97 Oxygen Delivery Method Room Air Oxygen Flow Rate 0 Objective Labs Result Diagrams: 05/16/20 04:40 05/15/20 16:21 Labs: Laboratory Results - last 24 hr 05/15/20 05/15/20 05/15/20 16:09 16:21 16:21 WBC 22.1 H RBC 5.23 Hgb 15.6 Hct 45.8 MCV 87.5 MCH 29.8 MCHC 34.1 RDW 13.6 Plt Count 345 Neut % (Auto) 83.9 H Lymph % (Auto) 7.8 L [place] % (Auto) 8.0 Eos % (Auto) 0.1 L Baso % (Auto) 0.2 Neut # (Auto) 90364 H Lymph # (Auto) 1700 [place] # (Auto) 1800 H Eos # (Auto) 0 Baso # (Auto) 100 Total Counted Seg Neutrophils % Band Neutrophils % Lymphocytes % (Manual) Monocytes % (Manual) Neutrophils # (Manual) RBC Morphology PT INR APTT Sodium 130 L Potassium 3.7 Chloride 93 L Carbon Dioxide 29 BUN 36 H Creatinine 1.10 Estimated GFR > 60.0 BUN/Creatinine Ratio 32.7 H Glucose 141 H Calcium 9.6 Magnesium Total Bilirubin 0.7 AST 21 ALT 22 Alkaline Phosphatase 64 Ammonia Total Creatine Kinase CK-MB (CK-2) CK-MB (CK-2) Rel Index Troponin I Total Protein 6.7 Albumin 3.8 Globulin 2.9 Albumin/Globulin Ratio 1.3 Triglycerides Cholesterol LDL Cholesterol, Calc HDL Cholesterol Lipase Procalcitonin Urine Color Urine Appearance Urine pH Ur Specific [place] Urine Protein Urine Glucose (UA) Urine Ketones Urine Occult Blood Urine Nitrate Urine Bilirubin Urine Urobilinogen Ur Leukocyte Esterase Urine RBC Urine WBC Ur Squamous Epith Cells Urine Bacteria Ur Culture Indicated? Nasal Screen MRSA (PCR) Ethyl Alcohol SARS-CoV-2 (PCR) Negative 05/15/20 05/15/20 05/15/20 16:21 16:21 16:21 WBC RBC Hgb Hct MCV MCH MCHC RDW Plt Count Neut % (Auto) Lymph % (Auto) [place] % (Auto) Eos % (Auto) Baso % (Auto) Neut # (Auto) Lymph # (Auto) [place] # (Auto) Eos # (Auto) Baso # (Auto) Total Counted Seg Neutrophils % Band Neutrophils % Lymphocytes % (Manual) Monocytes % (Manual) Neutrophils # (Manual) RBC Morphology PT 13.1 H INR 1.1 APTT 32 Sodium Potassium Chloride Carbon Dioxide BUN Creatinine Estimated GFR BUN/Creatinine Ratio Glucose Calcium Magnesium Total Bilirubin AST ALT Alkaline Phosphatase Ammonia Total Creatine Kinase 48 L CK-MB (CK-2) TNP CK-MB (CK-2) Rel Index TNP Troponin I < 0.012 Total Protein Albumin Globulin Albumin/Globulin Ratio Triglycerides Cholesterol LDL Cholesterol, Calc HDL Cholesterol Lipase 25 Procalcitonin 0.10 Urine Color Urine Appearance Urine pH Ur Specific [place] Urine Protein Urine Glucose (UA) Urine Ketones Urine Occult Blood Urine Nitrate Urine Bilirubin Urine Urobilinogen Ur Leukocyte Esterase Urine RBC Urine WBC Ur Squamous Epith Cells Urine Bacteria Ur Culture Indicated? Nasal Screen MRSA (PCR) Ethyl Alcohol < 10 SARS-CoV-2 (PCR) 05/15/20 05/15/20 05/15/20 16:21 16:21 16:21 WBC RBC Hgb Hct MCV MCH MCHC RDW Plt Count Neut % (Auto) Lymph % (Auto) [place] % (Auto) Eos % (Auto) Baso % (Auto) Neut # (Auto) Lymph # (Auto) [place] # (Auto) Eos # (Auto) Baso # (Auto) Total Counted Seg Neutrophils % Band Neutrophils % Lymphocytes % (Manual) Monocytes % (Manual) Neutrophils # (Manual) RBC Morphology PT INR APTT Sodium Potassium Chloride Carbon Dioxide BUN Creatinine Estimated GFR BUN/Creatinine Ratio Glucose Calcium Magnesium 1.6 Total Bilirubin AST ALT Alkaline Phosphatase Ammonia < 9 L Total Creatine Kinase CK-MB (CK-2) CK-MB (CK-2) Rel Index Troponin I Total Protein Albumin Globulin Albumin/Globulin Ratio Triglycerides 78 Cholesterol 147 LDL Cholesterol, Calc 75 HDL Cholesterol 56 Lipase Procalcitonin Urine Color Urine Appearance Urine pH Ur Specific [place] Urine Protein Urine Glucose (UA) Urine Ketones Urine Occult Blood Urine Nitrate Urine Bilirubin Urine Urobilinogen Ur Leukocyte Esterase Urine RBC Urine WBC Ur Squamous Epith Cells Urine Bacteria Ur Culture Indicated? Nasal Screen MRSA (PCR) Ethyl Alcohol SARS-CoV-2 (PCR) 05/15/20 05/15/20 05/16/20 18:00 20:03 04:40 WBC 22.1 H RBC 4.80 Hgb 14.3 Hct 41.7 MCV 86.9 MCH 29.8 MCHC 34.2 RDW 13.4 Plt Count 330 Neut % (Auto) Not Reportable Lymph % (Auto) Not Reportable [place] % (Auto) Not Reportable Eos % (Auto) Not Reportable Baso % (Auto) Not Reportable Neut # (Auto) Lymph # (Auto) Not Reportable [place] # (Auto) Not Reportable Eos # (Auto) Baso # (Auto) Not Reportable Total Counted 100 Seg Neutrophils % 80.0 H Band Neutrophils % 4.0 Lymphocytes % (Manual) 7.0 L Monocytes % (Manual) 9.0 Neutrophils # (Manual) 68823 H RBC Morphology Normal morphology PT INR APTT Sodium Potassium Chloride Carbon Dioxide BUN Creatinine Estimated GFR BUN/Creatinine Ratio Glucose Calcium Magnesium Total Bilirubin AST ALT Alkaline Phosphatase Ammonia Total Creatine Kinase CK-MB (CK-2) CK-MB (CK-2) Rel Index Troponin I Total Protein Albumin Globulin Albumin/Globulin Ratio Triglycerides Cholesterol LDL Cholesterol, Calc HDL Cholesterol Lipase Procalcitonin Urine Color Yellow Urine Appearance Clear Urine pH 6.0 Ur Specific [place] 1.020 Urine Protein Negative Urine Glucose (UA) Negative Urine Ketones Negative Urine Occult Blood Negative Urine Nitrate Negative Urine Bilirubin Negative Urine Urobilinogen 0.2 Ur Leukocyte Esterase Negative Urine RBC None seen Urine WBC 0-1/hpf Ur Squamous Epith Cells 0-1 /hpf Urine Bacteria None seen Ur Culture Indicated? Cult not indicated Nasal Screen MRSA (PCR) Negative for mrsa Ethyl Alcohol SARS-CoV-2 (PCR) 05/16/20 07:29 WBC RBC Hgb Hct MCV MCH MCHC RDW Plt Count Neut % (Auto) Lymph % (Auto) [place] % (Auto) Eos % (Auto) Baso % (Auto) Neut # (Auto) Lymph # (Auto) [place] # (Auto) Eos # (Auto) Baso # (Auto) Total Counted Seg Neutrophils % Band Neutrophils % Lymphocytes % (Manual) Monocytes % (Manual) Neutrophils # (Manual) RBC Morphology PT INR APTT Sodium Potassium Chloride Carbon Dioxide BUN Creatinine Estimated GFR BUN/Creatinine Ratio Glucose Calcium Magnesium Total Bilirubin AST ALT Alkaline Phosphatase Ammonia Total Creatine Kinase CK-MB (CK-2) CK-MB (CK-2) Rel Index Troponin I Total Protein Albumin Globulin Albumin/Globulin Ratio Triglycerides Cholesterol LDL Cholesterol, Calc HDL Cholesterol Lipase Procalcitonin 0.10 Urine Color Urine Appearance Urine pH Ur Specific [place] Urine Protein Urine Glucose (UA) Urine Ketones Urine Occult Blood Urine Nitrate Urine Bilirubin Urine Urobilinogen Ur Leukocyte Esterase Urine RBC Urine WBC Ur Squamous Epith Cells Urine Bacteria Ur Culture Indicated? Nasal Screen MRSA (PCR) Ethyl Alcohol SARS-CoV-2 (PCR) PFSH Medical History Benign neoplasm of colon CAD (coronary artery disease) Chronic diastolic (congestive) heart failure Chronic kidney disease COPD (chronic obstructive pulmonary disease) Gastroesophageal reflux HTN (hypertension) Hyperlipemia Impaired fasting glucose Major depressive disorder Male erectile disorder Surgical History (Updated 05/14/20 @ 09:44 by Sandra Vallejo RN) History of cholecystectomy S/P CABG x 3 Social History household members: spouse Smoking Status: Former smoker
--- NOTE | 2020-05-16 14:15 | CM.IDA ---
Initial DCP Assessment Note Patient is an 80yo male, resident of [place]. Patient presents via EMS for code stroke, acute CVA confirmed PCP: James Weston Payer: Maria Luz LIZAMA Reviewed chart, therapies recommending SNF at this time. Met w/patient and spouse Sasha Rossi, introduced role. Patient working w/DRY HOUSE OPERATOR during this conversation. Spouse explains patient has been indp and active up until this and has been help care for her at home d/t knee problems and her lo tolerance to much activity. Spouse requests SNF stay for patient, states she cannot safely care for him/rehab him at home- spouse [facility] Placed call to September to give the referral, September will review, they are able to accept patient's [facility] MCR as long as they can secure an auth. DCP team will follow closely for coordination of DCP. PASRR for SNF completed today YAZAN Discharge Planning/Care Management CM Discharge Assessment Start: 05/16/20 14:12 Freq: Status: Active Protocol: Document 05/16/20 14:12 YAZAN (Rec: 05/16/20 14:15 YAZAN [id number]) Discharge Planning Assessment Assigned Family Mediator DIANN Rios DPCHADD/Assigned Designee Name Sasha Munroe, spouse Contact Information [phone] Advance Directives? No History Provided By Significant Other,Medical Record Prior Living Arrangements House Household Members spouse Type of transportation used prior to Drives own vehicle admit Willing to Return to Facility? Yes Independent with ADL's Yes Is patient alert and oriented? Yes Patient/Family Preference [facility] Facility Barriers to Discharge Yes Discharge Plan [facility] Facility Transportation Arrangement Facility van Referrals Initiated Halfway Additional Comment [facility]
--- NOTE | 2020-05-16 14:21 | OT.IP.EVAL ---
Past Medical History (Last Reviewed 05/15/20 @ 18:46 by Bebo Aranda DO) Benign neoplasm of colon CAD (coronary artery disease) Chronic diastolic (congestive) heart failure Chronic kidney disease COPD (chronic obstructive pulmonary disease) Gastroesophageal reflux HTN (hypertension) Hyperlipemia Impaired fasting glucose Major depressive disorder Male erectile disorder Surgical History (Last Updated 05/14/20 @ 09:44 by Sandra Vallejo RN) History of cholecystectomy S/P CABG x 3 Occupational Therapy Inpatient Evaluation/Re-Eval M1 PT/OT-IP Prior Functional Status Start: 05/16/20 15:42 Freq: NEEDED Status: Active Protocol: Document 05/16/20 13:55 [facility] (Rec: 05/16/20 16:14 [facility] [id number]) Medical Review Prior Functional Status Medical History Reviewed Yes Communication pt has aphasia and has difficulty following directions Mobility and Gait per spouse, pt is independent with all mobilities and ambulation without AD and pt is the one assisting the spouse at home for cooking and grocery shopping needs. Activities of Daily Living and IADL's Pt's states pt was completely independent with all ADl, IADl needs, and driving. Social History Household Members spouse Living Arrangements House Number of Floors (Floors) One Floor Number of Stairs To Enter/Railing? 12 steps to enter with bilateral rails Home Environment Standard Height Toilet,Tub/ Shower Home Equipment Hand Held Shower Additional Social History Comment Pt states has a fww but that it is old. M2 OT-IP Current Condition Start: 05/16/20 15:42 Freq: Status: Active Protocol: Document 05/16/20 13:55 [facility] (Rec: 05/16/20 16:14 [facility] [id number]) Occupational Therapy Current Condition Current Condition Evaluation Date 05/16/20 Treatment Diagnosis CVA Diagnosis Onset Date 05/15/20 M3 OT- IP Subjective and Pain Start: 05/16/20 15:42 Freq: Status: Active Protocol: Document 05/16/20 13:55 [facility] (Rec: 05/16/20 16:14 [facility] [id number]) OT- Subjective Occupational Therapy Visit Type Type Initial Evaluation Visit Start Time 13:55 Visit Stop Time 14:21 Total Visit Minutes 26 Occupational Therapy Visit Comments Patient Comments Pt agreeable to transfer to the [facility]. PT and OT present as pt needing extensive 2 person assist for mobility needs. Patient/Caregiver Goals Pt's agrees that pt to go to skilled rehab. OT Pain Assessment Pain When Pain Assessed At Rest Pain Present Pain Present Denied Pain M4 OT- IP ADL's Start: 05/16/20 15:42 Freq: Status: Active Protocol: Document 05/16/20 13:55 [facility] (Rec: 05/16/20 16:14 [facility] [id number]) OT [id number] Comments OT Self-Feeding Comments NOt at meal time. OT ADL-Grooming General Evaluation Grooming Ability Maximum Assistance Comments OT Grooming Comments Handed wash cloth to pt and unable to use right hand to appropriately wash his face and still needing assist for left hand for completeness. OT ADL-Oral Care Comments Oral Care Comments NOt performed. OT ADL-Dressing General Eval Lower Body Dressing Ability Maximum Assistance Areas Needing Assistance Socks OT ADL-Toileting Comments OT Toileting Comments NOt having to go at this time. OT ADL-Bathing Comments OT Bathing Comments Sponge bath more appropriate at this time. M5 OT- IP IADL's Start: 05/16/20 15:42 Freq: Status: Active Protocol: Document 05/16/20 13:55 [facility] (Rec: 05/16/20 16:14 [facility] [id number]) OT-Instrumental Activities of Daily Living Home Safety Awareness Awareness of Need for Assistance at Home Decreased Awareness Ability to Problem Solve Emergency Unable to Problem Solve Situations Home Safety Comments Pt decrease safety, impulsive, and having difficulty to follow commands at this time due to his CVA. Medication Management Medication Management Comments Pt's states prior was forgetful to take his medications. Money Management Money Management Caregiver Provides Assistance Meal Preparation Meal Preparation Comments Prior pt did the cooking and cleaning. 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 M6 OT- IP Functional Cognition Start: 05/16/20 15:42 Freq: Status: Active Protocol: Document 05/16/20 13:55 [facility] (Rec: 05/16/20 16:14 [facility] [id number]) Cognitive Factors Limiting Selfcare Function Cognitive Ability Level of Alertness Alert,Confusional State Patient Orientation Name Attention Span Ability Capable of Focused Attention, Unable to Sustain Attention Ability to Follow Commands Able to Follow One Step Commands with Increased Time, Able to Follow One Step Commands with Repetition Cognitive Comments Cognitive Assessment Comments Pt very impulsive and needing step by step commands to follow for mobility and FWW use. OT- Vision and Hearing OT- Hearing Assessment OT- Hearing Assessment WFL OT- Vision Assessment Vision Assessment Comments Pt able to track his eyes for his and therapist in the room. M7 OT- IP Mobility and Balance Start: 05/16/20 15:42 Freq: Status: Active Protocol: Document 05/16/20 13:55 [facility] (Rec: 05/16/20 16:14 [facility] [id number]) OT- Bed Mobility Assessment Supine to Sit Supine to Sit Assist Maximum Assistance,1 Person Assistance Scooting Scooting to Edge of Bed Maximum Assistance,1 Person Assistance OT-Transfer Assessment Sit to and From Stand Sit to and from Stand Maximum Assistance,1 Person Assistance Transfers Transfer Ability Maximum Assistance,1 Person Assistance,2 Person Assistance Technique Transfer Destination Bed,Bedside Commode,Chair Transfer Technique Stand Step Pivot Devices Transfer Assistive Devices Gait Belt,Front Wheeled Walker Comments Mobility Comments MAXA to help get out of bed. Pt initially needing MARIUSZ for sitting balance and then able to do with SBA. MAX A 1-2 for transfers, 2 person needed especially when pt tires and FWW tend to be too far in front of him and needing assist for his balance and guidance of FWW. OT- Balance Assessment Sitting Balance and Reactions Static Sitting Balance Ability Fair Standing Balance and Reactions Static Standing Balance Ability Poor M8 OT- IP Objective Assessments Start: 05/16/20 15:42 Freq: Status: Active Protocol: Document 05/16/20 13:55 [facility] (Rec: 05/16/20 16:14 [facility] [id number]) OT Strength Comments Strength Comments Pt at least 3+/5 throughout as able to assist for bed mobility needs. OT- Coordination Assessment Upper Extremity Finger to Nose Test Right UE Impaired OT-Muscle Tone Assessment Muscle Tone WNL Yes OT Sensation Assessment Comments Summary Comments Decreased sensation of right UE. Pt decreased ability for coordination and planning of movement for the right UE. Pt did not realize that the wash cloth was not in his right hand when trying to wash his face. In addition pt not able to properly motor plan with right hand to assist to blow his nose or wash his face. M9 OT- IP Assessment and Plan Start: 05/16/20 15:42 Freq: Status: Active Protocol: Document 05/16/20 13:55 [facility] (Rec: 05/16/20 16:14 [facility] [id number]) OT Summary Assessment and Plan Potential Rehabilitation Potential Good Analytic Complexity at Evaluation Moderate Summary OT Impairments Range of Motion,Strength, Balance,Coordination,Sensation ,Functional Cognition, Functional Mobility,Self- Feeding,Grooming,Dressing, Toileting,Bathing,Toilet Transfers,Shower Transfers, Activity Tolerance Progress Towards Goals Slow Progress due to Medical Issues,Slow Progress due to Activity Tolerance,Slow Progress due to Cognition Assessment Summary Pt MOD complexity and main barriers are steps, decreased functional smoothness of movement and motor planning for RUE, decreased functional cognition and now needing extensive 1-2 person assist for ADl and functional mobility needs. Pt will benefit from skilled rehab. Goals Self-Feeding Goal Independent Grooming Goal Independent Dressing Goal Independent Toileting Goal Independent Bathing Goal Independent Toilet Transfer Goal Independent Shower Transfer Goal Independent Days to Meet Goals 30 Frequency of Treatment Frequency Of Treatment Once a Day Treatment Plan OT Treatment Plan ADL Training,Functional Cognition Training,Functional Mobility,Patient/Family Education,Discharge Planning Other Treatment Recommendations and Next [place] [facility] [place] Treatment Focus with FWW. Grooming while seated. Discharge Recommendations OT Discharge Recommendations SNF Rehab Home Equipment Needs defer to skilled rehab Transportation Needs at Discharge Wheelchair/Cabulance
--- NOTE | 2020-05-16 15:15 | ST.IPCSEOM ---
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 Garcia Reason for Referral Stroke Protocol Setting Assessment Location Acute Care Visit Type Note Type Initial evaluation Next Note Type Next Note Type Treatment Note Patient Information Identification Type Name History Patient is an 80yo male, resident of [facility]. Patient presents via EMS for code stroke, acute CVA confirmed. MRI: Acute cortical infarction involving the posterior and posteromedial aspect of the left parietal lobe. Subjective Observations Patient seen on two occasions today. Patient seen lying in bed with eyes closed. Later patient was up in the chair. Patient's , Kathleen present in room. He awoke to my voice, but eyes remained closed for much of the session . Reported by Patient Other Symptoms Difficulty swallowing liquids, Difficulty swallowing pills, Difficulty swallowing solids, Drooling Current Diet Nothing by mouth Baseline Feeding Method Independent in self-feeding Results Patient is independent at baseline. No hx of dysphagia. states he likes tapioca pudding, tomato juice, does not like citrus juice. Objective Assessment Mental Status Lethargic Oral Integrity Excessive saliva/Drooling Dentition Lower dentures/partials Lip Function Severe impairment Observation of Lips at Rest Right sided weakness/Drooping Pucker Reduced range of motion, Reduced strength,Right sided weakness/drooping Lip Retraction Reduced range of motion,Right sided weakness/Drooping Alternating Pucker/Lip Retraction Reduced range of motion Tongue Function Moderate impairment Observations of Tongue at Rest Deviates to the left Tongue Protrusion Deviates to the left,Reduced range of motion,Reduced strength Tongue Lateralization Deviates to the left,Reduced range of motion,Reduced strength Jaw Function Moderate impairment Jaw Opening Reduced range of motion, Reduced strength Hard/Soft Palate Function Moderate impairment Observations of Hard/Soft Palate Reduced strength/ROM of soft palate elevation Phonation Hoarse,Reduced loudness Respiratory Sufficiency Within normal limits Comment Moderate-severe impairments affecting speech and swallowing. Moderate-severe dysarthria with significantly reduced intelligibility. reports patient has low, mumbled voice at baseline. Provided written and verbal education of dysarthria speaking strategies (increase volume, overarticulate) Food and Liquid Trials Position During Assessment Slightly reclined,In chair Liquids Trialed Ice chips,Thin,[place] Solids Trialed Puree Administration Type Tea spoon,Cup single sip, Controlled cup sip,Straw,Needs some assistance Oral Impairment Moderately impaired Oral Phase Comments Significant right sided weakness resulting in anterior loss of bolus and impaired bolus transport. Effective strategies trialed: reducing bolus size (teaspoon administration), increasing bolus viscosity (nectar thick liquids), placing bolus on unaffected side (teaspoon to left side of mouth). No advanced textures trialed due to oral residue/pocketing. Pharyngeal Phase Comments Suspect moderate impairment; however, unable to fully assess without instrumental assessment. MBSS to be considered in the future, but patient not able to tolerate sitting up unassisted at this time. Signs of aspiration at bedside: coughing after thin liquid sips, wet vocal quality . Symptoms decreased with trials of nectar thick liquids . Patient with weak throat clear and cough. Unable to initiate volitional swallow. Fatigue/Endurance Moderate fatigue Strategies Attempted Effortful swallow Findings Swallowing Function Oropharyngeal phase dysphagia Severity of Swallow Impairment Moderately impaired Contributing Factors to Swallow Reduced alertness or attention Impairment ,Reduced oral strength/ coordination/sensation, Mastication inefficiency, Impaired oral-pharyngeal transport,Impaired airway protection Prognosis Good Based on Cognitive status,Family support Recommendations Swallowing Treatment Yes Recommended Solids Puree Recommended Liquids [place] Other Recommendations Provided patient and with written education on dysphagia, aspiration, importance of oral hygiene in reducing risk of aspiration pneumonia, oral strengthening exercises, and dysarthria speaking strategies. Safety Precautions/Swallowing To be fed only by trained Recommendations staff/family,Feed only when alert,Reduce distractions, Remain upright (90 degrees) during all oral intake,Needs verbal cues to use recommended strategies,Small bites and sips when eating,Slow rate; swallow between bites,No straw ,Multiple swallows,Alternate liquids and solids,Strict oral care after intake,Check for pocketing Medication Recommendations Crushed in Carrier Discharge Recommendations longterm facility Education Patient/Caregiver Education Described results of evaluation,Family/caregivers expressed understanding of evaluation,Family/caregivers expressed agreement with goals & treatment plans,Patient requires further education/ training,Family/caregivers require further education/ training Goals Short-term Goals 1. Gale will perform oral strengthening exercises daily in order to improve lip closure, tongue control and bolus transport and to decrease oral residue. 2. Gale will safely consume a nectar thick liquids, puree texture diet in order to maintain hydration/nutrition. 3. Gale will implement dysarthria speaking strategies in order to improve speech intelligibility and improve communicative effectiveness.
--- NOTE | 2020-05-16 16:02 | DI.RAD.S_ITS ---
PROCEDURE: XR CHEST 1V INDICATIONS: hemoptysis TECHNIQUE: One view of the chest was acquired. COMPARISON: [facility], CR, XR CHEST 1V, 05/15/2020, 18:01. [facility], CR, XR CHEST 1V, 05/16/2020, 6:15. FINDINGS: Surgical changes and devices: Remote CABG.. Lungs and pleura: Lungs are clear. No pleural effusions or pneumothorax. Mediastinum: Mediastinal contours appear normal. Heart size is normal. Bones and chest wall: No suspicious bony lesions. Overlying soft tissues appear unremarkable. IMPRESSION: No evidence acute pulmonary process. Dictated by: Tyler Trujillo M.D. on 05/16/2020 at 16:41 Approved by: Tyler Trujillo M.D. on 05/16/2020 at 16:42
--- NOTE | 2020-05-16 17:25 | DI.CT.S_ITS ---
PROCEDURE: CT ANGIO CHEST PE PROTOCOL INDICATIONS: Shortness of breath, hemoptysis, on vent TECHNIQUE: After the administration of intravenous contrast, 2 mm thick sections acquired from the pulmonary apices to the posterior costophrenic angles. 3-dimensional maximum intensity projection (MIP) coronal and sagittal reformats were then acquired through the thorax. For radiation dose reduction, the following was used: automated exposure control, adjustment of mA and/or kV according to patient size. COMPARISON: [facility], CT, CT ABDOMEN PELVIS W CON, 05/17/2020, 0:48. [facility], CR, XR CHEST 1V, 05/16/2020, 18:13. FINDINGS: Image quality: Excellent. Pulmonary arteries: Pulmonary arteries are normal in size, and demonstrate no intraluminal filling defects to suggest central pulmonary embolism. Lungs and pleura: Endotracheal tube in the lower trachea approximately 2.9 cm above the spike. There is trace secretions at the level of the endotracheal tube. Mild patchy ground-glass opacity in the inferior right upper lobe, right middle lobe, and right lower lobe, and left lower lobe. Overall mild to moderate severity. There is a nodular opacity at the right lung base measuring 1.5 x 1.5 cm, (5/193). Suspect trace right pleural effusion. There are a few small calcified pleural plaques bilaterally. Mediastinum: Post median sternotomy and CABG. Heart size is at the upper limits of normal, without pericardial effusion. No mediastinal or hilar adenopathy. Thoracic aorta is normal in caliber and enhancement. Moderate plaque in the brachiocephalic artery. Mild calcified plaque in the aortic arch. There is apparent thickening of the distal esophagus. small hiatal hernia. Enteric tube coursing into the proximal stomach. The side port is just distal to the gastroesophageal junction. Bones and chest wall: No suspicious bony lesions. Ribs and thoracic spine appear intact throughout. Thyroid gland is unremarkable. No axillary or supraclavicular adenopathy. Abdomen: Please see separately dictated same day CT abdomen and pelvis. IMPRESSION: 1. No pulmonary embolism. 2. Patchy bilateral airspace opacities. Suspect infectious/inflammatory etiology. Aspiration could have a similar appearance. 3. Nodular opacity at the right lung base measuring 1.5 cm is suspicious for a pulmonary nodule. -Comparison with prior cross-sectional imaging of the lung base if available would be helpful. -Recommend follow-up CT chest in approximately 3 months. 4. Mild calcified pleural plaques. This is most suggestive a prior asbestos exposure. 5. Distal esophagus appears mildly thickened. Small hiatal hernia. No significant discrepancy with the overnight preliminary interpretation. Additional recommendation for follow-up CT of the chest for possible pulmonary nodule at the right lung base. Dictated by: Joey Gramajo M.D. on 05/17/2020 at 8:23 Approved by: Joey Gramajo M.D. on 05/17/2020 at 8:38
[2020-05-16] MEDS: FUROSEMIDE 40 MG/4 ML VIAL 80 MG IV (17:41)
[2020-05-16] MEDS: MORPHINE 2 MG/ML INJ IV (17:54)
[2020-05-16] MEDS: MORPHINE 2 MG/ML INJ (17:55)
[2020-05-16] MEDS: SUCCINYLCHOLINE 200 MG/10 ML VIAL 100 MG IV (18:07)
[2020-05-16] MEDS: ETOMIDATE 2 MG/ML 10 ML VIAL 20 MG IV (18:09)
[2020-05-16] MEDS: propofoL 1,000 MG/100 ML VIAL 0.4 MG IV (18:20)
--- NOTE | 2020-05-16 18:28 | PM.PROC.1 ---
Procedures Date/Time Date of procedure: 05/16/20 Time of procedure: 18:15 Intubation Time out performed: Yes Sedative: etomidate Mg given: 20 Paralytic: succinylcholine Mg given: 100 Laryngoscope: fiber optic video scope Assist device used: Bougie ET tube size: 7.5 ET tube uncuffed: Yes Tube secured depth (cm): 23 Tube secured location: lips Tube placement confirmation: visualized tube passing through cords, equal breath sounds bilaterally and confirmation by capnometry Patient tolerated procedure: well Intubation complications: none Additional comments: Intubation request of hospitalist, patient had respiratory failure with hemoptysis. No adverse reactions. Intubation required immediate action. Family at bedside and I did speak with family and they did understand indication for intubation. Patient is full code. Post procedure x-ray reviewed. ET tube placed, tip above the spike
--- NOTE | 2020-05-16 18:37 | RT ---
RECEIVED VERBAL ORDER FROM DR. MARTE FOR RT PROTOCOL FOR VENT MANAGEMENT.
[2020-05-16] MEDS: ALBUTEROL 2.5 MG/3 ML NEB (ADULT) INH (19:00)
[2020-05-16] MEDS: SODIUM CHLORIDE 0.9% 500 ML 1000 ML IV ×3 (19:30→23:45)
[2020-05-16 19:31] LABS: Add Manual Diff / Slide Review NO; Basophils Absolute Auto 100 /uL (0-100); Basophils Percent Auto 0.2 % (0-2); Eosinophils Absolute Auto 0 /uL (0-450); Hematocrit 34.2 % (41-53); Hemoglobin 11.6 g/dL (13.5-17.5); Lymphocytes Absolute Auto 1200 /uL (1100-4500); Lymphocytes Percent Auto 5.7 % (25-40); Mean Corpuscular Hemoglobin 29.8 PG (26-34); Mean Corpuscular Volume 87.6 fL (80-100); Monocytes Absolute Auto 1500 /uL (0-900); Neutrophils Absolute Auto 18300 /uL (1500-7000); Neutrophils Percent Auto 87.1 % (50-75); Platelet Count 347 X10^3/uL (150-400); Red Cell Distribution Width 13.4 % (11.6-14.8)
[2020-05-16] MEDS: SODIUM CHLORIDE 0.9% 1,000 ML 150 ML IV (19:40)
[2020-05-16] MEDS: HYDROMORPHONE 0.5 MG INJ (19:40)
[2020-05-16] MEDS: fentaNYL 1,000 MCG in DEXTROSE 5% IN WATER 250 ML 13.4 ML IV (19:43)
[2020-05-16 19:44] LABS: BUN Creatinine Ratio 42.6 (6-22); Blood Urea Nitrogen 52 mg/dL (9-20); Calcium 8.1 mg/dL (8.4-10.2); Carbon Dioxide 22 mmol/L (22-32); Chloride 105 mmol/L (98-107); Glucose 216 mg/dL (80-110); HEMOLYSIS < 15 (0-50); Potassium 3.5 mmol/L (3.4-5.1); Sodium 134 mmol/L (137-145)
--- NOTE | 2020-05-16 19:47 | DI.CT.S_ITS ---
PROCEDURE: CT ABDOMEN PELVIS W CON INDICATIONS: GI bleed TECHNIQUE: After the administration of intravenous contrast, 5 mm thick sections acquired from the diaphragm to the symphysis. 5 mm coronal and sagittal reformats were acquired. For radiation dose reduction, the following was used: automated exposure control, adjustment of mA and/or kV according to patient size. COMPARISON: [facility], CT, CT ANGIO CHEST PE PROTOCOL, 05/17/2020, 0:48. FINDINGS: Image quality: Excellent. ABDOMEN: Lung bases: Please see separately dictated same day CT pulmonary angiogram. Solid organs: Liver is normal in size. No focal lesion. Gallbladder is surgically absent. Biliary system is non dilated. Pancreas enhances normally. Spleen is normal in size and enhancement. No adrenal nodules. Kidneys demonstrate normal size and enhancement, without hydronephrosis. Peritoneum and bowel: Small hiatal hernia. Enteric tube in the proximal stomach. Duodenal diverticulum. No small bowel obstruction. Somewhat prominent stool in the rectum. Mild colon diverticulosis. There is inflammatory change adjacent to the sigmoid colon in the left lower quadrant, (13/29). There are several small foci of extraluminal gas and possible small fluid collection measuring at 2.9 x 2.8 cm, (11/66). Small foci of gas are seen extending into the left inguinal canal. The additionally there is subcutaneous gas in the mons pubis and right rectus musculature. The appendix is normal. No free fluid or air. Nodes and vessels: No retroperitoneal or mesenteric adenopathy by size criteria. Infrarenal abdominal aortic aneurysm measuring 3.9 cm, (13/35). Extensive circumferential calcified atherosclerotic plaque. Miscellaneous: A small amount of fluid density near the umbilicus with adjacent focus of gas. No significant hernia. Mild stranding in the mesenteric fat deep to the umbilicus. PELVIS: Genitourinary: Bladder is mostly decompressed with a Salazar catheter. There may be debris or thickening along the right bladder wall. Miscellaneous: No inguinal hernias or adenopathy. Bones: No suspicious bony lesions. No vertebral body compression fractures. IMPRESSION: 1. Moderate inflammatory change in the left lower quadrant adjacent to the sigmoid colon. Possible small fluid collection with extraluminal gas measuring 2.9 cm. This could be the sequelae of recent surgery. Diverticulitis could also have this appearance. 2. There is a subcutaneous gas in the left groin, mons pubis, right rectus musculature and umbilicus. This is most likely due to recent surgery. Cellulitis or other infectious process could have a similar appearance. 3. Infrarenal abdominal aortic aneurysm measuring 3.9 cm. No significant discrepancy with the overnight preliminary report. Dictated by: Joey Gramajo M.D. on 05/17/2020 at 8:43 Approved by: Joey Gramajo M.D. on 05/17/2020 at 8:57
[2020-05-16 19:52] LABS: Fibrinogen 440 mg/dL (211-428); INR 1.2 (0.9-1.3); Prothrombin Time 14.4 SECONDS (10.1-12.7)
[2020-05-16 19:54] LABS: PTT Partial Thromboplastin Tim 31 SECONDS (26.4-36.2)
[2020-05-16 20:09] LABS: D Dimer 1729 ng/mL (<230)
[2020-05-16] MEDS: METOPROLOL TARTRATE 5 MG/5 ML INJ IV ×3 (20:30→20:40)
[2020-05-16 20:37] LABS: HCO3 ABG 19 mmol/L (22-26); Oxygen Saturation ABG 99 % (95-100); PCO2 ABG 27.6 mmHg (35-45); PO2 ABG 120 mmHg (80-100); TCO2 ABG 20 mmol/L (21-31); pH ABG 7.45 (7.35-7.45)
[2020-05-16 20:38] LABS: Fractionated Inspired Oxygen 50
[2020-05-16] MEDS: POTASSIUM CHLORIDE 40 MEQ in SODIUM CHLORIDE 0.9% 500 ML 130 ML IV (20:48)
[2020-05-16 21:36] LABS: Magnesium 1.7 mg/dL (1.6-2.3)
--- NOTE | 2020-05-16 22:10 | PM.EVENT ---
Event Note Date Patient Seen: 05/16/20 Time Patient Seen: 19:32 Event Note: Report is received and plan of care discussed with Dr. Garcia, additional lab studies ordered as well as plan for chest CT to rule out pulmonary embolism in addition to scan of the abdomen and pelvis related to persistent elevated WBCs at 22.1 and rectal bleeding. The patient is seen and assessed. Patient is intubated on ventilatory support restless and agitated on propofol 60 mcg/kg/min. Patient continued to have dark blood blood section through the orogastric tube and small amount of blood being suctioned from the endotracheal tube. Patient is tachypneic or breathing the backup rate of the ventilator with an end-tidal CO2 reading between 20 and 28 and SpO2 in the high 90s to 100. -hydromorphone 0.5 mg ordered IV x1 pending initiation of fentanyl infusion. -patient tachycardic ordered 500 cc normal saline bolus with improvement in heart rate and blood pressure -ordered potassium chloride 40 mEq IV x1 now. 05/16/2020 at 2: The patient has a rhythm change to atrial fibrillation with RVR up to 213 beats per minute. The patient has a blood pressure dropping into the 80s with a MAP of 59. Boluses and potassium are infusing. Unable to proceed with CT due to patient instability. -ordered metoprolol 5 mg IV to decrease heart rate with improvement in blood pressure to 99 systolic. -mechanical facilities technician is here for PICC line insertion for list tablets she a midline catheter our catheterization to allow for contrast infusion for chest CT rule out PE. -repeat saline bolus and blood pressure is labile but responding to bolus. -ABG is obtained finding a pH of 7.45, pCO2 27.6, PO2 of 120, bicarb of 19 with a base deficit of 5.0 -Coagulation studies find PT of 14.4, INR of 1.2, PTT of 31. Fibrinogen is mildly elevated for 40 and D-dimer markedly elevated at 17 29. 05/16/2020 at 2200: Patient continues in atrial fibrillation with RVR with apparent vasomotor instability. At approximately 9:15 p.m. patient loses pulse without rhythm change. Code blue was called with spontaneous return [place] without further intervention. -2 units of blood has been ordered for stat transfusion with request blood bank to keep 2 units ahead. -will recheck H&H following transfusion estimated to be 2300. -patient is noted have elevated temperature 100.3? with transfusion with continued labile blood pressure. Patient has adequate urinary output at approximately 35 cc/hour and improving without hematuria. Consideration is given to transfusion reaction but patient has previously had elevated temperature and now becoming adequately hydrated is manifesting increased temperature. -with elevated temperature considerations given to possible sepsis with associated hypertension compound by relative dehydration, bleeding with drop of hemoglobin by 2.5 g and elevated white count. -ordered lactic acid and procalcitonin to further evaluate for sepsis with no identified source as well as patient has penicillin allergy complicating antibiotic choice. -ordered meropenem 1 g every IV 8 hours. Will monitor renal function. 05/16/2020 at 2340. The patient remains in atrial fibrillation rate variable between 120s and 150s. The 3rd unit of blood transfusing, updated labs are pending. Patient continues to be producing adequate urine that is clear without hematuria. Blood pressure is in the upper 80s to low 90s maintaining a MAP greater than 60. -Continue normal saline 200 cc/hour -continue sedation with propofol and fentanyl drips. -magnesium is 1.7 ordered magnesium 1 g IV x1 now. Goal for electrolytes is magnesium greater than 2.08 and potassium greater than 4.0. -lactate is and to be 2.9 an additional 500 cc boluse of normal saline ordered. 05/17/2020 at 12:20 a.m. Beginning transfusion of 4th unit and patient's heart rate is improving into the 120s to 130s and blood pressure stabilizing. Reviewed laboratory results the patient does have an elevated troponin at 0.159. This may be related to demand ischemia or troponin leak related to either anemia and/or hypotension however may be reflective also of possible RV strain secondary to PE. Will per proceeding to CT for chest abdomen pelvis CT rule out PE. -ordered 12 lead EKG to evaluate for elevated troponin reveals atrial fibrillation with RVR with no significant ST or T-wave changes. 05/17/2020 at 02:30 The patient has been stabilized maintaining an adequate blood pressure with heart rate between [id number]. Patient has taken to CT and tolerated the transport without incident. Upon return is maintaining an adequate blood pressure and a stable heart rate with good urine output averaging approximately 100-150 cc/hour. 05/17/2020 at 5:20 a.m. On morning labs the patient H&H has improved as has his white count down to 18.5. His potassium is low at 3.5 ordered 60 mEq of potassium chloride. Of note the patient's troponin is re-evaluated and found to be 0.861. -place called Cardiology, spoke with Dr. Meadows, review the patient's case presentation, arrhythmia and laboratory findings. He recommends starting amiodarone infusion. -ordered amnio infusion with loading dose to be over 20 minutes to minimize hypotension. -calcium is 6.7 and corrects to 7.0 based on most recent albumin, ordered calcium gluconate 2 g IV now. -added proBNP to labs.
[2020-05-16] MEDS: PANTOPRAZOLE 40 MG VIAL IV (22:25)
[2020-05-16] MEDS: SODIUM CHLORIDE 0.9% 1,000 ML 200 ML IV (22:50)
--- NOTE | 2020-05-16 23:23 | PC.NURSE ---
Evening shift note: Pt sitting up in bed with at bedside, NIH 5, waxing and waning. Pt able to make needs known, asks for urinal, states he is fine when asked. 1600 Notified by MARGARINE CHURN OPERATOR that pt having hemoptysis, suction used as pt sounded gurgley, edy red blood suctioned, notified Dr Garcia. 1604 Provider at bedside, O2 sats dropping (see vitals), RT consulted, agreed that pt should be intubated, called Charge nurse to arrange will continue to monitor closely while waiting for staff to gather. 1747 Dr Garcia, RT x3, float nurse Joellen, crash cart available with ICU nurses (ramila nurse and Ritu-Ritu) Pt placed on a non-rebreather sats 86-88%, BP 169/77, RR 40 HR 135 175 Charge nurse Kristie states that anesthesia on way, Dr Medrano 175 Oral suction by RT 175 2 mg morphine administered, 85% O2 on non rebreather 175 RT Сергей bagging pt, Propofol gtt prepared, intubation kit waiting 175 91% manual ventilation, HR 143 RR 37 1759 BP right arm 208/97 JR 140 RR 39 O2 93% Melena stool observed by this nurse and Dr Garcia 180 Dr Medrano 5 minutes out, DROP FORGE OPERATOR's and Dr Antunez arrive at bedside 1806 Etomidate and Succinylocholine drawn up by Cemaria eugenia-Ritu per Dr Antunez 180 Begin intubation 10mg of Etomidate in LFA IV 1809 10mg Etomidate in LFA IV, Dr Medrano arrives 1810 100mg Succ in LFA IV, HR 134 O2 78% manual ventilation, oral suctioning edy blood. Intubation tube size 7.5, 26 at teeth, called for CXR 1811 98% manual ventilation BP 142/76, HR 136 RR 34 1816 CXR completed and reviewed by Dr Garcia 1818 Wrist restraints placed, ventilation/ventilator managed by RT Сергей Calix and this nurse 1819 Propofol gtt initiated, HR 123 BP 142/76 O2 98% RR 43 1824 Flushed oral NG, PICC line ordered 1855 Salazar inserted, 16 coude Vent settings FiO2 50% PEEP 8, RR 15 Tidal volume 470 2021 Pt converted to AFib RVR, provider Wes Stern at bedside 2100 Code blue called due to no blood pressure, bolus of 500ml given, BP 152/88 HR 172 2106 BP 120/68 HR 170, Code cancelled by Wes Stern 2114 First unit of PRBC started, slight elevation of temperature note to 100.7, provider notified and indicated to continue with transfusions, see TAR for documentation. 2299 Report given to mary barriga shift nurse Trice, no further patient contact at this time
[2020-05-16 23:33] LABS: Lactate (Lactic Acid) 2.9 mmol/L (0.7-2.1)
[2020-05-16] MEDS: propofoL 1,000 MG/100 ML VIAL 4.254 MG IV (23:33)
[2020-05-17] VITALS (91 sets, daily range): BP systolic 70–130; BP diastolic 46–69; PULSE 23–159; RESP 15–23; TEMP 36.4–37.1; O2SAT 79–100
[2020-05-17 00:10] LABS: Procalcitonin 0.25 ng/mL (<0.5)
[2020-05-17 00:12] LABS: Troponin I 0.159 ng/mL (0.01-0.034)
[2020-05-17] MEDS: MEROPENEM 1 GM in SODIUM CHLORIDE 0.9% 100 ML 200 ML IV ×2 (00:40→09:48)
[2020-05-17 01:16] LABS: Reflexed Lactate in 2 Hours Y
[2020-05-17 02:00] LABS: Hematocrit 37.1 % (41-53); Hemoglobin 12.3 g/dL (13.5-17.5)
[2020-05-17] MEDS: MAGNESIUM SULFATE 1 GM in DEXTROSE 5 % IN WATER 100 ML 102 ML IV (02:00)
[2020-05-17 02:06] LABS: Lactate 2HR (Lactic Acid Rflx) 2.2 mmol/L (0.7-2.1)
[2020-05-17 04:14] LABS: Add Manual Diff / Slide Review NO; Basophils Absolute Auto 100 /uL (0-100); Basophils Percent Auto 0.5 % (0-2); Eosinophils Absolute Auto 0 /uL (0-450); Eosinophils Percent Auto 0.1 % (2-4); Hematocrit 38.7 % (41-53); Hemoglobin 13.2 g/dL (13.5-17.5); Lymphocytes Absolute Auto 1500 /uL (1100-4500); Lymphocytes Percent Auto 8.2 % (25-40); Mean Corpuscular Hemoglobin 29.2 PG (26-34); Mean Corpuscular Volume 85.7 fL (80-100); Monocytes Absolute Auto 1400 /uL (0-900); Monocytes Percent Auto 7.7 % (3-14); Neutrophils Absolute Auto 15500 /uL (1500-7000); Neutrophils Percent Auto 83.5 % (50-75); Platelet Count 206 X10^3/uL (150-400); Red Blood Cell Count 4.52 X10^6/uL (4.5-5.9); Red Cell Distribution Width 14.4 % (11.6-14.8); White Blood Cell Count 18.5 X10^3/uL (4.5-11.0)
[2020-05-17 04:20] LABS: BUN Creatinine Ratio 44.9 (6-22); Blood Urea Nitrogen 57 mg/dL (9-20); Carbon Dioxide 23 mmol/L (22-32); Chloride 110 mmol/L (98-107); Estimated Glomerular Filt Rate 54.4 mL/min (>60); Glucose 142 mg/dL (80-110); HEMOLYSIS < 15 (0-50); Potassium 3.5 mmol/L (3.4-5.1); Sodium 136 mmol/L (137-145)
[2020-05-17 04:33] LABS: Calcium 6.9 mg/dL (8.4-10.2)
[2020-05-17 04:35] LABS: Troponin I 0.862 ng/mL (0.01-0.034)
[2020-05-17] MEDS: SODIUM CHLORIDE 0.9% 500 ML 1000 ML IV ×2 (04:38→05:40)
[2020-05-17] MEDS: SODIUM CHLORIDE 0.9% 1,000 ML 200 ML IV (04:39)
--- NOTE | 2020-05-17 04:59 | PC.NURSE ---
Addendum entered by Trice Diez R.N. 05/17/20 06:50: 0600- Patient converted to NSR. Amiodarone loading dose aborted. Levophed gtt started per order to achieve a mean of 60. Lungs have increasing coarseness, BNP 2670 CHIEF JUVENILE PROBATION OFFICER Jarred aware. Will monitor closely. Original Note: 0400- Patient cleaned up and given mouth care. Patient had a small tarry stool. Patient noted to have blood in his mouth and was suctioned for fresh looking blood and when turned to his side for aranza care he had bloody drainage from his mouth. Patient remains in AFIb/RVR. rate is mostly below 120. BP remains soft but mean is at 60. Patient is making good urine that is clear. Soft wrist restraint x1 left wrist. Patient right arm is not moved by him after his recent CVA. Patient triponins are trending up indicating a non-stemi. Patient will squeeze your hand when requested. Propofol gtt is at 15 carolyn/kg/min. Fentanyl gtt is at .9 carolyn/kg/hr. IVF infusing at 200cc/hr. Patient has required two 500cc NS bolus this shift as well as 4 unit PRBC.
[2020-05-17 05:08] LABS: PCO2 ABG 29.7 mmHg (35-45); PO2 ABG 93 mmHg (80-100)
[2020-05-17 05:09] LABS: Fractionated Inspired Oxygen 50; HCO3 ABG 18 mmol/L (22-26); Oxygen Saturation ABG 97 % (95-100); TCO2 ABG 19 mmol/L (21-31)
[2020-05-17] MEDS: AMIODARONE 150 MG/100 ML PIGGYBACK 300 MG IV (05:41)
[2020-05-17] MEDS: NOREPINEPHRINE 4 MG in DEXTROSE 5% IN WATER 250 ML 19.05 ML IV (06:08)
[2020-05-17 06:09] LABS: NT-proBNP (BNP-Adult 18+) 2670 pg/mL (<450)
[2020-05-17] MEDS: CALCIUM GLUCONATE 9.3 MEQ in SODIUM CHLORIDE 0.9% 50 ML 140 ML IV (06:26)
[2020-05-17] MEDS: POTASSIUM CHLORIDE 30 MEQ in SODIUM CHLORIDE 0.9% 250 ML 88.333 ML IV (06:54)
[2020-05-17] MEDS: PANTOPRAZOLE 40 MG VIAL IV ×2 (08:24→20:54)
--- NOTE | 2020-05-17 09:22 | PT-IP ANOTE ---
reviewed EMR and pt was intubated last night. checked with ICU nurse and informed that pt is on hold for today and to check back tomorrow. asked if they want to have PT check in the afternoon and stated that tomorrow will be better. pt not appropriate for PT today. will f/u tomorrow.
--- NOTE | 2020-05-17 09:28 | OT.IPNOTE ---
Pt intubated late 05/16/20. Pt is not appropriate for therapy services on this date. Will hold and continue to follow up tomorrow.
--- NOTE | 2020-05-17 09:34 | SLP.IPNOTE ---
REviewed chart and spoke to nursing. Pt was intubated last night. ST on hold pending pt recovery.
--- NOTE | 2020-05-17 10:03 | PC.NURSE ---
Addendum entered by Gilda Medel R.N. 05/17/20 15:24: Pt remains with RASS -2 to -3, remains at bedside and reports given to Kaitlin for PM shift. Addendum entered by Gilda Medel R.N. 05/17/20 14:40: Bp has remained stable off Levophed. 116/56 P 63. Addendum entered by Gilda Medel R.N. 05/17/20 12:37: Family, and daughters via [facility], have elected to keep patient here. Able to turn off Levophed at 1215pm. BP stable 110/54 MAP 77. Addendum entered by Gilda Medel R.N. 05/17/20 11:01: Add- Propofol dose 12mcg/kg/min. K riders running. BP remains soft, Titrating Levophed for Map > 60. Salazar with good UOP. Slight hematuria noted. Fentanyl at 0.8mcg/kg/hr. RASS -3. R side noted to be flaccid,no purposeful movement , and per report this has been the case. Oral care has decreased edy bleeding noted. Blood gas obtained, adjustments to vent, per RT. Pt comfortable with turning, and repositioning. , at bedside, update provided from Dr Cortez. Original Note: AM shift Assumed care of Pt, remains vented with ETT @ 23 at lips. Vent settings 50% Fio2, PEEP 8, Rate 15, TV 470. Lungs remain coarse, NS reduced to 125mls/hr. Spo2 99%. Levophed reduced to 2mcg/min, Propofol reduced to 12 mcg/
--- NOTE | 2020-05-17 10:20 | DIET.PN ---
Dietary Progress Note Assessment: Mr. Munroe is an 80y M admitted for stroke referred to nutrition for NPO on vent status. Patient with history of coronary artery disease, CABG x3 vessels about 8 years ago, hypertension, hyperlipidemia brought to emergency department due to acute change in neurological status. Patient's clinical situation has worsened with labored breathing, decreased respiratory rate, drop in O2 sats. He is now intubated and on vent . Concentrated TF formula to be used to support fluid balance. HT: 165.1cm WT: 70.9kg BMI: 26.2 Labs: MAP >60, lactate 2.2, pCO2 29.7, Gluc 142, Na 136, Chl 110 MNA: 12 normal nutrition Nutrition Diagnosis: Inadequate protein energy intake r/t NPO on vent status. Interventions: Recc continuous feeding of Glucerna 1.5 using ASPEN ICU protocol starting at 15mL/hr for first 24h c 300mL water flushes q4h. After first 24h, titrate up by 15-20mL/h q8h as tolerated until reaching goal rate of 45mL/h. HOB elevated during feedings. Goal feeding provides 1620kcal (23kcal/kg), 89g PRO (1.3g/kg), 820mL feed water and 1800mL free water flushes (total 37mL/kg) Diet Order: NPO, tube feed EER: 1630kcal (23kcal/kg), 91g PRO (1.3g/kg elder + vent), 2.1 L fluids Monitoring/Evaluations: formula tolerance, transition to POs once extubated.
--- NOTE | 2020-05-17 10:25 | CM.DPC ---
DCP/continued: Reviewed chart. Spoke with provider/Dr. Cortez in AM rounds. He reports that patient currently intubated and that he will attempt to transfer this patient to higher level of care today. P: Transfer DIANN Moran
[2020-05-17 10:32] LABS: Fractionated Inspired Oxygen 30; HCO3 ABG 18 mmol/L (22-26); Oxygen Saturation ABG 96 % (95-100); PO2 ABG 77 mmHg (80-100); TCO2 ABG 18 mmol/L (21-31); pH ABG 7.42 (7.35-7.45)
[2020-05-17 10:49] LABS: Troponin I 0.921 ng/mL (0.01-0.034)
[2020-05-17] MEDS: POTASSIUM CHLORIDE 30 MEQ in SODIUM CHLORIDE 0.9% 250 ML 88.3 ML IV (10:53)
[2020-05-17] MEDS: fentaNYL 1,000 MCG in DEXTROSE 5% IN WATER 230 ML 13.4 ML IV (12:32)
--- NOTE | 2020-05-17 13:16 | P.PN_ITS ---
Subjective Subjective Date Patient Seen: 05/17/20 Time Patient Seen: 13:20 Interval history: He is seen in the intensive care unit today intubated and on drips including Levophed, IV Push Protonix, sedation with propofol and fentanyl, IV fluid at 125 mL/hr. He is discussed at length with his and his 4 daughters. I proposed a transfer to probably have read where he could have access to multiple specialties to deal with his multiple comorbid active conditions including hemoptysis, GI bleeding, stroke, AK and anemia. They made a point of each of them recalling that he would not want to live in a diminished capacity, unable to move his arms, unable to speak etc. They also agreed that he did not, despite being a full code, wants to be transferred out of the area where it would be inconvenient for them to be present. The white blood count has dropped from 15/05 down to 18.5. The troponin has risen to 0.86. The hemoglobin is looking good at 13.2 with platelets of 206. At the time of his intubation he was reported to have a flaccid right arm and leg. Overnight he had a crisis with atrial fibrillation rapid ventricular response, likely accounting for the rising troponin and the type 2 AK. His oxygenation is looking very good. On an FiO2 of 30% his pH is 7.42 with pCO2 of 27 and a PO2 of 77. His tidal volume is 450 with the set respiratory ra te of 15 and 5 of PEEP. Exam Vital Signs (past 8 hours): - 05/17/20 06:00 05/17/20 06:05 05/17/20 06:09 Pulse Rate 60 60 57 L Respiratory Rate 15 15 15 Blood Pressure 81/49 L 76/47 L 104/59 L Pulse Oximetry 98 98 100 05/17/20 06:15 05/17/20 06:20 05/17/20 06:25 Pulse Rate 57 L 58 L 57 L Respiratory Rate 15 15 15 Blood Pressure 107/59 L 99/56 L 107/57 L Pulse Oximetry 100 100 100 05/17/20 06:30 05/17/20 06:35 05/17/20 06:40 Pulse Rate 58 L 58 L 55 L Respiratory Rate 15 15 15 Blood Pressure 94/55 L 100/56 L 102/56 L Pulse Oximetry 100 100 100 05/17/20 08:00 05/17/20 12:00 Pulse Rate Respiratory Rate Blood Pressure Pulse Oximetry 100 98 Oxygen Delivery Method Mechanical Ventilation Oxygen Flow Rate 50 Narrative Exam Narrative: He is sedated with propofol and fentanyl, intubated and appears quite comfortable. Heart is regular rate and rhythm without murmur Lungs are clear to auscultation bilaterally Abdomen is soft, bowel sounds positive, no organomegaly. The bilateral inguinal hernia scars look normal without signs of infection or hemorrhage. The periumbilical scar also looks normal and is swollen to the expected amount only. Extremities have no ankle edema Objective Labs Result Diagrams: 05/17/20 04:00 05/17/20 04:00 Labs: Laboratory Results - last 24 hr 05/16/20 05/16/20 05/16/20 19:19 19:19 19:19 WBC 21.0 H RBC 3.90 L Hgb 11.6 L Hct 34.2 L MCV 87.6 MCH 29.8 MCHC 34.0 RDW 13.4 Plt Count 347 Neut % (Auto) 87.1 H Lymph % (Auto) 5.7 L [place] % (Auto) 7.0 Eos % (Auto) 0.0 L Baso % (Auto) 0.2 Neut # (Auto) 28544 H Lymph # (Auto) 1200 [place] # (Auto) 1500 H Eos # (Auto) 0 Baso # (Auto) 100 PT INR APTT Fibrinogen D-Dimer ABG pH ABG pCO2 ABG pO2 ABG HCO3 ABG Total CO2 ABG O2 Saturation ABG Base Excess FiO2 Sodium 134 L Potassium 3.5 Chloride 105 Carbon Dioxide 22 BUN 52 H Creatinine 1.22 Estimated GFR 57.0 L BUN/Creatinine Ratio 42.6 H Glucose 216 H Lactate Calcium 8.1 L Magnesium Troponin I NT-Pro-B Natriuret Pep Procalcitonin Blood Type O Positive Antibody Screen Negative Crossmatch See Detail 05/16/20 05/16/20 05/16/20 19:19 19:19 19:19 WBC RBC Hgb Hct MCV MCH MCHC RDW Plt Count Neut % (Auto) Lymph % (Auto) [place] % (Auto) Eos % (Auto) Baso % (Auto) Neut # (Auto) Lymph # (Auto) [place] # (Auto) Eos # (Auto) Baso # (Auto) PT 14.4 H INR 1.2 APTT 31 Fibrinogen 440 H D-Dimer 1729 H ABG pH ABG pCO2 ABG pO2 ABG HCO3 ABG Total CO2 ABG O2 Saturation ABG Base Excess FiO2 Sodium Potassium Chloride Carbon Dioxide BUN Creatinine Estimated GFR BUN/Creatinine Ratio Glucose Lactate Calcium Magnesium 1.7 Troponin I NT-Pro-B Natriuret Pep Procalcitonin Blood Type Antibody Screen Crossmatch 05/16/20 05/16/20 05/16/20 20:22 23:00 23:00 WBC RBC Hgb Hct MCV MCH MCHC RDW Plt Count Neut % (Auto) Lymph % (Auto) [place] % (Auto) Eos % (Auto) Baso % (Auto) Neut # (Auto) Lymph # (Auto) [place] # (Auto) Eos # (Auto) Baso # (Auto) PT INR APTT Fibrinogen D-Dimer ABG pH 7.45 ABG pCO2 27.6 L ABG pO2 120 H ABG HCO3 19 L ABG Total CO2 20 L ABG O2 Saturation 99 ABG Base Excess -5.0 L FiO2 50 Sodium Potassium Chloride Carbon Dioxide BUN Creatinine Estimated GFR BUN/Creatinine Ratio Glucose Lactate Calcium Magnesium Troponin I 0.159 H* NT-Pro-B Natriuret Pep Procalcitonin 0.25 Blood Type Antibody Screen Crossmatch 05/16/20 05/17/20 05/17/20 23:00 01:50 01:50 WBC RBC Hgb 12.3 L Hct 37.1 L MCV MCH MCHC RDW Plt Count Neut % (Auto) Lymph % (Auto) [place] % (Auto) Eos % (Auto) Baso % (Auto) Neut # (Auto) Lymph # (Auto) [place] # (Auto) Eos # (Auto) Baso # (Auto) PT INR APTT Fibrinogen D-Dimer ABG pH ABG pCO2 ABG pO2 ABG HCO3 ABG Total CO2 ABG O2 Saturation ABG Base Excess FiO2 Sodium Potassium Chloride Carbon Dioxide BUN Creatinine Estimated GFR BUN/Creatinine Ratio Glucose Lactate 2.9 H 2.2 H Calcium Magnesium Troponin I NT-Pro-B Natriuret Pep Procalcitonin Blood Type Antibody Screen Crossmatch 05/17/20 05/17/20 05/17/20 04:00 04:00 04:00 WBC 18.5 H RBC 4.52 Hgb 13.2 L Hct 38.7 L MCV 85.7 MCH 29.2 MCHC 34.0 RDW 14.4 Plt Count 206 Neut % (Auto) 83.5 H Lymph % (Auto) 8.2 L [place] % (Auto) 7.7 Eos % (Auto) 0.1 L Baso % (Auto) 0.5 Neut # (Auto) 65823 H Lymph # (Auto) 1500 [place] # (Auto) 1400 H Eos # (Auto) 0 Baso # (Auto) 100 PT INR APTT Fibrinogen D-Dimer ABG pH ABG pCO2 ABG pO2 ABG HCO3 ABG Total CO2 ABG O2 Saturation ABG Base Excess FiO2 Sodium 136 L Potassium 3.5 Chloride 110 H Carbon Dioxide 23 BUN 57 H Creatinine 1.27 H Estimated GFR 54.4 L BUN/Creatinine Ratio 44.9 H Glucose 142 H Lactate Calcium 6.9 L Magnesium Troponin I 0.862 H* NT-Pro-B Natriuret Pep Procalcitonin Blood Type Antibody Screen Crossmatch 05/17/20 05/17/20 05/17/20 04:00 04:00 04:57 WBC RBC Hgb Hct MCV MCH MCHC RDW Plt Count Neut % (Auto) Lymph % (Auto) [place] % (Auto) Eos % (Auto) Baso % (Auto) Neut # (Auto) Lymph # (Auto) [place] # (Auto) Eos # (Auto) Baso # (Auto) PT INR APTT Fibrinogen D-Dimer ABG pH 7.40 ABG pCO2 29.7 L ABG pO2 93 ABG HCO3 18 L ABG Total CO2 19 L ABG O2 Saturation 97 ABG Base Excess -7.0 L FiO2 50 Sodium Potassium Chloride Carbon Dioxide BUN Creatinine Estimated GFR BUN/Creatinine Ratio Glucose Lactate Calcium Magnesium 2.0 Troponin I NT-Pro-B Natriuret Pep 2670 H Procalcitonin Blood Type Antibody Screen Crossmatch 05/17/20 05/17/20 10:07 10:17 WBC RBC Hgb Hct MCV MCH MCHC RDW Plt Count Neut % (Auto) Lymph % (Auto) [place] % (Auto) Eos % (Auto) Baso % (Auto) Neut # (Auto) Lymph # (Auto) [place] # (Auto) Eos # (Auto) Baso # (Auto) PT INR APTT Fibrinogen D-Dimer ABG pH 7.42 ABG pCO2 27.0 L ABG pO2 77 L ABG HCO3 18 L ABG Total CO2 18 L ABG O2 Saturation 96 ABG Base Excess -7.0 L FiO2 30 Sodium Potassium Chloride Carbon Dioxide BUN Creatinine Estimated GFR BUN/Creatinine Ratio Glucose Lactate Calcium Magnesium Troponin I 0.921 H* NT-Pro-B Natriuret Pep Procalcitonin Blood Type Antibody Screen Crossmatch [facility] Medical History Benign neoplasm of colon CAD (coronary artery disease) Chronic diastolic (congestive) heart failure Chronic kidney disease COPD (chronic obstructive pulmonary disease) Gastroesophageal reflux HTN (hypertension) Hyperlipemia Impaired fasting glucose Major depressive disorder Male erectile disorder Surgical History (Updated 05/14/20 @ 09:44 by Sandra Vallejo RN) History of cholecystectomy S/P CABG x 3 Social History household members: spouse Smoking Status: Former smoker Assessment & Plan Assessment & Plan narrative: Patient is an 80-year-old male with history of coronary artery disease, CABG x 3 vessels about 8 years ago, hypertension and hyperlipidemia now admitted due to acute CVA. GI Bleed -acute onset the afternoon of 05/16, concurrent with hemoptysis, of melena and eventually blood in NG tube after intubation -hemoptysis has cleared with residual NG tube aspiration of bloody fluid suggestive of the hemoptysis actually be a GI source? -started on IV Protonix with hemoglobin up to 13.2 today after receiving 4 units of packed red blood cells overnight. -surgery has been consulted and the patient will be a candidate for EGD once he stabilizes. -consulting with the patient's and her 4 stepdaughters, his daughters who are all in agreement that the patient would not want to be transferred to a referral center for bronchoscopy and other interventions at this time. -hypotension treated with IVF and Levophed Hemoptysis -intubated for airway protection. FiO2 of 30% with pH of 7.42. -no blood in endotracheal tube currently so will plan to extubate him in the morning. Continue sedation. Chest x-ray and CT angiogram were reviewed Type 2 AK/atrial fibrillation with rapid ventricular response -demand ischemia from atrial fibrillation rapid ventricular response overnight with rising troponin initially at 0.156 then 0.886 and later this morning 0.921 -EKG reviewed, no acute ST wave changes. -discussed transfer to a hospital with cardiology coverage and per discussions noted above family opted to keep him here. -now back in sinus rhythm. Did not require the amiodarone that was just about to be given Acute left parietal CVA, present on admission, active -patient presenting with new onset severe aphasia, right facial droop, not candidate for tPA, subsequently has developed moderate weakness in right upper and lower extremity -head CT no acute findings, CT a with complete occlusion left ICA and 80% occluded right ICA, per stroke neurologist ICA occlusions are not likely etiology for his stroke -EKG sinus rhythm -received aspirin and had planned to add Plavix but did not receive it before his hemoptysis/hematemesis occured on 05/16 -allow permissive hypertension -telemetry: NSR -brain MRI: Acute cortical infarction involving posterior and posteromedial left parietal lobe, no mass effect, chronic small-vessel ischemic disease -echo: Small hyperdynamic LV LVEF 75-80%, normal RV, no significant valvular disease -plans for PT/OT/speech therapy were delayed by the patient's need to be intubated due to active hemoptysis on 05/16 Bilateral carotid artery occlusion -as noted on CTA he has complete occlusion left ICA and 80% occlusion right ICA, per stroke neurologist was not thought to require urgent intervention -outpatient vascular surgery follow-up for carotid artery stenosis Acute leukocytosis present on admission, active -likely stress-related demargination versus infection, patient is afebrile and has not had a cough -chest x-ray reported as minimal streaky left lung infiltrate likely atelectasis or scar, appears similar to prior years x-rays -urinalysis normal -repeat WBC from 22.1 down to 18.5 on 05/17 Hyperlipidemia -LDL 75 -continue rosuvastatin 20 mg q.d. Essential hypertension -currently not on home meds, per last visit note on 05/07/[address] Weston patient has not been taking his chlorthalidone or metoprolol tartrate Status post bilateral inguinal hernia repair 05/14/2020 -surgical sites without sign of infection, stroke is not related to recent surgery History of depression -holding sertraline 50 mg q.d while intubated. Admitted to inpatient service Code status: Full code DVT prophylaxis: Sequential compression device. Stop enoxaparin. Surrogate decision maker: Spouse
--- NOTE | 2020-05-17 14:32 | CM.DPC ---
DCP/continued: Received update from Dr. Cortez this afternoon. He reports that he has spoken with family and they do not want patient to transfer to higher level of care. Family reports that patient would not want additional interventions. At this time it is unknown if patient will need SNF vs. comfort measures. It is anticipated that patient will be extubated later today. P: Pending. DIANN Moran
--- NOTE | 2020-05-17 16:45 | PC.NURSE ---
Evening shift Note: Pt is intubated and sedated. Propofol and fentanyl gtts for sedation and pain management. Pt with RASS -2 to -3. Pt is able to marketing services rep hands with L hand and moves L foot spontaneously. Pt grimacing with oral care but no gag appreciated. Pt coughs with endotracheal suctioning. No movement noted on R side. Pt is restrained on L side. PRVC. FiO2 30%; PEEP 5; TV 450; RR 15, breathing at 15. Pt is tolerating mechanical ventilation. Pt is in NSR with HR 60s. BP is WNL without vasopressor support. NS running at 125 ml/hr. No appreciable edema. Pt with elevated troponins. MD aware. Pt with small amount of dark brown/bloody appearing output from OG to LIS. Pt with indwelling catheter, adequate volume, clear yellow urine. Pt is post-surgical, inguinal hernia repair. Bruising at surgical site and on scrotum. Bruising and abrasions on arms. Pt turned, skin is intact on back-side.
[2020-05-17] MEDS: SODIUM CHLORIDE 0.9% 1,000 ML 125 ML IV (18:16)
[2020-05-17] MEDS: propofoL 1,000 MG/100 ML VIAL 6.381 MG IV (22:06)
[2020-05-18] VITALS (68 sets, daily range): BP systolic 102–183; BP diastolic 52–77; PULSE 47–76; RESP 1–34; TEMP 35.9–37.2; O2SAT 93–100
[2020-05-18] MEDS: SODIUM CHLORIDE 0.9% 1,000 ML 125 ML IV ×2 (02:42→10:35)
[2020-05-18] MEDS: fentaNYL 1,000 MCG in DEXTROSE 5% IN WATER 230 ML IV (04:39)
[2020-05-18 05:40] LABS: Add Manual Diff / Slide Review NO; Basophils Absolute Auto 100 /uL (0-100); Basophils Percent Auto 0.4 % (0-2); Eosinophils Absolute Auto 100 /uL (0-450); Hematocrit 32.9 % (41-53); Hemoglobin 11.1 g/dL (13.5-17.5); Lymphocytes Absolute Auto 1300 /uL (1100-4500); Lymphocytes Percent Auto 10.2 % (25-40); Mean Corpuscular HGB Conc 33.8 % (30-36); Mean Corpuscular Hemoglobin 29.4 PG (26-34); Monocytes Absolute Auto 1100 /uL (0-900); Monocytes Percent Auto 8.4 % (3-14); Neutrophils Absolute Auto 10100 /uL (1500-7000); Platelet Count 154 X10^3/uL (150-400); Red Blood Cell Count 3.78 X10^6/uL (4.5-5.9); Red Cell Distribution Width 14.7 % (11.6-14.8); White Blood Cell Count 12.7 X10^3/uL (4.5-11.0)
[2020-05-18 05:52] LABS: BUN Creatinine Ratio 37.8 (6-22); Blood Urea Nitrogen 37 mg/dL (9-20); Calcium 7.6 mg/dL (8.4-10.2); Carbon Dioxide 23 mmol/L (22-32); Chloride 116 mmol/L (98-107); Estimated Glomerular Filt Rate > 60.0 mL/min (>60); Glucose 103 mg/dL (80-110); HEMOLYSIS < 15 (0-50); Sodium 139 mmol/L (137-145)
[2020-05-18 06:05] LABS: NT-proBNP (BNP-Adult 18+) 1080 pg/mL (<450)
[2020-05-18 06:10] LABS: Troponin I 0.353 ng/mL (0.01-0.034)
[2020-05-18 06:41] LABS: Magnesium 1.8 mg/dL (1.6-2.3)
--- NOTE | 2020-05-18 07:40 | OT.IPNOTE ---
Chart reviewed and nursing consulted. Pt is still intubated with tentative plans for extubation later today. Will hold at this time and continue to follow.
[2020-05-18] MEDS: PANTOPRAZOLE 40 MG VIAL IV ×2 (08:35→20:24)
--- NOTE | 2020-05-18 08:44 | PT-IP ANOTE ---
pt still intubated. nurse stated that pt is not appropriate for PT this morning. pt is planned for extubation later on and to f/u afterwards.
--- NOTE | 2020-05-18 08:47 | PC.NURSE ---
Addendum entered by Gilda Medel R.N. 05/18/20 14:47: 1430-RT has continued to work with Pt to wean from vent. Tolerated ~15 min of CPAP setting, next attempt will be @ 1700. Sedation remains off. Pt continues with restraint to L wrist. Repositioning PRN to offload pressure. Lungs remain slightly coarse, Tele remains SB. Addendum entered by Gilda Medel R.N. 05/18/20 14:36: 1200-Pt continues off sedation with ETT in place, not able to breathe without pressure support on vent. Will continue to adjust settings per RT and see if extubation will be possible, Pt is becoming more awake, more able to follow instruction with L side, hand squeeze, wiggle toes, RUE remains flaccid, very isolated spastic movement noted. Pt shakes head no when asked about pain, facial grimace noted during oral care. K rider completing, Ca replaced. NS to continue @ 75mls/hr after electrolyte replacement. at bedside and updated of progress throughout shift. Addendum entered by Gilda Medel R.N. 05/18/20 11:13: Sedation off at 1105am. Addendum entered by Gilda Medel R.N. 05/18/20 10:37: With lightened sedation, Pt is able to follow simple commands, move L sided extremeties, and deny pain with shake of head. Still no holding of gaze when eyes are open to touch. Soft restraint to LUE remains. RLE appears to have interminent spastic movement Original Note: Am shift Pt has continued to tolerate mechanical vent. After assessed by Dr Cortez, proceed with sedation trial, with goal of extubation. Spo2 98% on vent. Propofol and Fentanyl gtt reduced in half. OG to LIS remains with scant bilious/blood tinged secretions. RUE remains without purposeful movement. Spontaneous movement noted to BLE L>R BP remains stable.
[2020-05-18] MEDS: POTASSIUM CHLORIDE 30 MEQ in SODIUM CHLORIDE 0.9% 250 ML 88.333 ML IV (09:02)
--- NOTE | 2020-05-18 11:50 | P.PN_ITS ---
Subjective Subjective Date Patient Seen: 05/18/20 Time Patient Seen: 13:35 Interval history: His is present. Her questions are answered. Sedation is turned off and preparations are made for extubation. Several hours later the patient still is quite sedated and not able to breathe on his own yet although beginning to show movement on the left side as expected. He is not spontaneously opening his eyes yet. His troponin has dropped to 0.353. The potassium was 3.0 so potassium has been given. The calcium has dropped from 9-7 so additional calcium will be given. White blood count has dropped 12.7. There is bile seen in the oral gastric tube aspiration. There may be some blood in there also. There is less than 200 mL in the container. Exam Vital Signs (past 8 hours): - 05/18/20 04:00 05/18/20 08:00 05/18/20 09:00 Temperature 98.4 F Pulse Rate 55 L 65 51 L Respiratory Rate 15 15 15 Blood Pressure 102/54 L 131/63 119/58 L Pulse Oximetry 95 99 98 05/18/20 10:00 05/18/20 11:00 Temperature Pulse Rate 51 L 49 L Respiratory Rate 15 15 Blood Pressure 114/54 L 103/55 L Pulse Oximetry 98 98 Fraction of Inspired Oxygen 0.3 Oxygen Delivery Method Mechanical Ventilation Oxygen Flow Rate 30 Narrative Exam Narrative: He is still quite sedated. After several hours without the fentanyl/propofol he responds with movement of the left hand and left leg when touched and spoken to. Heart is regular rate and rhythm without murmur Lungs are clear to auscultation bilaterally There is no ankle edema There is no reactive/volitional movement seen of the right leg and right hand in contrast to the movements on the left side Objective Labs Result Diagrams: 05/18/20 04:42 05/18/20 04:42 Labs: Laboratory Results - last 24 hr 05/18/20 05/18/20 05/18/20 04:42 04:42 04:42 WBC 12.7 H RBC 3.78 L Hgb 11.1 L Hct 32.9 L MCV 87.0 MCH 29.4 MCHC 33.8 RDW 14.7 Plt Count 154 Neut % (Auto) 80.0 H Lymph % (Auto) 10.2 L [place] % (Auto) 8.4 Eos % (Auto) 1.0 L Baso % (Auto) 0.4 Neut # (Auto) 69650 H Lymph # (Auto) 1300 [place] # (Auto) 1100 H Eos # (Auto) 100 Baso # (Auto) 100 Sodium 139 Potassium 3.0 L Chloride 116 H Carbon Dioxide 23 BUN 37 H Creatinine 0.98 Estimated GFR > 60.0 BUN/Creatinine Ratio 37.8 H Glucose 103 Calcium 7.6 L Magnesium 1.8 Troponin I 0.353 H* NT-Pro-B Natriuret Pep 1080 H PFSH Medical History Benign neoplasm of colon CAD (coronary artery disease) Chronic diastolic (congestive) heart failure Chronic kidney disease COPD (chronic obstructive pulmonary disease) Gastroesophageal reflux HTN (hypertension) Hyperlipemia Impaired fasting glucose Major depressive disorder Male erectile disorder Surgical History (Updated 05/14/20 @ 09:44 by Sandra Vallejo RN) History of cholecystectomy S/P CABG x 3 Social History household members: spouse Smoking Status: Former smoker Assessment & Plan Assessment & Plan narrative: Patient is an 80-year-old male with history of coronary artery disease, CABG x 3 vessels about 8 years ago, hypertension and hyperlipidemia now admitted due to acute CVA. GI Bleed -acute onset the afternoon of 05/16, concurrent with hemoptysis, of melena and eventually blood in NG tube after intubation -hemoptysis has cleared with residual NG tube aspiration of bloody fluid suggestive of the hemoptysis actually being a GI source? -started on IV Protonix with hemoglobin up to 13.2 05/17 after receiving 4 units of packed red blood cells overnight. 05/18 hgb 11.1. -surgery has been consulted and the patient will be a candidate for EGD once he stabilizes. -05/17 consulted with the patient's and her 4 stepdaughters, (his daughters) who are all in agreement that the patient would not want to be transferred to a referral center for bronchoscopy and other interventions at this time. -hypotension treated with IVF and Levophed -repeat hgb 05/19 Hemoptysis -intubated for airway protection. FiO2 of 30% with pH of 7.42 on 05/17. -05/18 appears stable for extubation. Ventilator parameters weaned and sedation turned off. The patient continues to be quite sedated so may require Fentanyl reversal? Type 2 CT/atrial fibrillation with rapid ventricular response -demand ischemia from atrial fibrillation rapid ventricular response overnight with rising troponin initially at 0.156 then 0.886 then 0.921 and then 0.353 on 05/18 -EKG reviewed, no acute ST wave changes. -discussed transfer to a hospital with cardiology coverage and per discussions noted above family opted to keep him here. -now back in sinus rhythm. Did not require the amiodarone that was just about to be given Acute left parietal CVA, present on admission, active -patient presenting with new onset severe aphasia, right facial droop, not candidate for tPA, subsequently has developed moderate weakness in right upper and lower extremity -head CT no acute findings, CT a with complete occlusion left ICA and 80% occluded right ICA, per stroke neurologist ICA occlusions are not likely renee ology for his stroke -EKG sinus rhythm -received aspirin and had planned to add Plavix but did not receive it before his hemoptysis/hematemesis occured on 05/16 -allowed permissive hypertension -telemetry: NSR -brain MRI: Acute cortical infarction involving posterior and posteromedial left parietal lobe, no mass effect, chronic small-vessel ischemic disease -echo: Small hyperdynamic LV LVEF 75-80%, normal RV, no significant valvular disease -plans for PT/OT/speech therapy were delayed by the patient's need to be intubated due to active hemoptysis on 05/16 -05/18 now awaiting sedation recovery for re-evaluation of status and resumption of therapy. Bilateral carotid artery occlusion -as noted on CTA he has complete occlusion left ICA and 80% occlusion right ICA, per stroke neurologist was not thought to require urgent intervention -outpatient vascular surgery follow-up for carotid artery stenosis Acute leukocytosis present on admission, active -likely stress-related demargination versus infection, patient is afebrile and has not had a cough -chest x-ray reported as minimal streaky left lung infiltrate likely atelectasis or scar, appears similar to prior years x-rays -urinalysis normal -repeat WBC from 22.1 down to 18.5 on 05/17 and 12.7 on 05/18 Hyperlipidemia -LDL 75 -continue rosuvastatin 20 mg q.d. Essential hypertension -currently not on home meds, per last visit note on 05/07/[address] Weston patient has not been taking his chlorthalidone or metoprolol tartrate Status post bilateral inguinal hernia repair 05/14/2020 -surgical sites without sign of infection, stroke is not related to recent surgery History of depression -holding sertraline 50 mg q.d while intubated. Admitted to inpatient service Code status: Full code initially and on 05/17 changed to DNR DVT prophylaxis: Sequential compression device. Stopped enoxaparin. Surrogate decision maker: Spouse
[2020-05-18] MEDS: POTASSIUM CHLORIDE 30 MEQ in SODIUM CHLORIDE 0.9% 250 ML 83 ML IV (12:24)
[2020-05-18] MEDS: CALCIUM GLUCONATE 9.3 MEQ in SODIUM CHLORIDE 0.9% 50 ML 140 ML IV (13:49)
--- NOTE | 2020-05-18 14:40 | PT-IP ANOTE ---
checked in with nurse and stated that pt has not been extubated yet and not appropriate for PT at this time. will f/u tomorrow and if pt continues to be inappropriate, may have to d/c PT until pt is more medically stable to participate in PT.
[2020-05-18] MEDS: NALOXONE 0.4 MG/ML VIAL 0.2 MG IV (16:59)
[2020-05-18] MEDS: propofoL 1,000 MG/100 ML VIAL 3.191 MG IV (17:22)
--- NOTE | 2020-05-18 18:03 | PC.NURSE ---
Evening Shift Note: Pt with sedation and pain medication off since 11 am. Pt remains with flaccid R arm and R leg. No spontaneous movement noted on R side. Pt with bead preparer on L side, but initially it was difficult to determine if pt was making purposeful movements and following commands, or just having reflexive gripping. Spontaneous movement noted in L leg. Pt then given Narcan 0.2 mg IV to assess mental status. Pt immediately more wakeful, agitated, gesturing to ETT. RR up to 36. Effects of narcan lasted ~20 minutes, but propofol restarted at low dose. Pt will not be extubated this evening, until sedative effects of narcotics no longer observed. Pt remains ventilated, SIMV with PRVC. RR 12 (breathing at 14 spontaneously before narcan given), TV 450, FiO2 30%, PEEP 5. Pt is not wakeful enough to attempt another SBT tonight. Pt in SB, HR 50-60, occasional PACs. SBP 120s-130s. Up to 180s with agitation. Pt with OG tube to LIS. Small amount of bilious output noted in cannister. Initially output was dark red. Pt with indwelling sanchez catheter. Pt with adequate uop. Dark yellow, clear.Pt with inguinal hernia incisions CDI, aranza-wound bruising but incisions well-approximated with steri-strips. Pt's is at bedside, apprised of pt's condition. Will continue to monitor, notify MD with changes.
[2020-05-19] VITALS (52 sets, daily range): BP systolic 126–187; BP diastolic 60–79; PULSE 43–74; RESP 1–36; TEMP 36.3–36.8; O2SAT 86–99
[2020-05-19] MEDS: SODIUM CHLORIDE 0.9% 1,000 ML 125 ML IV (01:52)
[2020-05-19 05:16] LABS: Add Manual Diff / Slide Review NO; Basophils Absolute Auto 100 /uL (0-100); Basophils Percent Auto 0.9 % (0-2); Eosinophils Absolute Auto 100 /uL (0-450); Hematocrit 33.4 % (41-53); Hemoglobin 11.3 g/dL (13.5-17.5); Lymphocytes Absolute Auto 1200 /uL (1100-4500); Lymphocytes Percent Auto 9.8 % (25-40); Mean Corpuscular HGB Conc 33.7 % (30-36); Mean Corpuscular Hemoglobin 29.4 PG (26-34); Mean Corpuscular Volume 87.2 fL (80-100); Monocytes Absolute Auto 1200 /uL (0-900); Monocytes Percent Auto 9.3 % (3-14); Neutrophils Absolute Auto 9800 /uL (1500-7000); Platelet Count 157 X10^3/uL (150-400); Red Blood Cell Count 3.83 X10^6/uL (4.5-5.9); Red Cell Distribution Width 14.2 % (11.6-14.8); White Blood Cell Count 12.4 X10^3/uL (4.5-11.0)
[2020-05-19 05:27] LABS: Blood Urea Nitrogen 27 mg/dL (9-20); Calcium 7.8 mg/dL (8.4-10.2); Carbon Dioxide 23 mmol/L (22-32); Chloride 117 mmol/L (98-107); Estimated Glomerular Filt Rate > 60.0 mL/min (>60); Glucose 106 mg/dL (80-110); HEMOLYSIS < 15 (0-50); Magnesium 1.9 mg/dL (1.6-2.3); Potassium 3.2 mmol/L (3.4-5.1); Sodium 142 mmol/L (137-145)
[2020-05-19] MEDS: POTASSIUM CHLORIDE 30 MEQ in SODIUM CHLORIDE 0.9% 250 ML 88.333 ML IV ×2 (06:24→10:40)
--- NOTE | 2020-05-19 07:22 | P.PN_ITS ---
Subjective Subjective Date Patient Seen: 05/19/20 Time Patient Seen: 11:49 Interval history: He remains on a ventilator, slowly being weaned down to just pressure support and now breathing on his own after the propofol which had been left on overnight was titrated off this morning. He has been off the fentanyl drip now for over 24 hours so that seems to have fully worn off. Yesterday afternoon he was given 0.2 mg of Narcan and woke up in the next few minutes p urposefully moving his left side and trying to pull the tube but not opening his eyes. The Narcan wore off after about 15 minutes. The fentanyl effect appears to have substantially cleared this morning. He will be extubated and he is now DNR. Family did not want any interventions that would prolong his life in a diminished state as that was something they understood very clearly from him he would not want done, so no TPN or tube nutritional support is planned. Otherwise he is doing well. The OG tube aspiration now looks very watery and bilious instead of bloody. His white blood count is 12.4 with a hemoglobin of 11.3. The potassium was 3.2 so an additional 60 mEq of potassium was given. The calcium is 7.8 so 2 g of calcium gluconate are given. His heart rate is in the 40s and 50s while sedated and climbs into the 80s when the sedation is lightened. There is no spontaneous movement of the right side. He does not open his eyes and does not appear to show any effort to open his eyes when requested. Exam Vital Signs (past 8 hours): - 05/18/20 23:30 05/18/20 23:31 05/19/20 00:00 Temperature Pulse Rate 51 L 51 L 50 L Respiratory Rate 14 15 13 Blood Pressure 157/65 H 141/64 H Pulse Oximetry 98 99 98 05/19/20 00:30 05/19/20 01:00 05/19/20 01:30 Temperature Pulse Rate 48 L 48 L 50 L Respiratory Rate 13 13 13 Blood Pressure 142/63 H 135/62 151/65 H Pulse Oximetry 98 98 98 05/19/20 02:00 05/19/20 02:30 05/19/20 03:00 Temperature Pulse Rate 48 L 47 L 46 L Respiratory Rate 13 12 12 Blood Pressure 136/63 132/60 131/60 Pulse Oximetry 98 98 97 05/19/20 03:30 05/19/20 03:42 05/19/20 04:00 Temperature Pulse Rate 46 L 47 L Respiratory Rate 13 13 Blood Pressure 136/61 135/63 Pulse Oximetry 99 99 98 05/19/20 04:30 05/19/20 05:00 05/19/20 05:24 Temperature 97.8 F Pulse Rate 47 L 48 L Respiratory Rate 13 15 Blood Pressure 137/62 147/64 H Pulse Oximetry 98 95 Fraction of Inspired Oxygen 0.3 Oxygen Delivery Method Mechanical Ventilation Oxygen Flow Rate 30 Narrative Exam Narrative: He remains quite sedated. He responds with movements of the left hand and left foot that appear to be purposeful. He does not open his eyes. Heart is regular rate and rhythm without murmur. Lungs are clear to auscultation bilaterally. There is no ankle edema His abdomen is soft without apparent tenderness and without organomegaly. He is completely flaccid on the right side both upper and lower extremities. Babinski's are upgoing on the right and downgoing on the left. Yesterday when the Narcan was given he was making purposeful movements to pull the tube with his left hand. He does not open his eyes when requested. Objective Labs Result Diagrams: 05/19/20 04:56 05/19/20 04:56 Labs: Laboratory Results - last 24 hr 05/19/20 05/19/20 04:56 04:56 WBC 12.4 H RBC 3.83 L Hgb 11.3 L Hct 33.4 L MCV 87.2 MCH 29.4 MCHC 33.7 RDW 14.2 Plt Count 157 Neut % (Auto) 79.0 H Lymph % (Auto) 9.8 L [place] % (Auto) 9.3 Eos % (Auto) 1.0 L Baso % (Auto) 0.9 Neut # (Auto) 9800 H Lymph # (Auto) 1200 [place] # (Auto) 1200 H Eos # (Auto) 100 Baso # (Auto) 100 Sodium 142 Potassium 3.2 L Chloride 117 H Carbon Dioxide 23 BUN 27 H Creatinine 0.90 Estimated GFR > 60.0 BUN/Creatinine Ratio 30.0 H Glucose 106 Calcium 7.8 L Magnesium 1.9 PFSH Medical History Benign neoplasm of colon CAD (coronary artery disease) Chronic diastolic (congestive) heart failure Chronic kidney disease COPD (chronic obstructive pulmonary disease) Gastroesophageal reflux HTN (hypertension) Hyperlipemia Impaired fasting glucose Major depressive disorder Male erectile disorder Surgical History (Updated 05/14/20 @ 09:44 by Sandra Vallejo RN) History of cholecystectomy S/P CABG x 3 Social History household members: spouse Smoking Status: Former smoker Assessment & Plan Assessment & Plan narrative: Patient is an 80-year-old male with history of coronary artery disease, CABG x 3 vessels about 8 years ago, hypertension and hyperlipidemia now admitted due to acute CVA. GI Bleed -acute onset the afternoon of 05/16, concurrent with hemoptysis, also with melena and eventually blood in NG tube after intubation -hemoptysis has cleared with residual NG tube aspiration of bloody fluid suggestive of the hemoptysis actually being a GI source? -started on IV Protonix with hemoglobin up to 13.2 05/17 after receiving 4 units of packed red blood cells overnight. 05/18 hgb 11.1. 05/19 hgb 11.3. -surgery has been consulted and the patient was to have been a candidate for EGD once he stabilizes. -05/17 consulted with the patient's and her 4 stepdaughters, (his daughters) who are all in agreement that the patient would not want to be transferred to a referral center for bronchoscopy and other interventions at this time. -hypotension treated with IVF and Levophed, resolved -Family decision on EGD would depend on how he does have extubation. Their theme is to avoid interventions that would prolong his life in a diminished physical state. He made his wishes very clear to them. Cardiogenic Shock -hypotension treated with IVF and Levophed, resolved Acute respiratory failure with hypoxemia and hemoptysis -Extubating 05/19. Hemoptysis -intubated for airway protection. FiO2 of 30% with pH of 7.42 on 05/17. -05/18 appears stable for extubation. Ventilator parameters weaned and sedation turned off. The patient continues to be quite sedated so may require Fentanyl reversal? -afternoon of 05/18 was treated with Narcan 0.2 mg, demonstrating that the prolonged sedation was clearly a fentanyl effect as he was alert for about 15 minutes before that wore off and the fentanyl effect returned. -05/19 plan extubation with process in place now that sedation has worn off. Was maintained on very low-dose propofol overnight. Type 2 [place]/atrial fibrillation with rapid ventricular response -demand ischemia from atrial fibrillation rapid ventricular response overnight with rising troponin initially at 0.156 then 0.886 then 0.921 and then 0.353 on 05/18 -EKG reviewed, no acute ST wave changes. -discussed transfer to a hospital with cardiology coverage and per discussions noted above family opted to keep him here. -now back in sinus rhythm. Did not require the amiodarone that was just about to be given before he converted. Acute left parietal CVA, present on admission, active -patient presenting with new onset severe aphasia, right facial droop, not candidate for tPA, subsequently has developed moderate weakness in right upper and lower extremity -head CT no acute findings, CT a with complete occlusion left ICA and 80% occluded right ICA, per stroke neurologist ICA occlusions are not likely etiology for his stroke -EKG sinus rhythm -received aspirin and had planned to add Plavix but did not receive it before his hemoptysis/hematemesis occured on 05/16 -allowed permissive hypertension -telemetry: NSR -brain MRI: Acute cortical infarction involving posterior and posteromedial left parietal lobe, no mass effect, chronic small-vessel ischemic disease -echo: Small hyperdynamic LV LVEF 75-80%, normal RV, no significant valvular disease -plans for PT/OT/speech therapy were delayed by the patient's need to be intubated due to active hemoptysis on 05/16 -05/18 now awaiting sedation recovery for re-evaluation of status and resumption of therapy. -05/19 family likely to decline options of nutrition through TPN or feeding tube based on patient's prior stated wishes to avoid life-prolonging interventions in the event of a diminished physical capacity. Bilateral carotid artery occlusion -as noted on CTA he has complete occlusion left ICA and 80% occlusion right ICA, per stroke neurologist was not thought to require urgent intervention -outpatient vascular surgery follow-up for carotid artery stenosis Acute leukocytosis present on admission, active -likely stress-related demargination versus infection, patient is afebrile and has not had a cough -chest x-ray reported as minimal streaky left lung infiltrate likely atelectasis or scar, appears similar to prior years x-rays -urinalysis normal -repeat WBC from 22.1 down to 18.5 on 05/17 and 12.7 on 05/18 Hyperlipidemia -LDL 75 -continue rosuvastatin 20 mg q.d. Essential hypertension -currently not on home meds, per last visit note on 05/07/[address] Weston patient has not been taking his chlorthalidone or metoprolol tartrate Status post bilateral inguinal hernia repair 05/14/2020 -surgical sites without sign of infection, stroke is not related to recent surgery History of depression -holding sertraline 50 mg q.d while intubated. Admitted to inpatient service Code status: Full code initially and on 05/17 changed to DNR DVT prophylaxis: Sequential compression device. Stopped enoxaparin. Surrogate decision maker: Spouse (she has been consulting with his 4 daughters)
[2020-05-19] MEDS: PANTOPRAZOLE 40 MG VIAL IV ×2 (09:06→20:30)
--- NOTE | 2020-05-19 09:38 | PC.NURSE ---
Addendum entered by Gilda Medel R.N. 05/19/20 14:47: Pt tolerated being on CPAP all shift, Able to be extubated @ 1410. Pt Remains lethargic, flutters eyes, cannot hold gaze, RR even, variable 20-28 at preset. with coughing during suction and as requested. Appears comfortable at present. at bedside and discussing POC. Reiterated request for no TPN or feeding tube. NS infusing at 75mls/hr. Original Note: Am shift Assumed care of Pt with propofol 7mcg/kg/min infusing, Pt able to flutter eyelids, doesn't hold gaze. RASS -2. Following simple commands with Left hand and foot. Unable to assess any purposeful movement to Right side. Gag and cough noted with oral care. Cut sedation to 4mcg/kg/min, and completely off at 0925am. RT at bedside to assist in SBT.
[2020-05-19] MEDS: CALCIUM GLUCONATE 9.3 MEQ in SODIUM CHLORIDE 0.9% 50 ML 140 ML IV (12:00)
--- NOTE | 2020-05-19 13:48 | OT.IPNOTE ---
RN reports patient awaiting extubation and breathing trial and requests hold of therapy this date. Will plan to follow-up for additional treatment as indicated 05/20/20.
--- NOTE | 2020-05-19 14:43 | PT-IP ANOTE ---
Spontaneous breathing trial in process this PM. Will hold therapy. If pt unable to participate 1/25 AM, will discuss discharging therapy orders with attending physician.
--- NOTE | 2020-05-19 15:32 | CM.DPC ---
DCP Cont: Per MD, attempted pt extubation yesterday without success as pt remained quite sedated all day and attempted extubation again today with success in the later afternoon. Pt still with some labored breathing and not very responsive and with eyes closed but on NC oxygen and some room air trials. MD discussed if and family would like to initiate artificial feeding as pt has not eaten since his admission and decision made not to feed by way of TPN or TF. ST swallow eval ordered and likely not available until tomorrow Wednesday. Pt may not improve or be able to tolerate oral intake and then likely need for change to Comfort Care at that time. SW met bedside with pt and spouse, pt not able to participate at this time, and spouse confirms that she is hopeful pt may improve but aware that he may not and will see how pt does overnight. SW updated that referral had been sent to [facility] previously per her request and spouse is still currently open to the idea of SNF if pt improves. Spouse confirms she has been to pt only for 9 years and cannot remember if they completed DPOA pwk but states if they did there would likely be a copy at Dr. Weston's office (pt's PCP). Spouse confirms that pt's 4 daughters are currently here in [place] and have participated on FaceTime conversations with the Hospitalists and spouse/pt and currently all are in agreement with no artificial nutrition or transfer to higher level of care. SW called [facility] admissions September and updated on above and uncertain if pt will improve towards needing SNF rehab vs change to Comfort Care. September confirms that she initially attempted Insurance auth for SNF prior to intubation but had not gotten insurance auth yet but willing to follow up tomorrow Wednesday with insurance. Plan: SW to follow closely in the morning to see how pt did overnight and with Dr. Weston's office to see if they have a copy of DPOA for the patient and to check in with [facility]. Comfort Care/Hospice vs SNF at d/c pending progress. DIANN Mcdaniel
--- NOTE | 2020-05-19 18:48 | DI.RAD.S_ITS ---
PROCEDURE: XR CHEST 1V INDICATIONS: hypoxia TECHNIQUE: One view of the chest was acquired. COMPARISON: [facility], CT, CT ANGIO CHEST PE PROTOCOL, 05/17/2020, 0:48. [facility], CR, XR CHEST 1V, 05/16/2020, 18:13. FINDINGS: Surgical changes and devices: Remote CABG Lungs and pleura: Patchy bilateral pulmonary infiltrates. No pleural effusions or pneumothorax. Mediastinum: Mediastinal contours appear normal. Heart size is normal. Bones and chest wall: No suspicious bony lesions. Overlying soft tissues appear unremarkable. IMPRESSION: Patchy bilateral pulmonary infiltrates. Consider bacterial versus viral pneumonia. Dictated by: Tyler Trujillo M.D. on 05/19/2020 at 19:08 Approved by: Tyler Trujillo M.D. on 05/19/2020 at 19:10
--- NOTE | 2020-05-19 18:52 | PC.NURSE ---
1839 Pt O2 Sats dropped from 96 to 86 precipitously, oral trachael suctioning done and nasal O2 started at 2L. Large amount of white thick mucous suctioned from airway. Sats now 95% on 2L. made aware.
[2020-05-19] MEDS: SODIUM CHLORIDE 0.9% FLUSH 10 ML IV (20:32)
[2020-05-19 21:05] LABS: Adenovirus Not Detected (Not Detect); Bordetella pertussis Not Detected (Not Detect); Chlamydophila pneumoniae Not Detected (Not Detect); Coronavirus 229E Not Detected (Not Detect); Coronavirus HKU1 Not Detected (Not Detect); Coronavirus NL 63 Not Detected (Not Detect); Coronavirus OC43 Not Detected (Not Detect); Human Metapneumovirus Not Detected (Not Detect); Human Rhinovirus/Enterovirus Not Detected (Not Detect); Influenza A Not Detected (Not Detect); Influenza B Not Detected (Not Detect); Mycoplasma pneumoniae Not Detected (Not Detect); Parainfluenza Virus 1 Not Detected (Not Detect); Parainfluenza Virus 2 Not Detected (Not Detect); Parainfluenza Virus 3 Not Detected (Not Detect); Parainfluenza Virus 4 Not Detected (Not Detect); Respiratory Syncytial Virus Not Detected (Not Detect); SARS- CoV-2 Not Detected (Not Detecte)
[2020-05-19 22:27] LABS: Blood Urea Nitrogen 21 mg/dL (9-20); Carbon Dioxide 22 mmol/L (22-32); Chloride 120 mmol/L (98-107); Estimated Glomerular Filt Rate > 60.0 mL/min (>60); Glucose 97 mg/dL (80-110); HEMOLYSIS < 15 (0-50); Sodium 143 mmol/L (137-145)
[2020-05-19 22:42] LABS: Calcium 6.8 mg/dL (8.4-10.2); Potassium 2.7 mmol/L (3.4-5.1)
[2020-05-19 23:05] LABS: Procalcitonin 0.06 ng/mL (<0.5)
[2020-05-19] MEDS: SODIUM CHLORIDE 0.45% 1,000 ML 75 ML IV (23:07)
[2020-05-19] MEDS: POTASSIUM CHLORIDE 40 MEQ in SODIUM CHLORIDE 0.9% 500 ML 130 ML IV (23:22)
--- NOTE | 2020-05-20 00:36 | PC.NURSE ---
Addendum entered by Hedy Cavazos R.N. 05/20/20 06:47: Patient turned Q2h, HOB kept elevated, cough is becoming more forceful and he is clearing own secretions better this am, SpO2 95-99% on 2L. Original Note: Early Childhood Specialist Note-Patient is tilted toward Rt side, HOB 45 degrees, appears comfortable, does not open eyes to command but will cosmetics presser with Lt hand and raises LUE when asked. Has weak cough, requires deep sx when he desats < 90% and unable to clear own secretions, sputum is thick white with slight pink tinge. Anterior lung sounds clear with sx, fine crackles posterior bases. SB, BP 157/70, afebrile.
[2020-05-20] MEDS: POTASSIUM CHLORIDE 40 MEQ in SODIUM CHLORIDE 0.9% 500 ML 130 ML IV (03:29)
[2020-05-20 04:00] VITALS: O2SAT 97
[2020-05-20 04:32] VITALS: BP 130/60; PULSE 69; RESP 37; TEMP 36.9; O2SAT 95
[2020-05-20 07:02] VITALS: PULSE 49; RESP 20; O2SAT 99
[2020-05-20 08:00] VITALS: BP 142/92; PULSE 56; RESP 30; TEMP 37.4; O2SAT 96; O2SAT 99
[2020-05-20] MEDS: PANTOPRAZOLE 40 MG VIAL IV ×2 (08:22→20:54)
--- NOTE | 2020-05-20 09:27 | SLP.IPNOTE ---
Attempted to see pt for assessment of swallow for comfort intake. Pt kept eyes closed throughout the session and was not responsive to spoon at lips. Discontinued for pt safety. The pt was observed to raise left hand to mouth when he coughed. Cough was weak and wet, pt unable to expel. Attempted verbal commands to raise/lower arm to assess receptive language comprehension. The pt did raise and lower hand x2 following a significant delay since verbal commands. During one movement, he did also cough. Unable to determine if hand movements were reflexive or in response to commands. The pt was not responsive to commands for vocalization or facial movements (i.e., open/squint eyes, open mouth, etc.) Will f/u with Nsg later in day to determine if pt is appropriate for additional assessment attempts.
[2020-05-20 09:28] LABS: Add Manual Diff / Slide Review NO; Basophils Absolute Auto 100 /uL (0-100); Basophils Percent Auto 0.4 % (0-2); Eosinophils Absolute Auto 100 /uL (0-450); Hematocrit 38.3 % (41-53); Hemoglobin 12.8 g/dL (13.5-17.5); Lymphocytes Absolute Auto 1400 /uL (1100-4500); Lymphocytes Percent Auto 9.6 % (25-40); Mean Corpuscular HGB Conc 33.5 % (30-36); Mean Corpuscular Hemoglobin 29.5 PG (26-34); Mean Corpuscular Volume 87.9 fL (80-100); Monocytes Absolute Auto 1400 /uL (0-900); Monocytes Percent Auto 9.5 % (3-14); Neutrophils Absolute Auto 11500 /uL (1500-7000); Neutrophils Percent Auto 79.5 % (50-75); Platelet Count 209 X10^3/uL (150-400); Red Blood Cell Count 4.35 X10^6/uL (4.5-5.9); Red Cell Distribution Width 14.1 % (11.6-14.8); White Blood Cell Count 14.5 X10^3/uL (4.5-11.0)
--- NOTE | 2020-05-20 09:40 | OT.IP.TRT ---
Current Diagnoses Cerebral infarction, unspecified (05/15/20) Occupational Therapy Treatment Note M2 OT-IP Current Condition Start: 05/16/20 15:42 Freq: Status: Active Protocol: Document 05/16/20 13:55 [facility] (Rec: 05/16/20 16:14 [facility] [id number]) Occupational Therapy Current Condition Current Condition Evaluation Date 05/16/20 Treatment Diagnosis CVA Diagnosis Onset Date 05/15/20 M3 OT- IP Subjective and Pain Start: 05/16/20 15:42 Freq: Status: Active Protocol: Document 05/20/20 10:41 [facility] (Rec: 05/20/20 10:46 [facility] [id number]) OT- Subjective Occupational Therapy Visit Type Type Progress Note Visit Start Time 09:30 Visit Stop Time 09:40 Total Visit Minutes 10 Notes Pt is able to follow commands to squeeze hand but unable to reliably follow other commands . Attempted sitting EOB to initiate increased arousal without sucess. OT Pain Assessment Pain Present Pain Present Unable to Respond FLACC Pain Scale Face No particular expression Legs Normal position; relaxed Activity Quiet, moves easily Cry No cry (awake or asleep) Consolability Content, relaxed FLACC Total 0 M4 OT- IP ADL's Start: 05/16/20 15:42 Freq: Status: Active Protocol: Document 05/16/20 13:55 [facility] (Rec: 05/16/20 16:14 [facility] [id number]) OT [id number] Comments OT Self-Feeding Comments NOt at meal time. OT ADL-Grooming General Evaluation Grooming Ability Maximum Assistance Comments OT Grooming Comments Handed wash cloth to pt and unable to use right hand to appropriately wash his face and still needing assist for left hand for completeness. OT ADL-Oral Care Comments Oral Care Comments NOt performed. OT ADL-Dressing General Eval Lower Body Dressing Ability Maximum Assistance Areas Needing Assistance Socks OT ADL-Toileting Comments OT Toileting Comments NOt having to go at this time. OT ADL-Bathing Comments OT Bathing Comments Sponge bath more appropriate at this time. M5 OT- IP IADL's Start: 05/16/20 15:42 Freq: Status: Active Protocol: Document 05/16/20 13:55 [facility] (Rec: 05/16/20 16:14 [facility] [id number]) OT-Instrumental Activities of Daily Living Home Safety Awareness Awareness of Need for Assistance at Home Decreased Awareness Ability to Problem Solve Emergency Unable to Problem Solve Situations Home Safety Comments Pt decrease safety, impulsive, and having difficulty to follow commands at this time due to his CVA. Medication Management Medication Management Comments Pt's states prior was forgetful to take his medications. Money Management Money Management Caregiver Provides Assistance Meal Preparation Meal Preparation Comments Prior pt did the cooking and cleaning. Senior Climate Advisor Senior Climate Advisor Comments Prior pt did the cooking and cleaning. M6 OT- IP Functional Cognition Start: 05/16/20 15:42 Freq: Status: Active Protocol: Document 05/16/20 13:55 [facility] (Rec: 05/16/20 16:14 [facility] [id number]) Cognitive Factors Limiting Selfcare Function Cognitive Ability Level of Alertness Alert,Confusional State Patient Orientation Name Attention Span Ability Capable of Focused Attention, Unable to Sustain Attention Ability to Follow Commands Able to Follow One Step Commands with Increased Time, Able to Follow One Step Commands with Repetition Cognitive Comments Cognitive Assessment Comments Pt very impulsive and needing step by step commands to follow for mobility and FWW use. OT- Vision and Hearing OT- Hearing Assessment OT- Hearing Assessment WFL OT- Vision Assessment Vision Assessment Comments Pt able to track his eyes for his and therapist in the room. M7 OT- IP Mobility and Balance Start: 05/16/20 15:42 Freq: Status: Active Protocol: Document 05/20/20 10:41 [facility] (Rec: 05/20/20 10:46 [facility] [id number]) OT- Bed Mobility Assessment Supine to Sit Supine to Sit Assist Total Assistance,2 Person Assistance,Head of Bed Elevated Sit to Supine Sit to Supine Assist Total Assistance,2 Person Assistance,Head of Bed Elevated Scooting Scooting to Edge of Bed Total Assistance,2 Person Assistance,Head of Bed Elevated Scooting Up and Down in Bed Total Assistance,2 Person Assistance OT- Balance Assessment Sitting Balance and Reactions Static Sitting Balance Ability Poor Dynamic Sitting Balance Ability Poor M8 OT- IP Objective Assessments Start: 05/16/20 15:42 Freq: Status: Active Protocol: Document 05/16/20 13:55 [facility] (Rec: 05/16/20 16:14 [facility] [id number]) OT Strength Comments Strength Comments Pt at least 3+/5 throughout as able to assist for bed mobility needs. OT- Coordination Assessment Upper Extremity Finger to Nose Test Right UE Impaired OT-Muscle Tone Assessment Muscle Tone WNL Yes OT Sensation Assessment Comments Summary Comments Decreased sensation of right UE. Pt decreased ability for coordination and planning of movement for the right UE. Pt did not realize that the wash cloth was not in his right hand when trying to wash his face. In addition pt not able to properly motor plan with right hand to assist to blow his nose or wash his face. M9 OT- IP Assessment and Plan Start: 05/16/20 15:42 Freq: Status: Active Protocol: Document 05/20/20 10:41 [facility] (Rec: 05/20/20 10:46 [facility] [id number]) OT Summary Assessment and Plan Potential Rehabilitation Potential Poor Analytic Complexity at Evaluation Moderate Summary OT Impairments Range of Motion,Strength, Balance,Coordination,Sensation ,Functional Cognition, Functional Mobility,Self- Feeding,Grooming,Dressing, Toileting,Bathing,Toilet Transfers,Shower Transfers, Activity Tolerance Progress Towards Goals Slow Progress due to Medical Issues,Slow Progress due to Activity Tolerance,Slow Progress due to Cognition Assessment Summary Pt seen today to attempt sitting with hopes of increased arousal. Total assist for sup to sit and total assist for sitting balance. Performed WB through the RUE with weight shift in that direction. Pt did not open his eyes or actively participate in any of the session. Pt is able to squeeze hand to verbal cues but unable to open hand or follow any other commands. Pt is not appropriate for OT services at this time given his poor responsiveness. Will discharge order and await new order if pt becomes participatory. Frequency of Treatment Frequency Of Treatment Discharge Discharge Recommendations Transportation Needs at Discharge Stretcher/Ambulance
[2020-05-20 09:41] LABS: BUN Creatinine Ratio 25.3 (6-22); Blood Urea Nitrogen 22 mg/dL (9-20); Calcium 8.2 mg/dL (8.4-10.2); Carbon Dioxide 25 mmol/L (22-32); Chloride 117 mmol/L (98-107); Estimated Glomerular Filt Rate > 60.0 mL/min (>60); Glucose 101 mg/dL (80-110); HEMOLYSIS < 15 (0-50); Potassium 3.9 mmol/L (3.4-5.1); Sodium 144 mmol/L (137-145)
[2020-05-20 09:49] LABS: NT-proBNP (BNP-Adult 18+) 6520 pg/mL (<450)
--- NOTE | 2020-05-20 10:41 | PT-IP ANOTE ---
Pt has not been appropriate for therapy since 05/16. Per discussion at AM interdisciplinary rounds, PT will discharge orders at the request of hospitalist physician. If pt condition improves, PT will remain available for re-consult.
[2020-05-20 11:08] VITALS: BP 186/80; PULSE 56; RESP 28; TEMP 37.1; O2SAT 96
--- NOTE | 2020-05-20 14:35 | P.PN_ITS ---
Subjective Subjective Date Patient Seen: 05/20/20 Time Patient Seen: 14:36 Interval history: Patient is an 80-year-old male with history of coronary artery disease, CABG x 3 vessels about 8 years ago, hypertension and hyperlipidemia admitted initially for an acute CVA. His hospital course was then complicated by hemorrhagic shock secondary to GI bleeding requiring intubation. He was extubated yesterday after further discussion with his family and goals of care conference. Since yesterday he has not had much meaningful interaction. He is following commands on the left, but is becoming less and less responsive over time. He was not alert enough to work with speech therapy. I talked at length with the patient's spouse and the patient's daughter Shelly on the phone. They were able to discuss as a family that the patient indeed would not want life-prolonging therapy including a feeding tube for supplemental nutrition. I stated at this time, his prognosis is extremely poor given that he is not eating or drinking and with this information they thought that they should proceed with further treatment based on at comfort. Ultimately given his shock there may be a more acute component, however we will not be able to no for some time what his new baseline is and without nutrition I would suspected that he will only continue to worsen. Given his asymmetric pupils on exam today, a CT scan could be considered to rule out a hemorrhagic conversion, however at this time it does not appear to likely private branch exchange service advisor. Exam Vital Signs (past 8 hours): - 05/20/20 07:02 05/20/20 08:00 05/20/20 11:08 Temperature 99.3 F 98.7 F Pulse Rate 49 L 56 L 56 L Respiratory Rate 20 30 H 28 H Blood Pressure 142/92 H 186/80 H Pulse Oximetry 99 99 96 Fraction of Inspired Oxygen 0.3 Oxygen Delivery Method Room Air,Nasal Cannula Oxygen Flow Rate 0 Narrative Exam Narrative: He remains quite sedated. He responds with movements of the left hand and left foot. He does not open his eyes. Heart is regular rate and rhythm without murmur. Lungs are clear to auscultation bilaterally. There is no ankle edema His abdomen is soft without apparent tenderness and without organomegaly. He is completely flaccid on the right side both upper and lower extremities. He does not open his eyes when requested, his pupils are asymmetric with L appearing slightly dilated compared to the R. Objective Labs Result Diagrams: 05/20/20 08:45 05/20/20 08:45 Labs: Laboratory Results - last 24 hr 05/16/20 05/19/20 05/19/20 19:19 19:30 22:05 WBC RBC Hgb Hct MCV MCH MCHC RDW Plt Count Neut % (Auto) Lymph % (Auto) [place] % (Auto) Eos % (Auto) Baso % (Auto) Neut # (Auto) Lymph # (Auto) [place] # (Auto) Eos # (Auto) Baso # (Auto) Sodium 143 Potassium 2.7 L* Chloride 120 H Carbon Dioxide 22 BUN 21 H Creatinine 0.75 Estimated GFR > 60.0 BUN/Creatinine Ratio 28.0 H Glucose 97 Calcium 6.8 L NT-Pro-B Natriuret Pep Procalcitonin Chlamy pneumoniae PCR Not detected Adenovirus (PCR) Not detected B.parapertussis DNA PCR Not detected Coronavirus OC43 (PCR) Not detected Coronavirus HKU1 (PCR) Not detected Coronavirus 229E (PCR) Not detected SARS-CoV-2 (PCR) Not detected Coronavirus NL63 (PCR) Not detected Human Metapneumovir PCR Not detected Influenza Type A (PCR) Not detected Influenza Type B (PCR) Not detected M. pneumoniae (PCR) Not detected Parainfluenza 1 (PCR) Not detected Parainfluenza 2 (PCR) Not detected Parainfluenza 3 (PCR) Not detected Parainfluenza 4 (PCR) Not detected RSV (PCR) Not detected Entero/Rhino (PCR) Not detected Crossmatch See Detail 05/19/20 05/20/20 05/20/20 22:05 08:45 08:45 WBC 14.5 H RBC 4.35 L Hgb 12.8 L Hct 38.3 L MCV 87.9 MCH 29.5 MCHC 33.5 RDW 14.1 Plt Count 209 Neut % (Auto) 79.5 H Lymph % (Auto) 9.6 L [place] % (Auto) 9.5 Eos % (Auto) 1.0 L Baso % (Auto) 0.4 Neut # (Auto) 72810 H Lymph # (Auto) 1400 [place] # (Auto) 1400 H Eos # (Auto) 100 Baso # (Auto) 100 Sodium 144 Potassium 3.9 D Chloride 117 H Carbon Dioxide 25 BUN 22 H Creatinine 0.87 Estimated GFR > 60.0 BUN/Creatinine Ratio 25.3 H Glucose 101 Calcium 8.2 L NT-Pro-B Natriuret Pep 6520 H Procalcitonin 0.06 Chlamy pneumoniae PCR Adenovirus (PCR) B.parapertussis DNA PCR Coronavirus OC43 (PCR) Coronavirus HKU1 (PCR) Coronavirus 229E (PCR) SARS-CoV-2 (PCR) Coronavirus NL63 (PCR) Human Metapneumovir PCR Influenza Type A (PCR) Influenza Type B (PCR) M. pneumoniae (PCR) Parainfluenza 1 (PCR) Parainfluenza 2 (PCR) Parainfluenza 3 (PCR) Parainfluenza 4 (PCR) RSV (PCR) Entero/Rhino (PCR) Crossmatch [facility] Medical History Benign neoplasm of colon CAD (coronary artery disease) Chronic diastolic (congestive) heart failure Chronic kidney disease COPD (chronic obstructive pulmonary disease) Gastroesophageal reflux HTN (hypertension) Hyperlipemia Impaired fasting glucose Major depressive disorder Male erectile disorder Surgical History (Updated 05/14/20 @ 09:44 by Sandra Vallejo RN) History of cholecystectomy S/P CABG x 3 Social History household members: spouse Smoking Status: Former smoker Assessment & Plan Assessment & Plan narrative: Patient is an 80-year-old male with history of c oronary artery disease, CABG x 3 vessels about 8 years ago, hypertension and hyperlipidemia admitted initially for an acute CVA. His hospital course was then complicated by hemorrhagic shock secondary to GI bleeding requiring intubation. He was extubated yesterday after further discussion with his family and goals of care conference, and today transitioned to comfort care with plan for hospice at home or respite care. 1. GI Bleed with hemorrhagic shock -acute onset the afternoon of 05/16, concurrent with hemoptysis, also with melena and eventually blood in NG tube after intubation. Continues to have melenotic stools today. -started on IV Protonix with hemoglobin up to 13.2 05/17 after receiving 4 units of packed red blood cells overnight. 05/18 hgb 11.1. 05/19 hgb 11.3 and on 05/20 Hg 12.8. -will defer EGD given goals of care discussed today. -05/17 consulted with the patient's and her 4 stepdaughters, (his daughters) who are all in agreement that the patient would not want to be transferred to a referral center for bronchoscopy and other interventions at this time. -hypotension treated with IVF and Levophed, resolved 2. Hemorrhagic Shock, resolved -hypotension treated with IVF and Levophed, resolved 3. Acute respiratory failure with hypoxemia and hemoptysis -likely in setting of above shock due to GI bleeding leading to aspiration and hemoptysis. -extubated 05/19, provide dyspnea relief with morphine as needed. -DNR/DNI status, plan for focus on comfort. 4. Type 2 ME/atrial fibrillation with rapid ventricular response -demand ischemia from atrial fibrillation rapid ventricular response overnight with rising troponin initially at 0.156 then 0.886 then 0.921 and then 0.353 on 05/18 -EKG reviewed, no acute ST wave changes. -now back in sinus rhythm. Did not require the amiodarone that was just about to be given before he converted. 5. Acute left parietal CVA, present on admission, active -patient presenting with new onset severe aphasia, right facial droop, not candidate for tPA, subsequently has developed moderate weakness in right upper and lower extremity -head CT no acute findings, CT a with complete occlusion left ICA and 80% occluded right ICA, per stroke neurologist ICA occlusions are not likely etiology for his stroke -EKG sinus rhythm but did develop afib with RVR in setting of GI bleeding. -received aspirin and had planned to add Plavix but did not receive it before his hemoptysis/hematemesis occured on 05/16 -allowed permissive hypertension initially. -brain MRI: Acute cortical infarction involving posterior and posteromedial left parietal lobe, no mass effect, chronic small-vessel ischemic disease -echo: Small hyperdynamic LV LVEF 75-80%, normal RV, no significant valvular disease -plans for PT/OT/speech therapy were delayed by the patient's need to be intubated due to active hemoptysis on 05/16. Now comfort measures. If his mental status improves he may benefit from services if he can participate. 6. Bilateral carotid artery occlusion -as noted on CTA he has complete occlusion left ICA and 80% occlusion right ICA, per stroke neurologist was not thought to require urgent intervention -outpatient vascular surgery follow-up for carotid artery stenosis 7, Acute leukocytosis present on admission, active -likely stress-related demargination versus infection, patient is afebrile and has not had a cough -chest x-ray reported as minimal streaky left lung infiltrate likely atelectasis or scar, appears similar to prior years x-rays -urinalysis normal -repeat WBC from 22.1 down to 18.5 on 05/17 and 12.7 on 05/18, slight increase on 05/20. Will stop following given goals of care. 8. Hyperlipidemia -LDL 75 -continue rosuvastatin 20 mg q.d. 9. Essential hypertension -currently not on home meds, per last visit note on 05/07/[address] Weston patient has not been taking his chlorthalidone or metoprolol tartrate 10. Status post bilateral inguinal hernia repair 05/14/2020 -surgical sites without sign of infection, stroke is not related to recent surgery 11. History of depression -holding sertraline 50 mg q.d while intubated. Admitted to inpatient service Code status: Full code initially and on 05/17 changed to DNR, now comfort with plans for hospice. DVT prophylaxis: hold given goals of care. Surrogate decision maker: Spouse (she has been consulting with his 4 daughters)
--- NOTE | 2020-05-20 14:41 | CM.DPC ---
DCP Cont: Patient is a 80 [id number] who continues to be somnolent and nearly non-responsive post extubation on 05/19/20 with only occasionally following directions. ENGRAVER STEEL PLATE and ENGRAVER STEEL [employer]ATE student met with Sasha Munroe this date to educated and review potential discharge plans and offer guidance and support. Sasha reported Mr. Munroe has four daughters and one adopted son who are vested in discharge planning and feels a discussion with provider can be important to determine between hospice care or other options. Sasha reported she does not feel her would want life prolonging interventions if he were to have a poor prognosis and to date there has been a denial for TPN or tube feeding. This PM Dr. Wadsworth confirmed the family (daughter/) are understanding of situation and are in agreement to pursue hospice. In light of the families wishes SW will assist with following up with resources: providing information regarding caregivers, connection with hospice and DME. ENGRAVER STEEL PLATE placed call to [facility] and left a message. Asked JOY More to fax clinical to hospice. ENGRAVER STEEL PLATE and ENGRAVER STEEL PLATE Student met again with spouse she confirms that they are interested in hospice. Notified spouse that [facility] will call her for an informational visit. Provided spouse with options regarding D/C planning. Spouse is aware if patient goes to a facility room and board will be private pay. Encouraged spouse to include patients daughter with D/C plan as spouse does not feel she can take care of patient at home alone. Provided spouse with community care resources. PLAN: Pending anticipate home with hospice vs placement with hospice Mare Hogan ENGRAVER STEEL PLATE Student
--- NOTE | 2020-05-20 15:06 | CM.DPNOTE ---
Faxed ht., wt., clinicals, FS to [facility]; received fax confirmation. Argenis Santo CM Asst.
[2020-05-20] MEDS: SCOPOLAMINE 1 PATCH TOP (15:54)
--- NOTE | 2020-05-20 16:17 | SLP.IPNOTE ---
Checked with Dr. Wadsworth concerning the current status of pt. Pt continues to be somnolent and nearly non-responsive post extubation on 05/19/20 with only occasionally following directions. Pt is not alert enough for assessment of swallowing. Discussed with Dr. Wadsworth, who stated same. Dr. Wadsworth also stated that if pt becomes alert enough for swallowing assessment, ST will be notified. Pt is currently comfort care and is expected to change status to Hospice and d/c home with hospice vs placement with hospice. Will discharge ST from pt services at this time.
[2020-05-20 23:51] VITALS: BP 196/91; PULSE 66; RESP 16; TEMP 37.6; O2SAT 94
[2020-05-21] MEDS: PANTOPRAZOLE 40 MG VIAL IV ×2 (07:31→20:12)
[2020-05-21] MEDS: SODIUM CHLORIDE 0.9% FLUSH 10 ML IV (07:31)
[2020-05-21 07:44] VITALS: BP 192/81; PULSE 59; RESP 19; TEMP 37.2; O2SAT 93
--- NOTE | 2020-05-21 10:49 | P.PN_ITS ---
Subjective Subjective Date Patient Seen: 05/21/20 Time Patient Seen: 10:49 Interval history: Patient is an 80-year-old male with history of coronary artery disease, CABG x 3 vessels about 8 years ago, hypertension and hyperlipidemia admitted initially for an acute CVA. His hospital course was then complicated by hemorrhagic shock secondary to GI bleeding requiring intubation. He was extubated on 05/19 after further discussion with his family and goals of care c onference. Since extubation he has not had much meaningful interaction. He was following commands on the left, but is becoming less and less responsive over time. He was made comfort care yesterday and today his pupils remain asymmetric though slightly more dilated with application of scopalamine patch. He continues to decline today and is non-responsive and not following commands today. Exam Vital Signs (past 8 hours): - 05/21/20 07:44 Temperature 99.0 F Pulse Rate 59 L Respiratory Rate 19 Blood Pressure 192/81 H Pulse Oximetry 93 Fraction of Inspired Oxygen 0.3 Oxygen Delivery Method Room Air Oxygen Flow Rate 0 Narrative Exam Narrative: General: Elderly male, no acute distress, non-responsive HEENT: Nontraumatic, anicteric, pupil more dilated on L Neck: Supple without lymphadenopathy Lungs: mild bibasilar rhonchi, no wheezing. Heart: Normal S1 and S2, regular rate and rhythm, no murmur Abdomen: Nondistended, soft. Extremities: Warm, dry without edema Neurological: occasional yawn with facial asymmetry, not following commands. Objective Labs Result Diagrams: 05/20/20 08:45 05/20/20 08:45 [facility] Medical History Benign neoplasm of colon CAD (coronary artery disease) Chronic diastolic (congestive) heart failure Chronic kidney disease COPD (chronic obstructive pulmonary disease) Gastroesophageal reflux HTN (hypertension) Hyperlipemia Impaired fasting glucose Major depressive disorder Male erectile disorder Surgical History (Updated 05/14/20 @ 09:44 by Sandra Vallejo RN) History of cholecystectomy S/P CABG x 3 Social History household members: spouse Smoking Status: Former smoker Assessment & Plan Assessment & Plan narrative: Patient is an 80-year-old male with history of coronary artery disease, CABG x 3 vessels about 8 years ago, hypertension and hyperlipidemia admitted initially for an acute CVA. His hospital course was then complicated by hemorrhagic shock secondary to GI bleeding requiring intubation. He was extubated on 05/19 after further discussion with his family and goals of care conference, and transitioned to comfort care on 05/20 with plan for hospice at home or respite care. Given current progression of neurological decline over the past 24 hours, his passing does appear to be imminent. 1. GI Bleed with hemorrhagic shock -acute onset the afternoon of 05/16, concurrent with hemoptysis, also with melena and eventually blood in NG tube after intubation. Continues to have melenotic stools today. -started on IV Protonix with hemoglobin up to 13.2 05/17 after receiving 4 units of packed red blood cells overnight. 05/18 hgb 11.1. 05/19 hgb 11.3 and on 05/20 Hg 12.8. -will defer EGD given goals of care discussed today. -05/17 consulted with the patient's and her 4 stepdaughters, (his daughters) who are all in agreement that the patient would not want to be transferred to a referral center for bronchoscopy and other interventions. -hypotension treated with IVF and Levophed, resolved 2. Hemorrhagic Shock, resolved -hypotension treated with IVF and Levophed, resolved 3. Acute respiratory failure with hypoxemia and hemoptysis -likely in setting of above shock due to GI bleeding leading to aspiration and hemoptysis. -extubated 05/19, provide dyspnea relief with morphine as needed. -DNR/DNI status, plan for focus on comfort. 4. Type 2 DC/atrial fibrillation with rapid ventricular response -demand ischemia from atrial fibrillation rapid ventricular response overnight with rising troponin initially at 0.156 then 0.886 then 0.921 and then 0.353 on 05/18 -EKG reviewed, no acute ST wave changes. -now back in sinus rhythm. Did not require the amiodarone that was just about to be given before he converted. 5. Acute left parietal CVA, present on admission, active -patient presenting with new onset severe aphasia, right facial droop, not candidate for tPA, subsequently has developed moderate weakness in right upper and lower extremity -head CT no acute findings, CT a with complete occlusion left ICA and 80% occluded right ICA, per stroke neurologist ICA occlusions are not likely etiology for his stroke -EKG sinus rhythm but did develop afib with RVR in setting of GI bleeding. -received aspirin and had planned to add Plavix but did not receive it before his hemoptysis/hematemesis occured on 05/16 -allowed permissive hypertension initially. -brain MRI: Acute cortical infarction involving posterior and posteromedial left parietal lobe, no mass effect, chronic small-vessel ischemic disease -echo: Small hyperdynamic LV LVEF 75-80%, normal RV, no significant valvular disease -plans for PT/OT/speech therapy were delayed by the patient's need to be intubated due to active hemoptysis on 05/16. Now comfort measures. If his mental status improves he may benefit from services if he can participate. 6. Bilateral carotid artery occlusion -as noted on CTA he has complete occlusion left ICA and 80% occlusion right ICA, per stroke neurologist was not thought to require urgent intervention -outpatient vascular surgery follow-up for carotid artery stenosis 7, Acute leukocytosis present on admission, active -likely stress-related demargination versus infection, patient is afebrile and has not had a cough -chest x-ray reported as minimal streaky left lung infiltrate likely atelectasis or scar, appears similar to prior years x-rays -urinalysis normal -repeat WBC from 22.1 down to 18.5 on 05/17 and 12.7 on 05/18, slight increase on 05/20. Will stop following given goals of care. 8. Hyperlipidemia -LDL 75 -continue rosuvastatin 20 mg q.d. 9. Essential hypertension -currently not on home meds, per last visit note on 05/07/[address] Weston patient has not been taking his chlorthalidone or metoprolol tartrate 10. Status post bilateral inguinal hernia repair 05/14/2020 -surgical sites without sign of infection, stroke is not related to recent surgery 11. History of depression -holding sertraline 50 mg q.d while intubated. Admitted to inpatient service, now on comfort measures, passing appears imminent. Family meeting with hospice for info visit today. Code status: Full code initially and on 05/17 changed to DNR, now comfort with plans for hospice. DVT prophylaxis: hold given goals of care. Surrogate decision maker: Spouse (she has been consulting with his 4 daughters)
--- NOTE | 2020-05-21 15:35 | CM.DANOTE ---
DCP/continued: Reviewed chart. Spoke with provider this AM. He reports that patient now converted on comfort measures only. Provider reports that patient may at [facility]. Provider in agreement to d/c patient with hospice in place. Placed call to Lois at Hospice ph#[phone] she reports that they can open patient with hospice on 05-23-20 in the afternoon. Lois from hospice inquiring about when they can have hospital bed delivered? Met with spouse this AM. She confirms that family wants hospice. Notified spouse that hospice expected to call her today to do informational visit. Spouse in agreement to take patient home with hospice if he does not at [facility]. Notified spouse that hospice can see patient in the residence on . Spouse in agreement and requests that hospital bed be ordered for delivery on morning. P: If patient does not anticipate home with hospice in place on 05-23-20. [facility] to coordinate delivery of hospital bed either Wednesday in afternoon or in AM. Patient will need BLS transport home. DIANN Moran
[2020-05-21] MEDS: MORPHINE 2 MG/ML INJ IV ×2 (17:45→20:12)
[2020-05-21 20:43] VITALS: BP 152/67; PULSE 76; RESP 28; TEMP 37.4; O2SAT 96
[2020-05-22] MEDS: MORPHINE 2 MG/ML INJ IV ×6 (01:02→19:38)
[2020-05-22] MEDS: SODIUM CHLORIDE 0.9% FLUSH 10 ML IV (01:03)
[2020-05-22 08:00] VITALS: BP 141/66; PULSE 80; RESP 30; TEMP 37.4; O2SAT 92
[2020-05-22] MEDS: PANTOPRAZOLE 40 MG VIAL IV ×2 (08:21→21:11)
--- NOTE | 2020-05-22 10:55 | PC.NURSE ---
Addendum entered by Gilda Mdeel R.N. 05/22/20 14:54: Daughter Khadra has been ok'd to be with Pt via MARIAM Vasquez. Family expresses gratitude for bedside care, decline Morphine this afternoon. Pt continues with significant periods of apnea, turning when family agreeable, frequent offers for medication PRN. Family feels pt is comfortable at this time. [place] into see family. IV access SL. Original Note: Am shift Pt is resting quietly in bed at start of shift, noticable grimacing with repositioning. Given Morphine per emar. RR uneven, periods of apnea noted. Update to at bedside, about what to expect with and dying process. Plan was for Hospice tomorrow, but Pt likely to pass prior to the transport home. remains concerned about one adult daughter coming to say goodbye. Will discuss with coding coordinator, as this was ok'd per , when Pt became comfort care 05/21. Await update.
--- NOTE | 2020-05-22 11:20 | PM.PN.1 ---
Subjective Subjective Date Patient Seen: 05/22/20 Time Patient Seen: 11:21 Interval history: Patient is an 80-year-old male with history of coronary artery disease, CABG x 3 vessels about 8 years ago, hypertension and hyperlipidemia admitted initially for an acute CVA. His hospital course was then complicated by hemorrhagic shock secondary to GI bleeding requiring intubation. He was extubated on 05/19 after further discussion with his family and goals of care conference. Since extubation he has not had much meaningful interaction. He was following commands on the left, but is becoming less and less responsive over time. He was made comfort care 05/20. Pending hospice with plans to open tomorrow. Exam Vital Signs (past 8 hours): - 05/22/20 08:00 Temperature 99.4 F Pulse Rate 80 Respiratory Rate 30 H Blood Pressure 141/66 H Pulse Oximetry 92 Fraction of Inspired Oxygen 0.3 Oxygen Delivery Method Room Air Oxygen Flow Rate 0 Narrative Exam Narrative: General: Elderly male, no acute distress, non-responsive HEENT: NCAT Neck: Supple without lymphadenopathy Lungs: shallow respirations, no wheezing. Heart: Normal S1 and S2, regular rate and rhythm, no murmur Abdomen: Nondistended, soft. Extremities: Warm, dry without edema Neurological: occasional yawn with facial asymmetry, not following commands. Objective Labs Result Diagrams: 05/20/20 08:45 05/20/20 08:45 REPLACED BY [facility] Medical History Benign neoplasm of colon CAD (coronary artery disease) Chronic diastolic (congestive) heart failure Chronic kidney disease COPD (chronic obstructive pulmonary disease) Gastroesophageal reflux HTN (hypertension) Hyperlipemia Impaired fasting glucose Major depressive disorder Male erectile disorder Surgical History (Updated 05/14/20 @ 09:44 by Sandra Vallejo RN) History of cholecystectomy S/P CABG x 3 Social History household members: spouse Smoking Status: Former smoker Assessment & Plan Assessment & Plan narrative: Patient is an 80-year-old male with history of coronary artery disease, CABG x 3 vessels about 8 years ago, hypertension and hyperlipidemia admitted initially for an acute CVA. His hospital course was then complicated by hemorrhagic shock secondary to GI bleeding requiring intubation. He was extubated on 05/19 after further discussion with his family and goals of care conference, and transitioned to comfort care on 05/20 with plan for hospice at home or respite care. Given current progression of neurological decline, his passing does appear to be imminent. 1. GI Bleed with hemorrhagic shock -acute onset the afternoon of 05/16, concurrent with hemoptysis, also with melena and eventually blood in NG tube after intubation. Continues to have melenotic stools today. -started on IV Protonix with hemoglobin up to 13.2 05/17 after receiving 4 units of packed red blood cells overnight. 05/18 hgb 11.1. 05/19 hgb 11.3 and on 05/20 Hg 12.8. -will defer EGD given goals of care discussed today. -05/17 consulted with the patient's and her 4 stepdaughters, (his daughters) who are all in agreement that the patient would not want to be transferred to a referral center for bronchoscopy and other interventions. -hypotension treated with IVF and Levophed, resolved 2. Hemorrhagic Shock, resolved -hypotension treated with IVF and Levophed, resolved 3. Acute respiratory failure with hypoxemia and hemoptysis -likely in setting of above shock due to GI bleeding leading to aspiration and hemoptysis. -extubated 05/19, provide dyspnea relief with morphine as needed. -DNR/DNI status, plan for focus on comfort. 4. Type 2 ID/atrial fibrillation with rapid ventricular response -demand ischemia from atrial fibrillation rapid ventricular response overnight with rising troponin initially at 0.156 then 0.886 then 0.921 and then 0.353 on 05/18 -EKG reviewed, no acute ST wave changes. -now back in sinus rhythm. Did not require the amiodarone that was just about to be given before he converted. 5. Acute left parietal CVA, present on admission, active -patient presenting with new onset severe aphasia, right facial droop, not candidate for tPA, subsequently has developed moderate weakness in right upper and lower extremity -head CT no acute findings, CT a with complete occlusion left ICA and 80% occluded right ICA, per stroke neurologist ICA occlusions are not likely etiology for his stroke -EKG sinus rhythm but did develop afib with RVR in setting of GI bleeding. -received aspirin and had planned to add Plavix but did not receive it before his hemoptysis/hematemesis occured on 05/16 -allowed permissive hypertension initially. -brain MRI: Acute cortical infarction involving posterior and posteromedial left parietal lobe, no mass effect, chronic small-vessel ischemic disease -echo: Small hyperdynamic LV LVEF 75-80%, normal RV, no significant valvular disease -plans for PT/OT/speech therapy were delayed by the patient's need to be intubated due to active hemoptysis on 05/16. Now comfort measures. If his mental status improves he may benefit from services if he can participate. 6. Bilateral carotid artery occlusion -as noted on CTA he has complete occlusion left ICA and 80% occlusion right ICA, per stroke neurologist was not thought to require urgent intervention -outpatient vascular surgery follow-up for carotid artery stenosis 7, Acute leukocytosis present on admission, active -likely stress-related demargination versus infection, patient is afebrile and has not had a cough -chest x-ray reported as minimal streaky left lung infiltrate likely atelectasis or scar, appears similar to prior years x-rays -urinalysis normal -repeat WBC from 22.1 down to 18.5 on 05/17 and 12.7 on 05/18, slight increase on 05/20. Will stop following given goals of care. 8. Hyperlipidemia -LDL 75 -discontinued rosuvastatin 20 mg q.d. 9. Essential hypertension -currently not on home meds, per last visit note on 05/07/[address] Weston patient has not been taking his chlorthalidone or metoprolol tartrate 10. Status post bilateral inguinal hernia repair 05/14/2020 -surgical sites without sign of infection, stroke is not seemingly related to recent surgery 11. History of depression -holding sertraline 50 mg q.d Admitted to inpatient service, now on comfort measures, passing appears imminent. Hospice plans to open tomorrow if patient has not passed by then. Code status: Full code initially and on 05/17 changed to DNR, now comfort with plans for hospice. DVT prophylaxis: hold given goals of care. Surrogate decision maker: Spouse (she has been consulting with his 4 daughters)
--- NOTE | 2020-05-22 13:26 | CM.DPNOTE ---
Addendum entered by Saida Billingsley, VALUER 05/23/20 07:58: Notified [facility] [id number] that patient survived the evening, all arranged for transport at 0900, home w/family and [facility] to arrive between [id number] Addendum entered by Saida Jose Cruz, VALUER 05/22/20 15:33: According to LAURI Lynch- acute care team updated- continue plan to DC home w/Hospice in the morning if patient survives the evening. Lois at [facility] updated and Hospice spot held at [phone] 05.23.20, BLS arranged by JOY More for p/u at 0900. YAZAN Original Note: Patient expected to pass here, Lois at [facility] aware and decided to have hospital bed delivered this afternoon in case patient still requires for DC tomorrow. It's unlikely patient will survive this hospitalization and transport home, following closely to assist in any needs that arise. Supportive spouse and dtr Khadra currently at bedside. YAZAN
[2020-05-23] MEDS: MORPHINE 2 MG/ML INJ IV ×4 (00:13→08:05)
--- NOTE | 2020-05-23 07:11 | P.DS_ITS ---
History of Present Illness History of Present Illness Date Patient Seen: 05/23/20 Time Patient Seen: 07:12 Chief complaint: Code Stroke Narrative: As per Dr. Gregg, Patient is an 80-year-old male with history of coronary artery disease, CABG x3 vessels about 8 years ago, hypertension, hyperlipidemia brought to emergency department due to acute change in neurological status. Patient had elective bilateral inguinal hernia repair yesterday May 14. Per spouse, he was feeling a little dizzy later in the evening but otherwise acting normally. He was having some trouble sleeping and did not get to bed until around 2:00 a.m. when he was last witnessed in usual state. This afternoon his spouse heard a thud and found him on the ground between bed and nightstand. She was unable to pick him up and got neighbors assistance and they decided to call 911 since he was not responding to them normally. Medics noted that he had waxing and waning slurring of speech. He was also noted to have right facial droop in the ED. NIHSS was 2 by RN and 3 by . Initial blood pressure in ED was 205/98 and has subsequently been coming down. His CT did not show acute finding. CTA showed 100% occlusion left ICA and 80% occluded right ICA. [facility] stroke neurologist was contacted and did not recommend tPA due to length of time since last known well and low NIHSS score. Neurologist also did not think ICA occlusion was causative of the CVA as his deficits were relatively mild without hemiparesis. Patient was administered aspirin. Patient's spouse states he has taken Tylenol only for postop pain. Labs notable for WBC 22.1, 84% neutrophils, sodium 130, BUN 36, creatinine 1.10, glucose 141, procalcitonin 0.10, COVID negative. Discharge Providers Provider Date of admission: 05/15/20 17:24 Discharge Date: 05/23/20 Primary care physician: James Weston MD Consults: 05/16/20 07:21 Consult to Occupational Therapy Evaluate & Treat Comment: Physician Instructions: Evaluate and treat Consult to Physical Therapy Evaluate & Treat Comment: Physician Instructions: Evaluate and Treat Consult to Speech Therapy Evaluate & Treat Comment: Physician Instructions: Evaluate and treat 05/16/20 18:50 Consult to Dietitian, Adult Routine Comment: Reason For Exam: Patient on Ventilator and NPO 05/16/20 19:00 Consult After Hours PICC Line RN Routine Comment: 05/20/20 14:16 Consult to Hospice Referral Urgent Comment: 05/21/20 15:15 Consult to Discharge Planning Routine Comment: Discharge provider: Jamal Wadsworth DO Summary Hospital Course Discharge Diagnosis: Please see hospital course by problem list noted below Hospital Course: Patient is an 80-year-old male with history of coronary artery disease, CABG x 3 vessels about 8 years ago, hypertension and hyperlipidemia admitted initially for an acute CVA. His hospital course was then complicated by hemorrhagic shock secondary to GI bleeding requiring intubation. He was extubated on 05/19 after further discussion with his family and goals of care conference, and transitioned to comfort care on 05/20 with plan for hospice at home. Given current progression of neurological decline, his passing does appear to be imminent. 1. GI Bleed with hemorrhagic shock -acute onset the afternoon of 05/16, concurrent with hemoptysis, also with melena and eventually blood in NG tube after intubation. Continued to have melenotic stools after comfort measures initiated but to a lesser degree. -started on IV Protonix with hemoglobin up to 13.2 05/17 after receiving 4 units of packed red blood cells overnight. 05/18 hgb 11.1. 05/19 hgb 11.3 and on 05/20 Hg 12.8. -EGD deferred given goals of care. -05/17 consulted with the patient's and her 4 stepdaughters, (his daughters) who are all in agreement that the patient would not want to be transferred to a tertiary center. -hypotension treated with IVF and Levophed, resolved 2. Hemorrhagic Shock, resolved -hypotension treated with IVF and Levophed, resolved 3. Acute respiratory failure with hypoxemia and hemoptysis -likely in setting of above shock due to GI bleeding leading to aspiration and hemoptysis. -extubated 05/19, provide dyspnea relief with morphine as needed. -DNR/DNI status, plan for focus on comfort. 4. Type 2 VA/atrial fibrillation with rapid ventricular response -demand ischemia from atrial fibrillation rapid ventricular response overnight with rising troponin initially at 0.156 then 0.886 then 0.921 and then 0.353 on 05/18 -EKG reviewed, no acute ST wave changes. -now back in sinus rhythm. Did not require the amiodarone that was just about to be given before he converted. 5. Acute left parietal CVA, present on admission, active -patient presenting with new onset severe aphasia, right facial droop, not candidate for tPA, subsequently has developed moderate weakness in right upper and lower extremity -head CT no acute findings, CT a with complete occlusion left ICA and 80% occluded right ICA, per stroke neurologist ICA occlusions are not likely etiology for his stroke -EKG sinus rhythm but did develop afib with RVR in setting of GI bleeding. -received aspirin and had planned to add Plavix but did not receive it before his hemoptysis/hematemesis occured on 05/16 -allowed permissive hypertension initially. -brain MRI: Acute cortical infarction involving posterior and posteromedial left parietal lobe, no mass effect, chronic small-vessel ischemic disease -echo: Small hyperdynamic LV LVEF 75-80%, normal RV, no significant valvular disease -plans for PT/OT/speech therapy were delayed by the patient's need to be intubated due to active hemoptysis on 05/16. Now comfort measures and discharged on hospice. Given progressive neurological decline it is possible he suffered another CVA or hemorrhagic conversion, however management would not have changed and additional imaging was not performed. 6. Bilateral carotid artery occlusion -as noted on CTA he has complete occlusion left ICA and 80% occlusion right ICA, per stroke neurologist was not thought to require urgent intervention on admission 7, Acute leukocytosis present on admission, active -likely stress-related demargination versus infection or possible aspiration event as noted above. -chest x-ray reported as minimal streaky left lung infiltrate likely atelectasis or scar, appears similar to prior years x-rays -urinalysis normal -repeat WBC from 22.1 down to 18.5 on 05/17 and 12.7 on 05/18, slight increase on 05/20. Will stop following given goals of care. 8. Hyperlipidemia -LDL 75 -discontinued rosuvastatin 20 mg q.d. given goals of care. 9. Essential hypertension -currently not on home meds, per last visit note on 05/07/[address] Weston patient has not been taking his chlorthalidone or metoprolol tartrate. Held any medications on discharge. 10. Status post bilateral inguinal hernia repair 05/14/2020 -surgical sites without sign of infection, stroke is not seemingly related to recent surgery 11. History of depression - sertraline 50 mg q.d discontinued Exam Vital Signs (past 8 hours): Fraction of Inspired Oxygen 0.3 Oxygen Delivery Method Room Air Oxygen Flow Rate 0 Narrative Exam Narrative: General: Elderly male, no acute distress, non-responsive HEENT: NCAT Neck: Supple without lymphadenopathy Lungs: shallow respirations, sonorous breathing, no wheezing. Heart: Normal S1 and S2, regular rate and rhythm, no murmur Abdomen: Nondistended, soft. Extremities: Warm, dry without edema Neurological: somnolent, not following commands. Objective Labs Result Diagrams: 05/20/20 08:45 05/20/20 08:45 PFS Medical History Benign neoplasm of colon CAD (coronary artery disease) Chronic diastolic (congestive) heart failure Chronic kidney disease COPD (chronic obstructive pulmonary disease) Gastroesophageal reflux HTN (hypertension) Hyperlipemia Impaired fasting glucose Major depressive disorder Male erectile disorder Surgical History (Updated 05/14/20 @ 09:44 by Sandra Vallejo RN) History of cholecystectomy S/P CABG x 3 Social History household members: spouse Smoking Status: Former smoker Discharge Plan Discharge Plan Patient Disposition: Hospice - Home Provider Discharge Comment: [facility] Discharge orders & Medications Prescriptions: New morphine concentrate 100 mg/5 mL (20 mg/mL) solution 10 mg PO Q4H PRN (Reason: pain) Qty: 120 RF: 0 Discontinued coenzyme Q10 60 mg tablet 60 mg PO DAILY RF: 0 garlic 300 mg capsule 300 mg PO DAILY RF: 0 krill oil 500 mg capsule 500 mg PO DAILY RF: 0 magnesium 250 mg tablet 250 mg PO DAILY RF: 0 potassium chloride 10 mEq capsule, extended release 10 meq PO DAILY RF: 0 turmeric 400 mg capsule 400 mg PO DAILY RF: 0 vitamin B complex [B Complex-Vitamin B12] Tablet 1 tab PO DAILY RF: 0 aspirin 325 mg Tablet 325 mg PO DAILY RF: 0 docusate sodium [Colace] 100 mg capsule 100 mg PO BID Qty: 30 RF: 0 oxycodone 5 mg tablet 5 mg PO Q6H PRN (Reason: pain) Qty: 30 RF: 0 acetaminophen [Tylenol] 325 mg capsule 650 mg PO QID PRN (Reason: pain) Qty: 60 RF: 0 sertraline 50 mg tablet 50 mg PO DAILY RF: 0 ascorbate calcium (vitamin C) 500 mg Tablet 500 mg PO DAILY RF: 0 rosuvastatin 20 mg tablet 20 mg PO DAILY RF: 0 Follow up/Referrals: James Weston MD [Primary Care Provider] - Diet/Activity/Treatments Diet: Diet as Tolerated Activity: [facility] in [facility] Discharge Data Primary Care Provider: James Weston V
--- NOTE | 2020-05-23 08:06 | PC.NURSE ---
Patient resting with eyes closed, respirations at 24, administered PRN morphine.
[2020-05-23 09:06] VITALS: BP 135/64; PULSE 77; RESP 26; TEMP 36.3; O2SAT 95
--- NOTE | 2020-05-23 09:56 | PC.NURSE ---
Patient discharged via BLS, patient's IV's D/C, tolerated. Patient respirations remain <20 prior to d/c.
--- NOTE | 2020-05-23 13:33 | CM.DPNOTE ---
Saida asked me to ax DC Summary [facility]. Fax confirmation received. Argenis Santo CM Asst.
== END 2020-05-23 09:10 | disposition hospice, home (50) | DRG 64 ==
LOC: ED 17:24 → AC 18:09 → ICU 05-16 08:44 → AC 05-27 15:00 → ICU 05-27 15:00
PROVIDERS: Family Medicine; Nurse Practitioner Adult Health; Admitting Provider Internal Medicine; Emergency Provider Emergency Medicine; PCP Internal Medicine; Referring Provider Emergency Medicine; Visit Provider Internal Medicine
DX: I63.9 Cerebral infarction, unspecified (principal); I21.A1 Myocardial infarction type 2; J96.01 Acute respiratory failure with hypoxia; R57.8 Other shock; R04.2 Hemoptysis; K92.1 Melena; I13.0 Hypertensive heart and chronic kidney disease with heart failure and stage 1 through stage 4 chronic kidney disease, or unspecified chronic kidney disease; I50.32 Chronic diastolic (congestive) heart failure; G81.01 Flaccid hemiplegia affecting right dominant side; G81.91 Hemiplegia, unspecified affecting right dominant side; R47.01 Aphasia; R29.810 Facial weakness; D72.829 Elevated white blood cell count, unspecified; I48.91 Unspecified atrial fibrillation; N18.9 Chronic kidney disease, unspecified; Z20.822 Contact with and (suspected) exposure to COVID-19; I25.10 Atherosclerotic heart disease of native coronary artery without angina pectoris; E78.5 Hyperlipidemia, unspecified; F32.9 Major depressive disorder, single episode, unspecified; R29.703 NIHSS score 3; Z87.891 Personal history of nicotine dependence; Z95.1 Presence of aortocoronary bypass graft; W18.30XA Fall on same level, unspecified, initial encounter; Z98.890 Other specified postprocedural states
CPT/HCPCS: 36415; 36430; 36600; 70450; 70496; 70498; 70551; 71045; 71275; 74177; 80048; 80053; 80061; 80320; 81001; 82140; 82550; 82805; 82962; 83605; 83690; 83735; 83880; 84145; 84484; 85007; 85014; 85018; 85025; 85379; 85384; 85610; 85730; 86850; 86900; 86901; 87040; 87633; 87635; 87797; 92610; 93005; 93010; 93306; 94002; 94003; 94762; 94799; 96360; 96361; 97162; 97166; 97530; 99285; C9803; P9016; C9113; J0282; J0330; J0610; J1170; J1650; J1940; J2185; J2270; J2310; J2704; J2765; J3010; J3475; J3480; J7050; J7613; Q9967